=== PATIENT | male | born 1950 | race African-American/Black ===

== ENCOUNTER 2020-10-28 10:37 | Inpatient (IN) | payer MEDICARE, SELFPAY ==
[2020-10-28] VITALS (15 sets, daily range): BP systolic 91–129; BP diastolic 64–79; PULSE 97–115; RESP 20–32; TEMP 35.6–36.7; O2SAT 93–97; BMI 28.0; BMI 27.6
--- NOTE | 2020-10-28 10:53 | EKG12_ITS ---
Test Reason : Blood Pressure : / mmHG Vent. Rate : 112 BPM Atrial Rate : 112 BPM P-R Int : 164 ms QRS Dur : 068 ms QT Int : 310 ms P-R-T Axes : -01 -11 035 degrees QTc Int : 423 ms Sinus tachycardia Otherwise normal ECG Confirmed by URSZULA LEMOS, KENJI ([id number]), commercial lending relationship manager JAX BONDS ([id number]) on 11/01/2020 8:57:17 AM Referred By: CELY Confirmed By:KENJI SEAMAN MD
--- NOTE | 2020-10-28 10:54 | EDS_ITS ---
HPI History of Present Illness Chief Complaint: Shortness of Breath Informant: patient Onset/Context/Timing Onset: Days (2) Context: gradual Timing: Continuous Quality: Positive for - (short of breath) Current Severity: Moderate Maximum Severity: Moderate Worsened by: Exertion Relieved by: Rest Associated Symptoms cough Chest Pain: Positive for Tightness Narrative Narrative: Very poor historian who has been ill for 2 days occasional nonproductive cough, chest tightness, shortness of breath. He presents by squad. He does not talk a lot, he is for instance giving me 2 fingers to indicate that he has been ill for 2 days. States that he is hoarse, but he is able to talk without stridor or respiratory distress. 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 His chest discomfort is nonpleuritic. Shortness of breath is more prominent symptom. No known contact with anyone with Covid that he knows of. He had the Gil and Gil vaccine back in May. No known history of Covid. [facility] Medical History Above knee amputation of right lower extremity Hypertension Home Medications lisinopril 20 mg PO DAILY 10/28/20 [History Last Taken Unknown] Allergy/AdvReac Type Severity Reaction Status Date / Time No Known Allergies Allergy Verified 10/28/20 10:38 Social History Smoking Status: Current every day smoker tobacco type: cigarettes ROS ROS ED Constitutional Constitutional ED: Reports body ache(s), fatigue and malaise; Denies chills or fever(s) Eyes Eyes: Denies change in vision or diplopia ENT ENT ED: Reports hoarseness and sore throat; Denies rhinorrhea Cardiovascular Cardiovascular: Reports chest pain; Denies palpitations Respiratory/Chest Respiratory/Chest: Reports cough and dyspnea Gastrointestinal Gastrointestinal: Reports diarrhea; Denies abdominal pain, nausea or vomiting Genitourinary Genitourinary ED: Denies dysuria or hematuria Musculoskeletal Musculoskeletal: Denies back pain, extremity pain or neck pain Integumentary Denies abscess or rash Neurologic Neurologic: Denies headache(s), paresthesias or weakness Psychiatric Psychiatric: Denies anxiety or suicidal thoughts EXAM Physical Exam Const Vital Signs: 10/28/20 10:39 10/28/20 10:48 10/28/20 10:50 Temperature 98.1 F 98.1 F Temperature Source Oral Oral Pulse Rate 111 H 111 H Respiratory Rate 32 H 26 H Respiratory Effort Short of Breath Respiratory Pattern Tachypnea Blood Pressure 91/71 91/71 Blood Pressure Mean 77 77 Pulse Ox Oxygen Delivery Method Room Air Room Air Oxygen Flow Rate (L/min) 10/28/20 10:55 10/28/20 11:48 10/28/20 12:00 Temperature 98 F 98 F Temperature Source Temporal Temporal Pulse Rate 98 112 H 109 H Respiratory Rate 20 H 23 H 24 H Respiratory Effort Respiratory Pattern Normal Blood Pressure 103/79 103/69 Blood Pressure Mean 87 80 Pulse Ox 96 95 Oxygen Delivery Method Nasal Cannula Nasal Cannula Oxygen Flow Rate (L/min) 4 4 10/28/20 13:00 10/28/20 13:41 10/28/20 14:00 Temperature 98 F 97.9 F Temperature Source Temporal Temporal Pulse Rate 115 H 113 H Respiratory Rate 29 H 29 H Respiratory Effort Respiratory Pattern Blood Pressure 111/78 114/74 Blood Pressure Mean 89 87 Pulse Ox 97 93 Oxygen Delivery Method Nasal Cannula Nasal Cannula Nasal Cannula Oxygen Flow Rate (L/min) 4 4 3 10/28/20 15:04 Temperature 98 F Temperature Source Temporal Pulse Rate 112 H Respiratory Rate 29 H Respiratory Effort Respiratory Pattern Blood Pressure 111/70 Blood Pressure Mean 83 Pulse Ox 94 Oxygen Delivery Method Nasal Cannula Oxygen Flow Rate (L/min) 3 Positive well nourished and well developed General Appearance ED: well developed and NAD HEENT Reports moist mucous membranes normocephalic and atraumatic Eyes PERRL and EOMs intact bilaterally Neck full ROM, no lymphadenopathy and supple Resp normal respiratory effort and clear to auscultation bilaterally Cardio regular rate, regular rhythm and no murmurs Jugular Venous Distention: Negative for JVD Rate: tachycardic GI non-tender and non-distended Auscultation: normoactive bowel sounds Palpation: soft Back/Spine no CVA tenderness General Back: other FROM Extremity normal to inspection Extremity Narrative: Right lower extremity AKA General Extremety ED: Negative for edema, pulses abnormal or tenderness General Extremity: Negative for edema or pulses abnormal Neuro oriented x3, CN's II-XII intact bilaterally and no sensory deficits noted Sensorium / Orientation: awake and alert Motor Exam: strength 5/5 throughout Skin no rashes or lesions noted and no wounds MDM MDM MDM Narrative Medical decision making narrative: There were significant delays in caring for this patient due to him being a very difficult stick, delay in getting blood to send to the lab, and inability to get IV access. We consulted the PICC team to place a midline, thinking initially we would get CT angiography since his D- dimer was so high. Chest x-ray shows lobar infiltrate, and his rapid antigen Covid test returned positive. Again, this patient had been vaccinated in the past. However his creatinine returned at 10 with a BUN of 85. This apparently is new. Therefore CT angiography was discontinued, but he already was given the empiric Lovenox. He had no bleeding, and so far while in the emergency department he has had no bleeding. Other labs as below noted. No hyperkalemia or signs of it on EKG. Unable to start IV antibiotics until midline is going to be placed which is not going to be for at least another hour and he is already been here over 4 hours; therefore oral azithromycin 500 mg is given, he can get the rest of the antibiotics when an IV is obtained. He is clinically and hemodynamically stable at this time and the plan is admission to [facility] floor. I do not think he needs the ICU at this time. Lab Data Attestation: I reviewed the patient's lab results. Labs: Laboratory Results - last 24 hr 10/28/20 10/28/20 10/28/20 13:45 13:45 13:45 WBC 5.9 RBC 5.79 Hgb 15.8 Hct 47.5 MCV 82.0 MCH 27.3 MCHC 33.3 RDW Std Deviation 41.7 RDW Coeff of Alondra 14.1 Plt Count 132 L MPV 11.1 Immature Gran % (Auto) 0.800 Neut % (Auto) 81.3 H Lymph % (Auto) 8.1 L [place] % (Auto) 6.6 Eos % (Auto) 2.9 Baso % (Auto) 0.3 Absolute Neuts (auto) 4.8 Absolute Lymphs (auto) 0.48 L Nucleated RBC % 0 Differential Comment MEASUREMENT SUPERINTENDENT D-Dimer Quant (PE/DVT) Sodium 129 L Potassium 4.4 Chloride 95 L Carbon Dioxide 17.0 L Anion Gap 17 H BUN 85 H Creatinine 10.00 H* Estim Creat Clear Calc 6.29 Est GFR (MDRD) Af Amer 7 L Est GFR (MDRD) Non-Af 6 L BUN/Creatinine Ratio 8.5 L Glucose 122 H Lactic Acid Cancelled Calcium 8.8 Troponin I High Sens 38.3 10/28/20 13:45 WBC RBC Hgb Hct MCV MCH MCHC RDW Std Deviation RDW Coeff of Alondra Plt Count MPV Immature Gran % (Auto) Neut % (Auto) Lymph % (Auto) [place] % (Auto) Eos % (Auto) Baso % (Auto) Absolute Neuts (auto) Absolute Lymphs (auto) Nucleated RBC % Differential Comment D-Dimer Quant (PE/DVT) 1.94 H* Sodium Potassium Chloride Carbon Dioxide Anion Gap BUN Creatinine Estim Creat Clear Calc Est GFR (MDRD) Af Amer Est GFR (MDRD) Non-Af BUN/Creatinine Ratio Glucose Lactic Acid Calcium Troponin I High Sens Radiography Chest X-Ray - ED: 1 View, Read by ED Physician and Right Infiltrate Diagnostic Testing: Radiology Impression Chest X-Ray 10/28/20 12:35 IMPRESSION: The right upper lobe pneumonic infiltrate is identified with atelectasis and possibly a left lung base pneumonic infiltrate. Electronically Signed: Nick Pugh DO at 13:05 EDT Tel , Service support , EKG Initial EKG: Attestation: I personally reviewed and interpreted this EKG as follows: Interpretation: No Acute Injury Pattern and Sinus Tachycardia Prior: No Prior Discharge Plan Dx/Rx/DC Orders Clinical Impression: COVID-19, Pneumonia, Acute renal failure (ARF), Hypoxemia Disposition Disposition: Acute Care [facility]
[2020-10-28] MEDS: Albuterol 2.5 MG/3 ML VIAL.NEB. INHALATION (10:55)
--- NOTE | 2020-10-28 12:35 | RAD_ITS ---
EXAM DESCRIPTION: PORTABLE AP CHEST CLINICAL HISTORY: 70 years Male, cough sob cough sob COMPARISON: None FINDINGS: The thorax is intact. The heart and mediastinum appear to be within normal limits. The lungs show a patchy pneumonic infiltrate involving the anterior segment of the right upper lobe outlining the minor fissure. There is subsegmental atelectasis and possibly infiltrate also seen in the left lingula. RAD/Chest 1 View (Portable) IMPRESSION: The right upper lobe pneumonic infiltrate is identified with atelectasis and possibly a left lung base pneumonic infiltrate. Electronically Signed: Nick Pugh DO at 13:05 EDT Tel , Service support ,
[2020-10-28 14:07] LABS: Absolute Lymphocyte Count 0.48 X10^3/uL (0.83-4.51); Absolute Neutrophil Count 4.8 X10^3/uL (2.0-7.7); Basophil# 0.02 X10^3/uL; Basophil% 0.3 % (0-1); Differential Indicated SCAN CRITERIA MET; Eosinophil# 0.17 X10^3/uL; Eosinophils% 2.9 % (0-5); Hematocrit 47.5 % (40-54); Hemoglobin 15.8 g/dL (13.0-16.5); Lymphocyte # 0.48 X10^3/ul (0.83-4.51); Lymphocyte % 8.1 % (19-41); Mean Corp Hgb Conc 33.3 g/dL (32-36); Mean Corpuscular Hgb 27.3 pg (27.0-32.0); Mean Platelet Vol. 11.1 fl (6.2-12.0); Monocyte# 0.39 X10^3/uL; Monocyte% 6.6 % (0-10); NRBC Flagged by Analyzer 0 % (0-5); Neutrophil # 4.78 X10^3/uL (2.7-7.7); Neutrophil % 81.3 % (47-70); POSITIVE DIFFERENTIAL YES; Platelet Count 132 K/mm3 (150-450); RBC Distribution Width CV 14.1 % (11.6-14.6); RBC Distribution Width SD 41.7 fl (35.1-43.9); Red Blood Count 5.79 M/mm3 (4.6-6.2); White Blood Count 5.9 K/mm3 (4.4-11.0)
[2020-10-28 14:26] LABS: D-Dimer Quantitative (DVT/PE) 1.94 FEU/ug/m (0.27-0.49)
--- NOTE | 2020-10-28 14:41 | ED.RN ---
[employer] CALLED FOR LINE PLACEMENT
[2020-10-28 14:48] LABS: Anion Gap 17 (5-15); BUN 85 mg/dL (7-18); BUN/Creat Ratio 8.5 RATIO (10-20); Calcium,Total 8.8 mg/dL (8.5-10.1); Chloride 95 mmol/L (98-107); EST Glomerular Filtration Rate 6 mL/min (>60); Est Glom Filt Rate - Afr Amer 7 mL/min (>60); Estimated Creatinine Clearance 6.29 ml/min; Glucose 122 mg/dL (74-106); Potassium 4.4 mmol/L (3.5-5.1); Sodium Level 129 mmol/L (136-145); Troponin-I HS 38.3 pg/mL (3.0-78.5)
[2020-10-28] MEDS: Enoxaparin 80 MG/0.8 ML Syringe SC (14:51)
--- NOTE | 2020-10-28 16:36 | CT_ITS ---
STUDY: CT CHEST WITHOUT CONTRAST REASON FOR EXAM: Male, 70 years old. COVID pneumonia RADIATION DOSAGE (If Supplied By Facility): CTDIvol = ( 14.27 ) mGy, DLP = ( 506.17 ) mGycm TECHNIQUE: Transaxial imaging was performed without the administration of intravenous contrast material. Individualized dose optimization techniques were used for this CT. COMPARISON: None. FINDINGS: There are multifocal patchy areas of increased density with interstitial thickening in both lower lobes and to lesser extent the upper lobes consistent with Covid 19 pneumonia. There is no demonstrated pleural abnormality. Normal heart and pericardium. Normal mediastinum. Normal hilar regions. Normal unenhanced pulmonary arteries. Normal aorta arch and descending thoracic aorta. Dorsal spine demonstrates degenerative change Gallbladder has been removed surgically. CT/Chest without Contrast IMPRESSION: Findings consistent with Covid 19 pneumonia more pronounced in the lower lobes. Electronically Signed: Joao Madrigal MD at 19:12 EDT , Service support ,
--- NOTE | 2020-10-28 16:36 | US_ITS ---
STUDY: RENAL ULTRASOUND - COMPLETE REASON FOR EXAM: Male, 70 years old. WOJCIECH TECHNIQUE: Ultrasound evaluation of the kidneys was performed with real-time and static bingham-scale imaging. COMPARISON: None. FINDINGS: RIGHT KIDNEY: Normal location of the right kidney, which is normal in size. The right kidney measures 9.2 x 4.4 x 3.8 cm. There is a normal cortex of the right kidney. The renal cortex measures 1.4 cm. There is no right renal mass or cyst. There are no right renal calculi. There is no right hydronephrosis. DISTAL RIGHT URETER: Partially visualized adjacent to the prostate. LEFT KIDNEY: Normal location of the left kidney, which is normal in size. The left kidney measures 9.7 x 5.2 x 5.0 cm. There is a normal cortex of the left kidney. The renal cortex measures 1.5 cm. There are 2 small cysts in the left kidney measuring 1.1 x 1.2 x 0.9 and 1.0 x 0.8 x 0.8 cm. There are no left renal calculi. There is no left hydronephrosis. DISTAL LEFT URETER: A few visualized adjacent to the enlarged prostate. The prostate is enlarged and impresses into the base of the bladder. This visualized low attenuating cystic structure within the prostate. Prostate volume was given at 70.9 mL. There is a small prostate low echo nodule, or cyst BLADDER: The distended urinary bladder has a volume of 63 ml. There is no demonstrated mass within the urinary bladder. There are no demonstrated bladder calculi. US/Kidney and Bladder IMPRESSION: Small left renal cysts. No hydronephrosis. Enlarged prostate small cystic structure recommend follow-up prostate laboratory values clinical exam. The prostate pushes into the base of the bladder. Cannot exclude chronic partial outlet obstruction. Electronically Signed: Safia Driver MD at 10:02 EDT Tel , Service support ,
--- NOTE | 2020-10-28 17:00 | NURSING ---
executive director of nursing here for Midline placement.
--- NOTE | 2020-10-28 17:45 | NURSING ---
Patient off unit for US and CT.
[2020-10-28 18:26] LABS: Ferritin 940 ng/mL (26-388)
[2020-10-28] MEDS: Dextrose 5%/0.9% NaCl 1,000 ML 125 ML IV (18:34)
[2020-10-28] MEDS: 0.9% Saline Lock 10 ML Syringe IV (18:39)
[2020-10-28] MEDS: dexAMETHasone 4 MG/ML Vial IV (18:39)
--- NOTE | 2020-10-28 19:48 | PCM.HP.STD ---
HPI - General General Date of Admission: 10/28/20 HPI Narrative DALLAS CRABTREE, is a 70 M who presents with systemic symptoms of malaise, weakness, fatigue, generalized muscle aches and pains and arthralgias which have been ongoing for the last several days. Of note the patient is really a very poor historian and obtaining a history from him extremely challenging. Uncertain if this is due to the severity of his illness at baseline cognitive impairment. Suspect more likely the former. Found to be COVID-19 positive and noted to be hypoxic as well. Of note is that he did receive the Gil & Gil vaccine in May. Patient is unable to provide much as to his past medical history also family history. [facility] Medical History Above knee amputation of right lower extremity Hypertension Home Medications lisinopril 20 mg PO DAILY 10/28/20 [History Last Taken Unknown] Allergy/AdvReac Type Severity Reaction Status Date / Time No Known Allergies Allergy Verified 10/28/20 10:38 Social History Smoking Status: Current every day smoker tobacco type: cigarettes ROS ROS Narrative Denies any chest pain. Denies any abdominal pain or nausea vomiting. Does admit to having diarrhea. All other systems reviewed as much as patient is able to provide and essentially negative. Vital Signs Vital Signs Vital Signs: 10/28/20 10:39 10/28/20 10:48 10/28/20 10:50 Temperature 36.7 C 36.7 C Temperature Source Oral Oral Pulse Rate 111 H 111 H Respiratory Rate 32 H 26 H Respiratory Effort Short of Breath Respiratory Depth Respiratory Pattern Tachypnea Blood Pressure 91/71 91/71 Blood Pressure Mean 77 77 Blood Pressure Source Blood Pressure Position Blood Pressure Location Pulse Ox Oxygen Delivery Method Room Air Room Air Oxygen Flow Rate (L/min) 10/28/20 10:55 10/28/20 11:48 10/28/20 12:00 Temperature 36.6 C 36.6 C Temperature Source Temporal Temporal Pulse Rate 98 112 H 109 H Respiratory Rate 20 H 23 H 24 H Respiratory Effort Respiratory Depth Respiratory Pattern Normal Blood Pressure 103/79 103/69 Blood Pressure Mean 87 80 Blood Pressure Source Blood Pressure Position Blood Pressure Location Pulse Ox 96 95 Oxygen Delivery Method Nasal Cannula Nasal Cannula Oxygen Flow Rate (L/min) 4 4 10/28/20 13:00 10/28/20 13:41 10/28/20 14:00 Temperature 36.6 C 36.6 C Temperature Source Temporal Temporal Pulse Rate 115 H 113 H Respiratory Rate 29 H 29 H Respiratory Effort Respiratory Depth Respiratory Pattern Blood Pressure 111/78 114/74 Blood Pressure Mean 89 87 Blood Pressure Source Blood Pressure Position Blood Pressure Location Pulse Ox 97 93 Oxygen Delivery Method Nasal Cannula Nasal Cannula Nasal Cannula Oxygen Flow Rate (L/min) 4 4 3 10/28/20 15:04 10/28/20 17:30 10/28/20 18:00 Temperature 36.6 C 36.1 C L Temperature Source Temporal Oral Pulse Rate 112 H 115 H Respiratory Rate 29 H 24 H Respiratory Effort Normal Non-Labored Respiratory Depth Normal Respiratory Pattern Normal Blood Pressure 111/70 113/64 Blood Pressure Mean 83 80 Blood Pressure Source Monitor Blood Pressure Position Semi-Fowlers Blood Pressure Location Right Arm Pulse Ox 94 93 Oxygen Delivery Method Nasal Cannula Nasal Cannula Nasal Cannula Oxygen Flow Rate (L/min) 3 5 6 10/28/20 18:26 10/28/20 18:51 Temperature 35.6 C L Temperature Source Oral Pulse Rate 115 H 115 H Respiratory Rate 22 H Respiratory Effort Respiratory Depth Respiratory Pattern Blood Pressure 129/72 H Blood Pressure Mean 91 Blood Pressure Source Monitor Blood Pressure Position Semi-Fowlers Blood Pressure Location Right Arm Pulse Ox 95 Oxygen Delivery Method Nasal Cannula Oxygen Flow Rate (L/min) 6 Weight Weight: 77.746 kg Body Mass Index (BMI) 27.6 Physical Exam Narrative General exam. Acutely and chronically ill-appearing. Lethargic, psychomotor retardation. HEENT. Oral mucosa is dry, mucosae pink Neck. Neck is supple. Heart. First and second heart sounds heard. No murmurs. Lungs. Lungs are clear to auscultation anteriorly and laterally. Abdomen. Soft and full. Nontender no organomegaly. No palpable masses. Extremities. Patient is status post left BKA. 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 Psychomotor retardation, oriented x3, power in all extremities 4+/5. All other organ systems examined and essentially noncontributory. Results Lab / Micro Data Result Diagrams: 10/28/20 13:45 10/28/20 13:45 Labs: Laboratory Results - last 24 hr 10/28/20 13:45: WBC 5.9, RBC 5.79, Hgb 15.8, Hct 47.5, MCV 82.0, MCH 27.3, MCHC 33.3, RDW Std Deviation 41.7, RDW Coeff of Alondra 14.1, Plt Count 132 L, MPV 11.1, Immature Gran % (Auto) 0.800, Neut % (Auto) 81.3 H, Lymph % (Auto) 8.1 L, [place] % (Auto) 6.6, Eos % (Auto) 2.9, Baso % (Auto) 0.3, Absolute Neuts (auto) 4.8, Absolute Lymphs (auto) 0.48 L, Nucleated RBC % 0, Differential Comment MANAGER MECHANICAL MAINTENANCE 10/28/20 13:45: Sodium 129 L, Potassium 4.4, Chloride 95 L, Carbon Dioxide 17.0 L, Anion Gap 17 H, BUN 85 H, Creatinine 10.00 H*, Estim Creat Clear Calc 6.29, Est GFR (MDRD) Af Amer 7 L, Est GFR (MDRD) Non-Af 6 L, BUN/Creatinine Ratio 8.5 L, Glucose 122 H, Calcium 8.8, Troponin I High Sens 38.3 10/28/20 13:45: Lactic Acid Cancelled 10/28/20 13:45: D-Dimer Quant (PE/DVT) 1.94 H* 10/28/20 13:45: Ferritin 940 H Micro: Microbiology 10/28/20 11:55 Mucosa - Nose SARS-CoV-2 Antigen (Rapid) - Final SARS-CoV-2 (COVID 19) 10/28/20 11:55 Mucosa - Nose Influenza Types A,B Direct FA (KENNY) - Final Radiology Impression Chest X-Ray 10/28/20 12:35 IMPRESSION: The right upper lobe pneumonic infiltrate is identified with atelectasis and possibly a left lung base pneumonic infiltrate. Electronically Signed: Dallas Pugh DO at 13:05 EDT Tel , Service support , Chest CT 10/28/20 16:36 IMPRESSION: Findings consistent with Covid 19 pneumonia more pronounced in the lower lobes. Electronically Signed: Joao Madrigal MD at 19:12 EDT , Service support , Assessment & Plan Assessment/Plan (1) Pneumonia due to COVID-19 virus: PLAN: Occurred despite having received COVID-19 vaccine. Unable to get remdesivir due to renal failure. Will start on dexamethasone. Consult infectious disease. Airborne and contact isolation precautions. (2) Acute and chronic respiratory failure with hypoxia: PLAN: Secondary to COVID-19 pneumonia. Oxygen supplementation. Monitor oxygen saturations. Titrate oxygen supplementation as necessary. (3) Acute kidney injury: PLAN: Uncertain if this is acute kidney injury, acute on chronic kidney injury or progression of chronic kidney disease. Patient has had diarrhea for the last few days and oral intake has been impaired as well and so may be of prerenal etiology. Patient on lisinopril for hypertension and this will be discontinued for now. Check urinalysis, urine sodium, renal ultrasound to rule out renal medical disease obstructive uropathy, and consult nephrology. Work-up for other potential etiologies. Gentle fluid hydration with normal saline. Charges/Coding Visit Charges Inpatient E&M: 63041 Init Hosp L3
[2020-10-28] MEDS: Heparin Injection (Vial) 5,000 UNIT/ML VIAL 5000 UNIT SC (20:17)
[2020-10-28] MEDS: Ceftriaxone 1 GM/50 ML BAG IV (20:18)
[2020-10-28 22:08] LABS: Partial Thromboplast Time 36.5 Seconds (24.1-36.2)
[2020-10-28 22:12] LABS: LDH 615 U/L (87-241)
[2020-10-29] VITALS (13 sets, daily range): BP systolic 103–119; BP diastolic 74–84; PULSE 81–91; RESP 20–28; TEMP 36.2–37.2; O2SAT 92–96
[2020-10-29] MEDS: Dextrose 5%/0.9% NaCl 1,000 ML 125 ML IV ×2 (04:33→15:08)
[2020-10-29] MEDS: Heparin Injection (Vial) 5,000 UNIT/ML VIAL 5000 UNIT SC ×3 (05:41→20:32)
[2020-10-29] MEDS: dexAMETHasone 4 MG/ML Vial IV (09:41)
[2020-10-29] MEDS: Ceftriaxone 1 GM/50 ML BAG IV (09:43)
[2020-10-29 10:02] LABS: Absolute Lymphocyte Count 0.48 X10^3/uL (0.83-4.51); Absolute Neutrophil Count 3.4 X10^3/uL (2.0-7.7); Basophil# 0.01 X10^3/uL; Basophil% 0.2 % (0-1); Hematocrit 43.2 % (40-54); Hemoglobin 14.5 g/dL (13.0-16.5); Lymphocyte # 0.48 X10^3/ul (0.83-4.51); Lymphocyte % 11.7 % (19-41); Mean Corp Hgb Conc 33.6 g/dL (32-36); Mean Corpuscular Hgb 27.7 pg (27.0-32.0); Mean Corpuscular Volume 82.4 fL (80-94); Mean Platelet Vol. 10.8 fl (6.2-12.0); Monocyte# 0.23 X10^3/uL; Monocyte% 5.6 % (0-10); NRBC Flagged by Analyzer 0 % (0-5); Neutrophil # 3.36 X10^3/uL (2.7-7.7); Neutrophil % 81.8 % (47-70); POSITIVE DIFFERENTIAL YES; POSITIVE MORPHOLOGY YES; Platelet Count 161 K/mm3 (150-450); RBC Distribution Width CV 14.4 % (11.6-14.6); RBC Distribution Width SD 42.9 fl (35.1-43.9); Red Blood Count 5.24 M/mm3 (4.6-6.2); White Blood Count 4.1 K/mm3 (4.4-11.0)
[2020-10-29 10:09] LABS: Differential Indicated SCAN CRITERIA MET
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
[2020-10-29 10:41] LABS: ALB/GLOB Ratio 0.5 RATIO (0.9-2.4); AST(SGOT) 82 U/L (15-37); Alanine Aminotransfer ALT/SGPT 53 U/L (16-61); Albumin, Serum 2.7 g/dL (3.2-5.0); Alkaline Phosphatase 47 U/L (45-117); Anion Gap 12 (5-15); BUN 85 mg/dL (7-18); Calcium,Total 8.2 mg/dL (8.5-10.1); Chloride 102 mmol/L (98-107); Creatinine, Serum 7.11 mg/dL (0.70-1.30); EST Glomerular Filtration Rate 8 mL/min (>60); Est Glom Filt Rate - Afr Amer 10 mL/min (>60); Estimated Creatinine Clearance 8.85 ml/min; Globulin 5.1 g/dL (2.2-4.2); Glucose 144 mg/dL (74-106); Phosphorus 4.4 mg/dL (2.5-4.9); Protein, Total 7.8 g/dL (6.4-8.2); Sodium Level 133 mmol/L (136-145); Thyroid Stim Hormone (TSH) 0.23 uIU/mL (0.358-3.74)
[2020-10-29 11:09] LABS: HIV - WCH Non-Reactive (Nonreactive); Procalcitonin 0.48 ng/mL (0.00-0.09)
--- NOTE | 2020-10-29 12:20 | CASEMGMT ---
WILIAM REDDY Assessment: Face to Face with pt for initial transition planning/care coordination assessment. WILIAM REDDY introduced self and role at [facility], pt voices understanding and consents to assessment. Pt is A/O x4 and answers all questions appropriately at this time. Pt speaks very softly. Pt sitting up in bed in no distress with O2 on. Care providers, pharmacy, and demographics verified/updated. Admitting Dx:Covid pna, lobar pna, arf, hypoxemia PCP: Pt does not remember his PCP's name. Specialists:Pt denies having any specialists. Preferred Pharmacy: [facility] Retail Insurance: Verenice BLACKMAN [employer] Advantage Prescription Benefit: yes LW/HPOA: Pt denies having a LW/DPOA. LNOK: Yaya Sanchez, brother Living Arrangements: Pt lives in a single story house with no steps to enter, alone. Pt states he is I in ADL's and denies concerns at home. Pt states he uses a motorized w/c. Transportation: Pt states he drives and denies concerns with transportation. DME/HHC/SNF: Pt has a motorized w/c, crutches and prosthetic leg. Pt states he has had HHC but is unsure of the agency. 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 Pt states his work transported him by van from his hometown to work. Pt states he got covid from another employee in the van. Pt was tested for covid here at [facility]. Pt states no concerns with going home at time of dc. He states his sister lives beside him and can help with his care. Pt is able to quarantine post dc and his sister is able to get him groceries and supplies. Pt states his work will be transporting him home via van. Pt states no further concerns/needs. CM to follow all home needs and set up out of state. Pt is not aware of any DME companies in his hometown should he need O2. Advised pt to ask CM if any further question/concerns/needs arise, voices understanding. Pt Goal: Home Plan: Home with sister support.
--- NOTE | 2020-10-29 12:51 | PN.HOSP_ITS ---
Subjective Subjective Patient was seen and examined today, it is difficult to get a good history from the patient, he came to the ER at [facility] with complaints of shortness of breath, he was in town in [place] due to employment, he easily lives in [place]. Patient states he had the Gil & Gil COVID-19 vaccine in May of this year, he denies any serious ongoing medical problems although he states he does take blood pressure medications. Lab work done in the emergency room revealed a highly elevated creatinine, patient denied to this examiner any history of renal failure. I performed a PCR COVID-19 test on the patient today which was positive. Due to the patient's high flow oxygen rate this morning (7 L) I elected to have pulmonary medicine see the patient. I also talked at length with nephrology today, patient's repeat creatinine today was improved and he is putting out urine and so at this time nephrology does not think the patient needs dialysis. Patient denies any fever or chills at this time to this examiner and he denies any severe shortness of breath at this time. Objective Data Objective Data Vital Signs: Vital Signs Temp Pulse Resp BP Pulse Ox 97.3 F L 89 20 H 103/76 94 10/29/20 09:00 10/29/20 09:00 10/29/20 09:00 10/29/20 09:00 10/29/20 09:00 Oxygen Flow Rate (L/min) 7 Oxygen Delivery Method Nasal Cannula Weight: 77.8 kg Body Mass Index (BMI) 27.6 Intake & Output: Intake and Output for Last 24 Hours 10/27/20 10/28/20 10/29/20 23:59 23:59 23:59 Intake Total 334.17 / 434.17 2503.33 / 2503.33 Output Total 1100 / 1100 Balance 334.17 / 134.17 1403.33 / 1403.33 Medical Nutrition Assessment Dietitian: Nutrition Therapy Diagnosis Start: 10/29/20 11:27 Freq: Status: Active Protocol: Document 10/29/20 11:44 ANIL (Rec: 10/29/20 11:44 ANIL [id number]) Nutrition Malnutrition Evidence of Malnutrition Exists Yes Malnutrition (severe): Acute Illness/Injury Evidenced By Suboptimal Energy Intake ( Severe),Weight Loss (Severe) Clinical Problem Acute Disease or Injury Related Malnutrition Etiology related to acute illness Signs/Symptoms as evidenced by 5% wt loss x 1 mo and <50% po intake x 5 days prior to admission Status Active Problem Recommendation Dietitian Recommendations/Changes Will liberalize diet to Regular low sodium, d/t signs and symptoms of malnutrition, with mech soft consistency for ease of chewing - no teeth and dentures at home. 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 10/28/20 13:45: Sodium 129 L, Potassium 4.4, Chloride 95 L, Carbon Dioxide 17.0 L, Anion Gap 17 H, BUN 85 H, Creatinine 10.00 H*, Estim Creat Clear Calc 6.29, Est GFR (MDRD) Af Amer 7 L, Est GFR (MDRD) Non-Af 6 L, BUN/Creatinine Ratio 8.5 L, Glucose 122 H, Calcium 8.8, Troponin I High Sens 38.3 10/28/20 13:45: Lactic Acid Cancelled 10/28/20 13:45: D-Dimer Quant (PE/DVT) 1.94 H* 10/28/20 13:45: Ferritin 940 H 10/28/20 13:45: Lactate Dehydrogenase 615 H 10/28/20 21:40: APTT 36.5 H 10/29/20 09:25: COVID-19 (FROY) Detected 10/29/20 09:50: Procalcitonin 0.48 H, HIV 1&2 Antibody Non-Reactive 10/29/20 09:50: WBC 4.1 L, RBC 5.24, Hgb 14.5, Hct 43.2, MCV 82.4, MCH 27.7, MCHC 33.6, RDW Std Deviation 42.9, RDW Coeff of Alondra 14.4, Plt Count 161, MPV 10.8, Immature Gran % (Auto) 0.700, Neut % (Auto) 81.8 H, Lymph % (Auto) 11.7 L, [place] % (Auto) 5.6, Eos % (Auto) 0.0, Baso % (Auto) 0.2, Absolute Neuts (auto) 3.4, Absolute Lymphs (auto) 0.48 L, Nucleated RBC % 0, Diff Path Review July10/29/20 09:50: Sodium 133 L, Potassium 4.0, Chloride 102, Carbon Dioxide 19.0 L , Anion Gap 12, BUN 85 H, Creatinine 7.11 H, Estim Creat Clear Calc 8.85, Est GFR (MDRD) Af Amer 10 L, Est GFR (MDRD) Non-Af 8 L, BUN/Creatinine Ratio 12.0, Glucose 144 H, Calcium 8.2 L, Phosphorus 4.4, Total Bilirubin 0.40, AST 82 H, ALT 53, Alkaline Phosphatase 47, Total Protein 7.8, Albumin 2.7 L, Globulin 5.1 H, Albumin/Globulin Ratio 0.5 L, TSH 0.23 L Micro: Microbiology 10/28/20 11:55 Mucosa - Nose SARS-CoV-2 Antigen (Rapid) - Final SARS-CoV-2 (COVID 19) 10/28/20 11:55 Mucosa - Nose Influenza Types A,B Direct FA (KENNY) - Final Radiography Diagnostic Testing: Radiology Impression Chest X-Ray 10/28/20 12:35 IMPRESSION: The right upper lobe pneumonic infiltrate is identified with atelectasis and possibly a left lung base pneumonic infiltrate. Electronically Signed: Nick Pugh DO at 13:05 EDT Tel , Service support , Chest CT 10/28/20 16:36 IMPRESSION: Findings consistent with Covid 19 pneumonia more pronounced in the lower lobes. Electronically Signed: Joao Madrigal MD at 19:12 EDT , Service support , Renal Ultrasound 10/28/20 16:36 IMPRESSION: Small left renal cysts. No hydronephrosis. Enlarged prostate small cystic structure recommend follow-up prostate laboratory values clinical exam. The prostate pushes into the base of the bladder. Cannot exclude chronic partial outlet obstruction. Electronically Signed: Safia Driver MD at 10:02 EDT Tel , Service support , Physical Exam Const alert, oriented x3, no apparent distress and healthy appearing General Appearance: cooperative, well kempt and well developed Orientation / Consciousness: awake, oriented to person, oriented to place and oriented to time HEENT normocephalic, head/scalp atraumatic and moist oral mucous membranes Head and Scalp: normocephalic Eyes PERRL, EOMs intact bilaterally and conjunctivae normal Neck nuchal rigidity, supple, no JVD, thyroid normal and no carotid bruits General: trachea midline Resp normal respiratory effort, no retractions, no use of accessory muscles and clear to auscultation bilaterally Auscultation: Negative for rales, rhonchi or wheezes Cardio regular rate, regular rhythm, S1 normal heart sound, S2 normal heart sound, no murmurs, no rub and no gallops GI normal to inspection, nondistended, normoactive bowel sounds, soft to palpation, non-tender and non-distended Extremity no clubbing, cyanosis or edema Skin no rashes or lesions noted General Skin Exam: no breakdown Neuro oriented x3, CN's II-XII intact bilaterally, no focal motor deficits and no sensory deficits noted Sensorium / Orientation: awake and alert Speech: speech normal Psych thought process normal and affect normal Assessment & Plan Assessment/Plan (1) Pneumonia due to COVID-19 virus: PLAN: 1. COVID-19 pneumonia-it appears that the patient has COVID-19 pneumonia despite adequate vaccination, I talked with pulmonary medicine about his care and pulmonary medicine does not feel he is a candidate for remdesivir due to his severe kidney dysfunction at this time. Patient will be treated with dexamethasone and supportive care. #2 acute kidney failure-etiology unclear, it is possible the patient has ATN, nephrology will follow the patient #3 essential hypertension #4 acute hypoxic respiratory failure secondary to #1-patient's O2 sat will be monitored, pulmonary medicine is participating in his care #5 probable BPH-patient's renal ultrasound was read out as showing an enlarged prostate with a small cystic structure, I will order a PSA test. No hydronephrosis was noted. Charges/Coding Visit Charges Inpatient E&M: 15874 Subs Hosp L2
[2020-10-29 13:05] LABS: Mucous, Urine 0 SEEN /hpf (<or=2+); White Blood Cells 0 SEEN /hpf (0-5)
[2020-10-29 13:17] LABS: Color, Urine Yellow (Yellow); Glucose, Dipstick Normal (Normal); Ketone-Dipstick Negative (Negative); Leukocyte Esterase-Dipstick Negative /ul (Negative); Nitrite-Dipstick Negative (Negative); Occult Blood-Urine 150 /ul (Negative); Protein-Dipstick 100 mg/dl (Negative); Urine Bilirubin Dipstick Negative (Negative); Urine Clarity Sl. Cloudy (Clear); Urine Urobilinogen Normal (Normal)
[2020-10-29 13:22] LABS: Urine Sodium 28 mmol/L (Not Establ.)
[2020-10-29 13:26] LABS: Red Blood Cells-Urine 0-5 SEEN /hpf (0-5); Squamous Epithelial Cells - UA 0-5 SEEN /hpf (0-5)
[2020-10-29 13:27] LABS: Amorphous Sediment 1+; Bacteria 1+ /hpf (None Seen)
--- NOTE | 2020-10-29 18:26 | PCM.CONS.R ---
Assessment & Plan Assessment/Plan (1) Acute kidney injury: PLAN: no past records available. so far renal US without hydronephrosis. UA shows some protein and blood cells. other labs, elevated LDH with normal Platelets and HB, Elevated protein gap, elevated PSA. not sure if he has any chronic kidney disease but renal size is not low. with fluids alone cr is better, although BUN is not better a whole lot. could be all volume depletion. if it does not improve tomorrow will order further work up. dw Dr Parker Being treated for COVID with decadron and steroids HPI Consult Data Date of Consult: 10/29/20 HPI Narrative HPI Narrative: DALLAS CRABTREE, is a 70 M who presents to hospital with shortness of breath. renal consulted for WOJCIECH. patient is from [place], came to [place] to work for [employer] . somewhat poor historian. says he does not see a doctor regularly, takes BP meds. unable to tell me who gives him BP meds. denies any urinary symptoms, kidney issues in the past. currently denies any complaints. [facility] Medical History Above knee amputation of right lower extremity Hypertension Home Medications lisinopril 20 mg PO DAILY 10/28/20 [History Last Taken Unknown] Allergy/AdvReac Type Severity Reaction Status Date / Time No Known Allergies Allergy Verified 10/28/20 10:38 Social History Smoking Status: Current every day smoker tobacco type: cigarettes Physical Exam Narrative Alert awake oriented x 3 no obvious distress no pallor no icterus no JVD s1s2 no murmurs lungs clear abdomen soft no organomegaly no edema no cyanosis santos + Medical Records Data Medical Nutrition Assessment Dietitian: Nutrition Therapy Diagnosis Start: 10/29/20 11:27 Freq: Status: Active Protocol: Document 10/29/20 11:44 ANIL (Rec: 10/29/20 11:44 ANIL [id number]) Nutrition Malnutrition Evidence of Malnutrition Exists Yes Malnutrition (severe): Acute Illness/Injury Evidenced By Suboptimal Energy Intake ( Severe),Weight Loss (Severe) Clinical Problem Acute Disease or Injury Related Malnutrition Etiology related to acute illness Signs/Symptoms as evidenced by 5% wt loss x 1 mo and <50% po intake x 5 days prior to admission Status Active Problem Recommendation Dietitian Recommendations/Changes Will liberalize diet to Regular low sodium, d/t signs and symptoms of malnutrition, with [place] clinich soft consistency for ease of chewing - no teeth and dentures at home. Will provide 120 ml ensure enlive w/ meals Lab / Micro Data Result Diagrams: 10/29/20 09:50 10/29/20 09:50 Labs: Laboratory Results - last 24 hr 10/28/20 13:45: Ferritin 940 H 10/28/20 13:45: Lactate Dehydrogenase 615 H 10/28/20 21:40: APTT 36.5 H 10/29/20 01:15: Urine Color Yellow, Urine Clarity Sl. Cloudy, Urine pH 5.0, Ur Specific [place] 1.030, Urine Protein 100 H, Urine Glucose (UA) Normal, Urine Ketones Negative, Urine Occult Blood 150 H, Urine Nitrite Negative, Urine Bilirubin Negative, Urine Urobilinogen Normal, Ur Leukocyte Esterase Negative, Urine RBC 0-5 SEEN, Urine WBC 0 SEEN, Ur Squamous Epith Cells 0-5 SEEN, Amorphous Sediment 1+, Urine Bacteria 1+, Urine Mucus 0 SEEN 10/29/20 01:15: Ur Random Sodium 28 10/29/20 09:25: COVID-19 (FROY) Detected 10/29/20 09:50: Procalcitonin 0.48 H, HIV 1&2 Antibody Non-Reactive 10/29/20 09:50: WBC 4.1 L, RBC 5.24, Hgb 14.5, Hct 43.2, MCV 82.4, MCH 27.7, MCHC 33.6, RDW Std Deviation 42.9, RDW Coeff of Alondra 14.4, Plt Count 161, MPV 10.8, Immature Gran % (Auto) 0.700, Neut % (Auto) 81.8 H, Lymph % (Auto) 11.7 L, [place] % (Auto) 5.6, Eos % (Auto) 0.0, Baso % (Auto) 0.2, Absolute Neuts (auto) 3.4, Absolute Lymphs (auto) 0.48 L, Nucleated RBC % 0, Diff Path Review July10/29/20 09:50: Sodium 133 L, Potassium 4.0, Chloride 102, Carbon Dioxide 19.0 L, Anion Gap 12, BUN 85 H, Creatinine 7.11 H, Estim Creat Clear Calc 8.85, Est GFR (MDRD) Af Amer 10 L, Est GFR (MDRD) Non-Af 8 L, BUN/Creatinine Ratio 12.0, Glucose 144 H, Calcium 8.2 L, Phosphorus 4.4, Total Bilirubin 0.40, AST 82 H, ALT 53, Alkaline Phosphatase 47, Total Protein 7.8, Albumin 2.7 L, Globulin 5.1 H, Albumin/Globulin Ratio 0.5 L, TSH 0.23 L 10/29/20 09:50: Total PSA 39.60 H Radiology Impression Chest CT 10/28/20 16:36 IMPRESSION: Findings consistent with Covid 19 pneumonia more pronounced in the lower lobes. Electronically Signed: Joao Madrigal MD at 19:12 EDT , Service support , Renal Ultrasound 10/28/20 16:36 IMPRESSION: Small left renal cysts. No hydronephrosis. Enlarged prostate small cystic structure recommend follow-up prostate laboratory values clinical exam. The prostate pushes into the base of the bladder. Cannot exclude chronic partial outlet obstruction. Electronically Signed: Safia Driver MD at 10:02 EDT Tel , Service support ,
[2020-10-30] VITALS (12 sets, daily range): BP systolic 100–139; BP diastolic 75–99; PULSE 67–88; RESP 17–22; TEMP 36.3–37; O2SAT 94–97
[2020-10-30] MEDS: Dextrose 5%/0.9% NaCl 1,000 ML 125 ML IV ×2 (00:40→09:24)
[2020-10-30] MEDS: Acetaminophen 325 MG Tablet 650 MG PO ×2 (05:04→17:45)
[2020-10-30] MEDS: Heparin Injection (Vial) 5,000 UNIT/ML VIAL 5000 UNIT SC ×3 (05:05→20:44)
[2020-10-30 06:26] LABS: Absolute Lymphocyte Count 0.45 X10^3/uL (0.83-4.51); Absolute Neutrophil Count 5.7 X10^3/uL (2.0-7.7); Basophil# 0.01 X10^3/uL; Basophil% 0.1 % (0-1); Hematocrit 40.6 % (40-54); Hemoglobin 13.4 g/dL (13.0-16.5); Lymphocyte # 0.45 X10^3/ul (0.83-4.51); Lymphocyte % 6.7 % (19-41); Mean Corpuscular Hgb 27.1 pg (27.0-32.0); Mean Corpuscular Volume 82.2 fL (80-94); Mean Platelet Vol. 11.3 fl (6.2-12.0); Monocyte# 0.43 X10^3/uL; Monocyte% 6.4 % (0-10); NRBC Flagged by Analyzer 0 % (0-5); Neutrophil # 5.72 X10^3/uL (2.7-7.7); Neutrophil % 85.9 % (47-70); POSITIVE DIFFERENTIAL YES; Platelet Count 166 K/mm3 (150-450); RBC Distribution Width CV 14.4 % (11.6-14.6); RBC Distribution Width SD 42.7 fl (35.1-43.9); Red Blood Count 4.94 M/mm3 (4.6-6.2); White Blood Count 6.7 K/mm3 (4.4-11.0)
[2020-10-30 06:41] LABS: Differential Indicated SCAN CRITERIA MET
[2020-10-30 07:00] LABS: Anion Gap 12 (5-15); BUN 73 mg/dL (7-18); BUN/Creat Ratio 20.9 RATIO (10-20); Chloride 109 mmol/L (98-107); EST Glomerular Filtration Rate 19 mL/min (>60); Est Glom Filt Rate - Afr Amer 22 mL/min (>60); Estimated Creatinine Clearance 17.98 ml/min; Glucose 151 mg/dL (74-106); Potassium 4.1 mmol/L (3.5-5.1); Sodium Level 135 mmol/L (136-145)
--- NOTE | 2020-10-30 08:53 | PN.CC_ITS ---
Assessment & Plan Assessment/Plan (1) Pneumonia due to COVID-19 virus: (2) Acute kidney injury: (3) Hypoxemia: PLAN: RECOMMENDATIONS: 1. Continue intervention for renal failure per nephrology 2. Continue with anticoagulation 3. Treat with Decadron, but avoid Remdesivir 4. Increase activity as tolerated 5. Reasonable to continue antibiotics pending culture data 6. Potential discharge if able to tolerate 6 L or less IMPRESSIONS: 1. Acute on possible chronic kidney disease Patient with significantly elevated BUN and creatinine. Patient's mentation is much improved, along with creatinine today. Patient does report a history of renal dysfunction, but baseline is unknown. Patient should have records from [facility] requested to help guide therapy. Await nephrology's recommendations for possible dialysis. Patient appears to be improving from a renal standpoint. Continue with nephrology recommendations. Will likely not require any hemodialysis. 2. Acute hypoxic respiratory insufficiency secondary to COVID-19 Patient with bilateral groundglass opacities noted on CT scan of the chest. Patient was given Gil & Gil by report and rapid/PCR Covid has been positive. Patient can be treated with Decadron, but use of Remdesivir would be contraindicated given renal function. Patient does have a history of smoking in the past, so COPD would be a consideration. Hold SPENCER-I. Clubbing is suggestive of senior care hypoxia, but may be congenital. Continue to wean oxygen as tolerated. If patient able to tolerate ambulation on 6 L or less, potential discharge. Will need to discuss with case management as patient is originally from the [facility] and plans on going back after discharge. 3. Advanced age/Poor historian Complicates care, management, recovery and prognosis. Request records from [facility]. Subjective Subjective Patient overall is doing well. Patient is thinking more clearly and faster to respond today than yesterday. Patient continues to have coughing episodes, but denies production. Patient denies any nausea or vomiting. Objective Data Objective Data Vital Signs: Vital Signs Temp Pulse Resp BP Pulse Ox 36.4 C L 84 17 117/84 H 94 10/30/20 05:03 10/30/20 05:18 10/30/20 05:03 10/30/20 05:03 10/30/20 05:03 Oxygen Flow Rate (L/min) 5 Oxygen Delivery Method Nasal Cannula Weight: 78.4 kg Body Mass Index (BMI) 27.6 Intake & Output: Intake and Output for Last 24 Hours 10/28/20 10/29/20 10/30/20 23:59 23:59 23:59 Intake Total 334.17 / 434.17 4488.75 / 4688.75 680 / 680 Output Total 1500 / 1850 950 / 950 Balance 334.17 / 134.17 2988.75 / 2838.75 -270 / -270 Medical Nutrition Assessment Dietitian: Nutrition Therapy Diagnosis Start: 10/29/20 11:27 Freq: Status: Active Protocol: Document 10/29/20 11:44 SLA (Rec: 10/29/20 11:44 SLA [id number]) Nutrition Malnutrition Evidence of Malnutrition Exists Yes Malnutrition (severe): Acute Illness/Injury Evidenced By Suboptimal Energy Intake ( Severe),Weight Loss (Severe) Clinical Problem Acute Disease or Injury Related Malnutrition Etiology related to acute illness Signs/Symptoms as evidenced by 5% wt loss x 1 mo and <50% po intake x 5 days prior to admission Status Active Problem Recommendation Dietitian Recommendations/Changes Will liberalize diet to Regular low sodium, d/t signs and symptoms of malnutrition, with mech soft consistency for ease of chewing - no teeth and dentures at home. Will provide 120 ml ensure enlive w/ meals Lab / Micro Data Result Diagrams: 10/30/20 05:49 10/30/20 05:49 Labs: Laboratory Results - last 24 hr 10/29/20 01:15: Urine Color Yellow, Urine Clarity Sl. Cloudy, Urine pH 5.0, Ur Specific [place] 1.030, Urine Protein 100 H, Urine Glucose (UA) Normal, Urine Ketones Negative, Urine Occult Blood 150 H, Urine Nitrite Negative, Urine Bilirubin Negative, Urine Urobilinogen Normal, Ur Leukocyte Esterase Negative, Urine RBC 0-5 SEEN, Urine WBC 0 SEEN, Ur Squamous Epith Cells 0-5 SEEN, Amorphous Sediment 1+, Urine Bacteria 1+, Urine Mucus 0 SEEN 10/29/20 01:15: Ur Random Sodium 28 10/29/20 09:25: COVID-19 (FROY) Detected 10/29/20 09:50: Procalcitonin 0.48 H, HIV 1&2 Antibody Non-Reactive 10/29/20 09:50: WBC 4.1 L, RBC 5.24, Hgb 14.5, Hct 43.2, MCV 82.4, MCH 27.7, MCHC 33.6, RDW Std Deviation 42.9, RDW Coeff of Alondra 14.4, Plt Count 161, MPV 10.8, Immature Gran % (Auto) 0.700, Neut % (Auto) 81.8 H, Lymph % (Auto) 11.7 L, [place] % (Auto) 5.6, Eos % (Auto) 0.0, Baso % (Auto) 0.2, Absolute Neuts (auto) 3.4, Absolute Lymphs (auto) 0.48 L, Nucleated RBC % 0, Diff Path Review July10/29/20 09:50: Sodium 133 L, Potassium 4.0, Chloride 102, Carbon Dioxide 19.0 L , Anion Gap 12, BUN 85 H, Creatinine 7.11 H, Estim Creat Clear Calc 8.85, Est GFR (MDRD) Af Amer 10 L, Est GFR (MDRD) Non-Af 8 L, BUN/Creatinine Ratio 12.0, Glucose 144 H, Calcium 8.2 L, Phosphorus 4.4, Total Bilirubin 0.40, AST 82 H, ALT 53, Alkaline Phosphatase 47, Total Protein 7.8, Albumin 2.7 L, Globulin 5.1 H, Albumin/Globulin Ratio 0.5 L, TSH 0.23 L 10/29/20 09:50: Total PSA 39.60 H 10/30/20 05:49: WBC 6.7, RBC 4.94, Hgb 13.4, Hct 40.6, MCV 82.2, MCH 27.1, MCHC 33.0, RDW Std Deviation 42.7, RDW Coeff of Alondra 14.4, Plt Count 166, MPV 11.3, Immature Gran % (Auto) 0.900, Neut % (Auto) 85.9 H, Lymph % (Auto) 6.7 L, [place] % (Auto) 6.4, Eos % (Auto) 0.0, Baso % (Auto) 0.1, Absolute Neuts (auto) 5.7, Absolute Lymphs (auto) 0.45 L, Nucleated RBC % 0 10/30/20 05:49: Sodium 135 L, Potassium 4.1, Chloride 109 H, Carbon Dioxide 14.0 L, Anion Gap 12, BUN 73 H, Creatinine 3.50 H, Estim Creat Clear Calc 17.98, Est GFR (MDRD) Af Amer 22 L, Est GFR (MDRD) Non-Af 19 L, BUN/Creatinine Ratio 20.9 H , Glucose 151 H, Calcium 8.0 L Micro: Microbiology 10/28/20 11:55 Mucosa - Nose SARS-CoV-2 Antigen (Rapid) - Final SARS-CoV-2 (COVID 19) 10/28/20 11:55 Mucosa - Nose Influenza Types A,B Direct FA (KENNY) - Final Radiography Diagnostic Testing: Radiology Impression Renal Ultrasound 10/28/20 16:36 IMPRESSION: Small left renal cysts. No hydronephrosis. Enlarged prostate small cystic structure recommend follow-up prostate laboratory values clinical exam. The prostate pushes into the base of the bladder. Cannot exclude chronic partial outlet obstruction. Electronically Signed: Safia Driver MD at 10:02 EDT Tel , Service support , Physical Exam Narrative Nasal cannula in place Const alert and no apparent distress General Appearance: cooperative and well developed HEENT normocephalic, head/scalp atraumatic and moist oral mucous membranes Eyes PERRL and EOMs intact bilaterally Neck full ROM and no lymphadenopathy Chest inspection of chest normal Resp normal respiratory effort and no use of accessory muscles Auscultation: diminished lung sounds; Negative for rales, rhonchi or wheezes Percussion: Negative for dullness Cardio regular rate, regular rhythm, S1 normal heart sound, S2 normal heart sound, no murmurs, no rub and no gallops GI normal to inspection, nondistended, normoactive bowel sounds no CVA tenderness Extremity Extremity Narrative: Right AKA General Extremity: clubbing; Negative for cyanosis or edema Skin Skin Narrative: Some ulcers of the lower extremities in various stages of healing, but none open or appearing infected General Skin Exam: dry skin Neuro CN's II-XII intact bilaterally, moves all extremities and no focal motor deficits Neuro Narrative: Much better mentation today compared to yesterday. Nonfocal exam Psych cooperative and affect normal Charges/Coding Visit Charges Inpatient E&M: 36229 Subs Hosp L2
[2020-10-30 08:56] LABS: Haptoglobin 527 mg/dL (32-363)
[2020-10-30] MEDS: Ceftriaxone 1 GM/50 ML BAG IV (09:24)
[2020-10-30] MEDS: 0.9% Saline Lock 10 ML Syringe IV (09:26)
[2020-10-30] MEDS: dexAMETHasone 4 MG/ML Vial IV (09:26)
--- NOTE | 2020-10-30 16:39 | PN.HOSP_ITS ---
Subjective Subjective The validity of patient's review of systems was compromised by his mental status and difficulty with short-term memory. He did not report any chest pain, pleuritic discomfort, shortness of breath, or cough on direct questioning. Objective Data Objective Data Vital Signs: Vital Signs Temp Pulse Resp BP Pulse Ox 98.6 F 85 22 H 110/77 97 10/30/20 15:10 10/30/20 15:10 10/30/20 15:10 10/30/20 15:10 10/30/20 15:10 Oxygen Flow Rate (L/min) 4 Oxygen Delivery Method Nasal Cannula Weight: 172 lb 13.478 oz Body Mass Index (BMI) 27.6 Intake & Output: Intake and Output for Last 24 Hours 10/28/20 10/29/20 10/30/20 23:59 23:59 23:59 Intake Total 334.17 / 434.17 4488.75 / 4688.75 3622.5 / 3622.5 Output Total 1500 / 1850 1450 / 1450 Balance 334.17 / 134.17 2988.75 / 2838.75 2172.5 / 2172.5 Medical Nutrition Assessment Dietitian: Nutrition Therapy Diagnosis Start: 10/29/20 11:27 Freq: Status: Active Protocol: Document 10/29/20 11:44 ANIL (Rec: 10/29/20 11:44 ANIL [id number]) Nutrition Malnutrition Evidence of Malnutrition Exists Yes Malnutrition (severe): Acute Illness/Injury Evidenced By Suboptimal Energy Intake ( Severe),Weight Loss (Severe) Clinical Problem Acute Disease or Injury Related Malnutrition Etiology related to acute illness Signs/Symptoms as evidenced by 5% wt loss x 1 mo and <50% po intake x 5 days prior to admission Status Active Problem Recommendation Dietitian Recommendations/Changes Will liberalize diet to Regular low sodium, d/t signs and symptoms of malnutrition, with mech soft consistency for ease of chewing - no teeth and dentures at home. Will provide 120 ml ensure enlive w/ meals Lab / Micro Data Result Diagrams: 10/30/20 05:49 10/30/20 05:49 Labs: Laboratory Results - last 24 hr 10/30/20 05:49: WBC 6.7, RBC 4.94, Hgb 13.4, Hct 40.6, MCV 82.2, MCH 27.1, MCHC 33.0, RDW Std Deviation 42.7, RDW Coeff of Alondra 14.4, Plt Count 166, MPV 11.3, Immature Gran % (Auto) 0.900, Neut % (Auto) 85.9 H, Lymph % (Auto) 6.7 L, [place] % (Auto) 6.4, Eos % (Auto) 0.0, Baso % (Auto) 0.1, Absolute Neuts (auto) 5.7, Absolute Lymphs (auto) 0.45 L, Nucleated RBC % 0 10/30/20 05:49: Sodium 135 L, Potassium 4.1, Chloride 109 H, Carbon Dioxide 14.0 L, Anion Gap 12, BUN 73 H, Creatinine 3.50 H, Estim Creat Clear Calc 17.98, Est GFR (MDRD) Af Amer 22 L, Est GFR (MDRD) Non-Af 19 L, BUN/Creatinine Ratio 20.9 H , Glucose 151 H, Calcium 8.0 L Micro: Microbiology 10/28/20 13:45 Blood Culture (Wb) - Anticubital Left Blood Culture - Preliminary No growth in 48 hours. 10/28/20 11:55 Mucosa - Nose SARS-CoV-2 Antigen (Rapid) - Final SARS-CoV-2 (COVID 19) 10/28/20 11:55 Mucosa - Nose Influenza Types A,B Direct FA (KENNY) - Final Physical Exam Narrative Lying at a 30 degree although horizontal with tachypnea but no acute distress. Decreased breath sounds bilaterally with scattered rhonchi but no rales or wheezing. Distant, regular heart sounds with no murmurs or gallops. Abdomen was soft and nontender with no grimacing to palpation. He had a right BKA with some tenderness at the stump but no erythema. He had 2+ pitting edema in the pretibial area on the left with chronic venous stasis changes. He had scar deformity on the distal thigh and pretibial area on the left. The patient's left leg is hyperextended at the knee with no ability to flex at the knee. He was alert and interactive but confused about his location and was unaware of time. He had a flat affect with a depressed mood. Assessment & Plan Assessment/Plan (1) COVID-19: (2) Acute renal failure (ARF): PLAN: 70-year-old with hypoxemia secondary to Covid pneumonia complicated by acute renal failure in the setting of chronic hypertension, overweight, tobacco use disorder, and acute transaminitis, markedly elevated PSA (probable prostate cancer), and an acute metabolic encephalopathy with severe protein calorie malnutrition. The patient will continue with supplemental oxygen for his Covid pneumonia and hypoxemia. He is receiving steroids for his Covid pneumonia but is not a candidate for remdesivir with his kidney function. He will need home oxygen assessment 24 hours prior to discharge to consider home oxygen therapy. His creatinine is down to 3.5 and his BUN is down to 73 with supportive care-we will follow his BMP daily. Given his serum bicarbonate of 14 and chloride of 109, I will change his IV fluids given his hyperchloremic metabolic acidosis. I will start him on half-normal saline with 50 mEq of bicarbonate and monitor his BMP for his serum CO2 level. Nephrology will continue to follow-he had no evidence of hydronephrosis but he does have proteinuria. I will repeat his AST on the morning of 10/31/2020 with his elevated level of 82. He will need further evaluation of his PSA in the outpatient setting-I will order a percent free PSA. He will continue with the empiric coverage of Zithromax and ceftriaxone while waiting for culture results. His confusion persists and may relate to uremic symptoms from his acute kidney injury-he may need a CT scan of the head. Nutrition did recommend meal alterations with dietary supplements with his severe protein calorie malnutrition. He has heparin ordered for DVT prophylaxis. The patient is a full code. I did speak with nursing about trying to track down a family member. She had spoken to the patient's brother. The patient was talking about working at the [employer] [facility]. Apparently, that has been verified. Nursing will try to provide me a phone number for a discussion with the daughter. The patient appears to have prostate cancer with his acute kidney injury. He is unable to participate in any part of the discussion given his metabolic encephalopathy. Social work will need to assist with placement as the patient will need isolation for his Covid pneumonia prior to returning home. Charges/Coding Visit Charges Inpatient E&M: 95049 Subs Hosp L3
[2020-10-31] VITALS (13 sets, daily range): BP systolic 102–146; BP diastolic 68–96; PULSE 77–99; RESP 20–26; TEMP 36.1–36.6; O2SAT 91–95
[2020-10-31] MEDS: Acetaminophen 325 MG Tablet 650 MG PO ×3 (02:29→22:45)
--- NOTE | 2020-10-31 03:06 | CPS ---
decreased O2 to 5 lpm
[2020-10-31] MEDS: Heparin Injection (Vial) 5,000 UNIT/ML VIAL 5000 UNIT SC ×3 (05:23→22:45)
[2020-10-31 07:05] LABS: Absolute Lymphocyte Count 0.58 X10^3/uL (0.83-4.51); Absolute Neutrophil Count 6.1 X10^3/uL (2.0-7.7); Basophil# 0.01 X10^3/uL; Basophil% 0.1 % (0-1); Hematocrit 41.6 % (40-54); Hemoglobin 13.4 g/dL (13.0-16.5); Lymphocyte # 0.58 X10^3/ul (0.83-4.51); Lymphocyte % 8.1 % (19-41); Mean Corp Hgb Conc 32.2 g/dL (32-36); Mean Corpuscular Hgb 27.6 pg (27.0-32.0); Mean Corpuscular Volume 85.8 fL (80-94); Mean Platelet Vol. 10.4 fl (6.2-12.0); Monocyte# 0.37 X10^3/uL; Monocyte% 5.2 % (0-10); NRBC Flagged by Analyzer 0 % (0-5); Neutrophil # 6.11 X10^3/uL (2.7-7.7); Neutrophil % 85.8 % (47-70); POSITIVE DIFFERENTIAL YES; Platelet Count 160 K/mm3 (150-450); RBC Distribution Width CV 14.8 % (11.6-14.6); RBC Distribution Width SD 47.1 fl (35.1-43.9); Red Blood Count 4.85 M/mm3 (4.6-6.2); White Blood Count 7.1 K/mm3 (4.4-11.0)
[2020-10-31 07:11] LABS: Differential Indicated SCAN CRITERIA MET
[2020-10-31 07:37] LABS: AST(SGOT) 75 U/L (15-37); Anion Gap 9 (5-15); BUN 53 mg/dL (7-18); Calcium,Total 8.2 mg/dL (8.5-10.1); Chloride 112 mmol/L (98-107); Creatinine, Serum 1.83 mg/dL (0.70-1.30); EST Glomerular Filtration Rate 39 mL/min (>60); Est Glom Filt Rate - Afr Amer 47 mL/min (>60); Estimated Creatinine Clearance 34.38 ml/min; Glucose 109 mg/dL (74-106); LDH 588 U/L (87-241); Potassium 4.2 mmol/L (3.5-5.1); Sodium Level 140 mmol/L (136-145)
--- NOTE | 2020-10-31 07:39 | PN.HOSP_ITS ---
Subjective Subjective Patient is still short of breath, conversational dyspnea although cough has improved. Discussed with ID Objective Data Objective Data Vital Signs: Vital Signs Temp Pulse Resp BP Pulse Ox 97.8 F 88 20 H 124/76 H 93 10/31/20 05:25 10/31/20 05:25 10/31/20 05:25 10/31/20 05:25 10/31/20 05:25 Oxygen Flow Rate (L/min) 5 Oxygen Delivery Method Nasal Cannula Weight: 174 lb 9.698 oz Body Mass Index (BMI) 27.6 Intake & Output: Intake and Output for Last 24 Hours 10/29/20 10/30/20 10/31/20 23:59 23:59 23:59 Intake Total 4488.75 / 4688.75 4202.5 / 4602.5 1450 / 1450 Output Total 1500 / 1850 1750 / 2000 450 / 450 Balance 2988.75 / 2838.75 2452.5 / 2602.5 1000 / 1000 Medical Nutrition Assessment Dietitian: Nutrition Therapy Diagnosis Start: 10/29/20 11:27 Freq: Status: Active Protocol: Document 10/29/20 11:44 ANIL (Rec: 10/29/20 11:44 ANIL [id number]) Nutrition Malnutrition Evidence of Malnutrition Exists Yes Malnutrition (severe): Acute Illness/Injury Evidenced By Suboptimal Energy Intake ( Severe),Weight Loss (Severe) Clinical Problem Acute Disease or Injury Related Malnutrition Etiology related to acute illness Signs/Symptoms as evidenced by 5% wt loss x 1 mo and <50% po intake x 5 days prior to admission Status Active Problem Recommendation Dietitian Recommendations/Changes Will liberalize diet to Regular low sodium, d/t signs and symptoms of malnutrition, with mech soft consistency for ease of chewing - no teeth and dentures at home. Will provide 120 ml ensure enlive w/ meals Lab / Micro Data Result Diagrams: 10/31/20 06:44 10/31/20 06:44 Labs: Laboratory Results - last 24 hr 10/28/20 21:40: Haptoglobin 527 H 10/31/20 06:44: WBC 7.1, RBC 4.85, Hgb 13.4, Hct 41.6, MCV 85.8, MCH 27.6, MCHC 32.2, RDW Std Deviation 47.1 H, RDW Coeff of Alondra 14.8 H, Plt Count 160, MPV 10.4, Immature Gran % (Auto) 0.800, Neut % (Auto) 85.8 H, Lymph % (Auto) 8.1 L, [place] % (Auto) 5.2, Eos % (Auto) 0.0, Baso % (Auto) 0.1, Absolute Neuts (auto) 6.1, Absolute Lymphs (auto) 0.58 L, Nucleated RBC % 0 10/31/20 06:44: Sodium 140, Potassium 4.2, Chloride 112 H, Carbon Dioxide 19.0 L , Anion Gap 9, BUN 53 H, Creatinine 1.83 H, Estim Creat Clear Calc 34.38, Est GFR (MDRD) Af Amer 47 L, Est GFR (MDRD) Non-Af 39 L, BUN/Creatinine Ratio 29.0 H , Glucose 109 H, Calcium 8.2 L, AST 75 H, Lactate Dehydrogenase 588 H Micro: Microbiology 10/28/20 13:45 Blood Culture (Wb) - Anticubital Left Blood Culture - Preliminary No growth in 48 hours. 10/28/20 11:55 Mucosa - Nose SARS-CoV-2 Antigen (Rapid) - Final SARS-CoV-2 (COVID 19) 10/28/20 11:55 Mucosa - Nose Influenza Types A,B Direct FA (KENNY) - Final Physical Exam Narrative General: Alert, Oriented x3, Cooperative HEENT: Atraumatic, PERRLA, EOMI, Normocephalic Oral: No Gingival or Mucosal Lesions/ Ulcerations Neck: Supple, No JVD, Negative Carotid Bruits Lungs: Air entry diminished in bilateral lung bases. Bilateral expiratory crepitations/rhonchi. On 4 to 5 L of oxygen Cardiovascular: Regular rate, Regular Rhythm, Normal S1, Normal S2, No murmurs Abdomen: Bowel Sounds Present, Soft, Non Tender, Non-Distended : No renal angle tenderness. No suprapubic tenderness. Extremities: No edema, Capillary Refill Less than 3 Seconds Skin: 2+ edema of left leg. Musculoskeletal: Right BKA. Left leg with chronic venous stasis/venous hypertensive changes. No Tenderness to Palpation of Joints or Extremities Neurological: Cranial nerves II-XII grossly intact, DTR 2+/4 and Symmetrical, Neuro grossly intact Psych/Mental Status: Normal Affect, Appropriate. Assessment & Plan Assessment/Plan (1) Pneumonia due to COVID-19 virus: PLAN: This 70-year-old gentleman admitted with acute hypoxic respiratory failure secondary to COVID-19 pneumonia and acute kidney injury. 1. Acute hypoxic respiratory failure secondary to COVID-19 pneumonia: On Decadron. Seen by ID and remdesivir is started as WOJCIECH improved. Ceftriaxone and Zithromax discontinued. Quarantine for 20 days from the onset of the sym ptoms. It had Gil & Gil vaccination. 2. Acute kidney injury with increased anion gap metabolic acidosis: Being followed by storage facility rental clerk. Most likely from prerenal. Creatinine improved from 10.0- 1.8. No need for DIRECT SUPPORT SPECIALIST. Positive fluid balance of 2.6 L. Discontinue IV fluid 3. VT prophylaxis on heparin subcu. Charges/Coding Visit Charges Inpatient E&M: 26336 Subs Hosp L2
--- NOTE | 2020-10-31 08:36 | PN.RENAL_ITS ---
Subjective Subjective No acute events Objective Data Objective Data Vital Signs: Vital Signs Temp Pulse Resp BP Pulse Ox 97.8 F 88 20 H 124/76 H 93 10/31/20 05:25 10/31/20 05:25 10/31/20 05:25 10/31/20 05:25 10/31/20 05:25 Oxygen Flow Rate (L/min) 5 Oxygen Delivery Method Nasal Cannula Weight: 79.2 kg Body Mass Index (BMI) 27.6 Intake & Output: Intake and Output for Last 24 Hours 10/29/20 10/30/20 10/31/20 23:59 23:59 23:59 Intake Total 4488.75 / 4688.75 4202.5 / 4602.5 1450 / 1450 Output Total 1500 / 1850 1750 / 2000 450 / 450 Balance 2988.75 / 2838.75 2452.5 / 2602.5 1000 / 1000 Medical Nutrition Assessment Dietitian: Nutrition Therapy Diagnosis Start: 10/29/20 11:27 Freq: Status: Active Protocol: Document 10/29/20 11:44 ANIL (Rec: 10/29/20 11:44 ANIL [id number]) Nutrition Malnutrition Evidence of Malnutrition Exists Yes Malnutrition (severe): Acute Illness/Injury Evidenced By Suboptimal Energy Intake ( Severe),Weight Loss (Severe) Clinical Problem Acute Disease or Injury Related Malnutrition Etiology related to acute illness Signs/Symptoms as evidenced by 5% wt loss x 1 mo and <50% po intake x 5 days prior to admission Status Active Problem Recommendation Dietitian Recommendations/Changes Will liberalize diet to Regular low sodium, d/t signs and symptoms of malnutrition, with mech soft consistency for ease of chewing - no teeth and dentures at home. Will provide 120 ml ensure enlive w/ meals Lab / Micro Data Result Diagrams: 10/31/20 06:44 10/31/20 06:44 Labs: Laboratory Results - last 24 hr 10/28/20 21:40: Haptoglobin 527 H 10/31/20 06:44: WBC 7.1, RBC 4.85, Hgb 13.4, Hct 41.6, MCV 85.8, MCH 27.6, MCHC 32.2, RDW Std Deviation 47.1 H, RDW Coeff of Alondra 14.8 H, Plt Count 160, MPV 10.4, Immature Gran % (Auto) 0.800, Neut % (Auto) 85.8 H, Lymph % (Auto) 8.1 L, [place] % (Auto) 5.2, Eos % (Auto) 0.0, Baso % (Auto) 0.1, Absolute Neuts (auto) 6 .1, Absolute Lymphs (auto) 0.58 L, Nucleated RBC % 0 10/31/20 06:44: Sodium 140, Potassium 4.2, Chloride 112 H, Carbon Dioxide 19.0 L , Anion Gap 9, BUN 53 H, Creatinine 1.83 H, Estim Creat Clear Calc 34.38, Est GFR (MDRD) Af Amer 47 L, Est GFR (MDRD) Non-Af 39 L, BUN/Creatinine Ratio 29.0 H , Glucose 109 H, Calcium 8.2 L, AST 75 H, Lactate Dehydrogenase 588 H Micro: Microbiology 10/28/20 13:45 Blood Culture (Wb) - Anticubital Left Blood Culture - Preliminary No growth in 48 hours. 10/28/20 11:55 Mucosa - Nose SARS-CoV-2 Antigen (Rapid) - Final SARS-CoV-2 (COVID 19) 10/28/20 11:55 Mucosa - Nose Influenza Types A,B Direct FA (KENNY) - Final Physical Exam Narrative Patient was not seen or examined due to his active COVID-19 infection. Patient remains on nasal cannula 5 to 6 L daily. I reviewed vital signs and lab Assessment & Plan Assessment/Plan (1) Acute kidney injury: PLAN: Acute kidney injury is likely from prerenal related to depleted intervascular volume. Kidney function is improving with intravascular volume expansion. Creatinine peaked at 10 2 days ago. Now down to 1.8. Patient did not need renal placement therapy. Might start IV fluids the patient eating. (2) Metabolic acidosis: PLAN: This is was likely to do WOJCIECH. Improving with better kidney function. Check serum bicarb level in the morning We will continue to follow. Call if any question
[2020-10-31] MEDS: dexAMETHasone 4 MG/ML Vial IV ×2 (09:30→09:36)
[2020-10-31] MEDS: 0.9% Saline Lock 10 ML Syringe IV ×2 (09:30→09:36)
[2020-10-31] MEDS: Ceftriaxone 1 GM/50 ML BAG IV (11:10)
--- NOTE | 2020-10-31 11:56 | PN.CC_ITS ---
Assessment & Plan Assessment/Plan (1) COVID-19: PLAN: RECOMMENDATIONS: 1. Continue current supportive measures including supplemental oxygen to maintain saturations at or above 90%. 2. Continue Decadron to complete 10-day treatment course. 3. Encourage incentive spirometer use and mobilize patient as tolerated. 4. Consider discontinuation of fluids, given overall net positive volume s tatus. IMPRESSIONS: 1. Acute hypoxemic respiratory failure secondary to COVID-19 pneumonia The patient is improving from an oxygenation standpoint. He was not a candidate for remdesivir given his underlying renal insufficiency. Plan to continue Decadron to complete 10-day treatment course. Continue to wean supplemental oxygen to maintain saturations at or above 90%. Encourage incentive spirometer use and mobilize patient as tolerated. Consider discontinuation of supplemental IV fluids, given overall net positive volume status. 2. Acute kidney injury Creatinine has improved with volume expansion. Etiology for WOJCIECH is likely prerenal in nature. Nephrology is currently following. I would, however, recommend discontinuation of fluids given overall net positive volume status. This note was generated with [employer] dictation software. It may contain incorrect words, spelling, and punctuation that were not noted in checking the note before signing. Subjective Subjective The patient was seen and examined at the bedside this morning. Events from the last 24 hours have been reviewed. The patient is currently afebrile, hemodynami yazan stable and maintaining appropriate oxygen saturations on 5 L/min via nasal cannula. The patient is currently documented to be overall net +7.3 L for the hospitalization. Creatinine has improved to 1.83 this morning. Objective Data Objective Data The patient's most recent lab work, culture data and imaging studies have all been personally reviewed. Rapid coronavirus antigen testing was positive on October 28. Blood cultures have not demonstrated any growth to date. Vital Signs: Vital Signs Temp Pulse Resp BP Pulse Ox 97.2 F L 90 24 H 127/81 H 94 10/31/20 09:25 10/31/20 10:00 10/31/20 11:00 10/31/20 09:25 10/31/20 11:00 Oxygen Flow Rate (L/min) 5 Oxygen Delivery Method Nasal Cannula Weight: 79.2 kg Body Mass Index (BMI) 27.6 Intake & Output: Intake and Output for Last 24 Hours 10/29/20 10/30/20 10/31/20 23:59 23:59 23:59 Intake Total 4488.75 / 4688.75 4202.5 / 4602.5 2181.25 / 2181.25 Output Total 1500 / 1850 1750 / 2000 650 / 650 Balance 2988.75 / 2838.75 2452.5 / 2602.5 1531.25 / 1531.25 Medical Nutrition Assessment Dietitian: Nutrition Therapy Diagnosis Start: 10/29/20 11:27 Freq: Status: Active Protocol: Document 10/29/20 11:44 SLA (Rec: 10/29/20 11:44 SLA [id number]) Nutrition Malnutrition Evidence of Malnutrition Exists Yes Malnutrition (severe): Acute Illness/Injury Evidenced By Suboptimal Energy Intake ( Severe),Weight Loss (Severe) Clinical Problem Acute Disease or Injury Related Malnutrition Etiology related to acute illness Signs/Symptoms as evidenced by 5% wt loss x 1 mo and <50% po intake x 5 days prior to admission Status Active Problem Recommendation Dietitian Recommendations/Changes Will liberalize diet to Regular low sodium, d/t signs and symptoms of malnutrition, with mech soft consistency for ease of chewing - no teeth and dentures at home. Will provide 120 ml ensure enlive w/ meals Lab / Micro Data Attestation: I reviewed the patient's lab results. Result Diagrams: 10/31/20 06:44 10/31/20 06:44 Labs: Laboratory Results - last 24 hr 10/31/20 06:44: WBC 7.1, RBC 4.85, Hgb 13.4, Hct 41.6, MCV 85.8, MCH 27.6, MCHC 32.2, RDW Std Deviation 47.1 H, RDW Coeff of Alondra 14.8 H, Plt Count 160, MPV 10.4, Immature Gran % (Auto) 0.800, Neut % (Auto) 85.8 H, Lymph % (Auto) 8.1 L, [place] % (Auto) 5.2, Eos % (Auto) 0.0, Baso % (Auto) 0.1, Absolute Neuts (auto) 6.1, Absolute Lymphs (auto) 0.58 L, Nucleated RBC % 0 10/31/20 06:44: Sodium 140, Potassium 4.2, Chloride 112 H, Carbon Dioxide 19.0 L , Anion Gap 9, BUN 53 H, Creatinine 1.83 H, Estim Creat Clear Calc 34.38, Est GFR (MDRD) Af Amer 47 L, Est GFR (MDRD) Non-Af 39 L, BUN/Creatinine Ratio 29.0 H , Glucose 109 H, Calcium 8.2 L, AST 75 H, Lactate Dehydrogenase 588 H Micro: Microbiology 10/28/20 13:45 Blood Culture (Wb) - Anticubital Left Blood Culture - P reliminary No growth in 48 hours. 10/28/20 11:55 Mucosa - Nose SARS-CoV-2 Antigen (Rapid) - Final SARS-CoV-2 (COVID 19) 10/28/20 11:55 Mucosa - Nose Influenza Types A,B Direct FA (KENNY) - Final Physical Exam Const alert and no apparent distress General Appearance: cooperative HEENT normocephalic and head/scalp atraumatic Eyes PERRL, EOMs intact bilaterally and conjunctivae normal Neck supple General: trachea midline Resp normal respiratory effort Auscultation: diminished lung sounds; Negative for rales, rhonchi or wheezes Cardio regular rate and regular rhythm GI normal to inspection, nondistended, normoactive bowel sounds Extremity General Extremity: amputation; Negative for clubbing or edema Neuro CN's II-XII intact bilaterally and no focal motor deficits Psych cooperative and affect normal Charges/Coding Visit Charges Inpatient E&M: 79086 Subs Hosp L2
--- NOTE | 2020-10-31 14:20 | CON.PCM.ID_ITS ---
Assessment & Plan Assessment/Plan (1) Acute kidney injury: (2) COVID-19: PLAN: Sx started 10/24/20. Has been vaccinated. WOJCIECH improved. On dex for 10 day course, will start remdesivir and stop azithro/ceftriaxone. Quarantine for 20 days from start of symptoms. Will follow, thank you. (3) Hypoxemia: HPI Consult Data Date of Consult: 10/31/20 HPI Narrative HPI Narrative: DALLAS CRABTREE, is a 70 M who presented with sx starting 10/24, c/o fever, chills, cough, diarrhea, body aches. Has been vaccinated for covid. No sick contacts, lives alone, does ride the bus. Came to ED, found to have Cr of 10, admitted on dex, O2. Feeling better, Cr improved. Full ROS performed and neg except as noted above. [facility] Medical History Above knee amputation of right lower extremity Hypertension Home Medications lisinopril 20 mg PO DAILY 10/28/20 [History Last Taken Unknown] Allergy/AdvReac Type Severity Reaction Status Date / Time No Known Allergies Allergy Verified 10/28/20 10:38 Social History Smoking Status: Current every day smoker tobacco type: cigarettes Physical Exam Const alert, oriented x3 and no apparent distress General Appearance: cooperative Exam Limitations: no limitations HEENT normocephalic and head/scalp atraumatic Eyes PERRL and EOMs intact bilaterally Neck supple and No nodes Resp Auscultation: diminished lung sounds Cardio regular rate and regular rhythm GI normal to inspection, nondistended, normoactive bowel sounds Extremity no clubbing, cyanosis or edema Extremity Narrative: RUE AKA Skin no rashes or lesions noted Neuro CN's II-XII intact bilaterally Medical Records Data Medical Nutrition Assessment Dietitian: Nutrition Therapy Diagnosis Start: 10/29/20 11:27 Freq: Status: Active Protocol: Document 10/29/20 11:44 ANIL (Rec: 10/29/20 11:44 ANIL [id number]) Nutrition Malnutrition Evidence of Malnutrition Exists Yes Malnutrition (severe): Acute Illness/Injury Evidenced By Suboptimal Energy Intake ( Severe),Weight Loss (Severe) Clinical Problem Acute Disease or Injury Related Malnutrition Etiology related to acute illness Signs/Symptoms as evidenced by 5% wt loss x 1 mo and <50% po intake x 5 days prior to admission Status Active Problem Recommendation Dietitian Recommendations/Changes Will liberalize diet to Regular low sodium, d/t signs and symptoms of malnutrition, with mech soft consistency for ease of chewing - no teeth and dentures at home. Will provide 120 ml ensure enlive w/ meals Lab / Micro Data Result Diagrams: 10/31/20 06:44 10/31/20 06:44 Labs: Laboratory Results - last 24 hr 10/31/20 06:44: WBC 7.1, RBC 4.85, Hgb 13.4, Hct 41.6, MCV 85.8, MCH 27.6, MCHC 32.2, RDW Std Deviation 47.1 H, RDW Coeff of Alondra 14.8 H, Plt Count 160, MPV 10.4, Immature Gran % (Auto) 0.800, Neut % (Auto) 85.8 H, Lymph % (Auto) 8.1 L, [place] % (Auto) 5.2, Eos % (Auto) 0.0, Baso % (Auto) 0.1, Absolute Neuts (auto) 6.1, Absolute Lymphs (auto) 0.58 L, Nucleated RBC % 0 10/31/20 06:44: Sodium 140, Potassium 4.2, Chloride 112 H, Carbon Dioxide 19.0 L , Anion Gap 9, BUN 53 H, Creatinine 1.83 H, Estim Creat Clear Calc 34.38, Est GFR (MDRD) Af Amer 47 L, Est GFR (MDRD) Non-Af 39 L, BUN/Creatinine Ratio 29.0 H , Glucose 109 H, Calcium 8.2 L, AST 75 H, Lactate Dehydrogenase 588 H Micro: Microbiology 10/28/20 13:45 Blood Culture (Wb) - Anticubital Left Blood Culture - Preliminary No growth in 48 hours.
[2020-10-31 14:32] LABS: Pathologist Review Reviewed
[2020-11-01] VITALS (14 sets, daily range): BP systolic 136–145; BP diastolic 92–100; PULSE 71–97; RESP 20–32; TEMP 35.4–36.6; O2SAT 50–95
[2020-11-01] MEDS: Heparin Injection (Vial) 5,000 UNIT/ML VIAL 5000 UNIT SC ×3 (06:39→20:51)
[2020-11-01] MEDS: 0.9% Saline Lock 10 ML Syringe IV ×2 (06:42→12:00)
[2020-11-01 06:57] LABS: Hematocrit 40.4 % (40-54); Hemoglobin 13.8 g/dL (13.0-16.5); Mean Corp Hgb Conc 34.2 g/dL (32-36); Mean Corpuscular Hgb 27.8 pg (27.0-32.0); Mean Corpuscular Volume 81.5 fL (80-94); Mean Platelet Vol. 10.6 fl (6.2-12.0); Platelet Count 208 K/mm3 (150-450); RBC Distribution Width CV 14.5 % (11.6-14.6); RBC Distribution Width SD 42.5 fl (35.1-43.9); Red Blood Count 4.96 M/mm3 (4.6-6.2)
--- NOTE | 2020-11-01 07:25 | PN.RENAL_ITS ---
Subjective Subjective no acute events Objective Data Objective Data Vital Signs: Vital Signs Temp Pulse Resp BP Pulse Ox 96.6 F L 71 20 H 140/100 H 50 11/01/20 02:46 11/01/20 03:59 11/01/20 02:52 11/01/20 02:46 11/01/20 02:52 Oxygen Flow Rate (L/min) 94 Oxygen Delivery Method Venturi Mask Weight: 79.6 kg Body Mass Index (BMI) 27.6 Intake & Output: Intake and Output for Last 24 Hours 10/30/20 10/31/20 11/01/20 23:59 23:59 23:59 Intake Total 4202.5 / 4602.5 2481.25 / 2481.25 150 / 150 Output Total 1750 / 2000 1150 / 1150 550 / 550 Balance 2452.5 / 2602.5 1331.25 / 1331.25 -400 / -400 Medical Nutrition Assessment Dietitian: Nutrition Therapy Diagnosis Start: 10/29/20 11:27 Freq: Status: Active Protocol: Document 10/29/20 11:44 ANIL (Rec: 10/29/20 11:44 ANIL [id number]) Nutrition Malnutrition Evidence of Malnutrition Exists Yes Malnutrition (severe): Acute Illness/Injury Evidenced By Suboptimal Energy Intake ( Severe),Weight Loss (Severe) Clinical Problem Acute Disease or Injury Related Malnutrition Etiology related to acute illness Signs/Symptoms as evidenced by 5% wt loss x 1 mo and <50% po intake x 5 days prior to admission Status Active Problem Recommendation Dietitian Recommendations/Changes Will liberalize diet to Regular low sodium, d/t signs and symptoms of malnutrition, with mech soft consistency for ease of chewing - no teeth and dentures at home. Will provide 120 ml ensure enlive w/ meals Lab / Micro Data Result Diagrams: 11/01/20 06:38 10/31/20 06:44 Labs: Laboratory Results - last 24 hr 10/29/20 09:50: Diff Path Review Reviewed 10/31/20 06:44: Sodium 140, Potassium 4.2, Chloride 112 H, Carbon Dioxide 19.0 L , Anion Gap 9, BUN 53 H, Creatinine 1.83 H, Estim Creat Clear Calc 34.38, Est GFR (MDRD) Af Amer 47 L, Est GFR (MDRD) Non-Af 39 L, BUN/Creatinine Ratio 29.0 H , Glucose 109 H, Calcium 8.2 L, AST 75 H, Lactate Dehydrogenase 588 H 11/01/20 06:38: WBC 8.0, RBC 4.96, Hgb 13.8, Hct 40.4, MCV 81.5 D, MCH 27.8, MCHC 34.2 D, RDW Std Deviation 42.5, RDW Coeff of Alondra 14.5, Plt Count 208, MPV 10.6 Micro: Microbiology 10/28/20 13:45 Blood Culture (Wb) - Anticubital Left Blood Culture - Preliminary No growth in 48 hours. 10/28/20 11:55 Mucosa - Nose SARS-CoV-2 Antigen (Rapid) - Final SARS-CoV-2 (COVID 19) 10/28/20 11:55 Mucosa - Nose Influenza Types A,B Direct FA (KENNY) - Final Physical Exam Narrative Patient was not seen or examined due to his active COVID-19 infection. Patient remains on nasal cannula 5 to 6 L daily. I reviewed vital signs and lab Assessment & Plan Assessment/Plan (1) Acute kidney injury: PLAN: Acute kidney injury is likely from prerenal related to depleted intervascular volume. Kidney function is improving with intravascular volume expansion. Creatinine peaked at 10 2 days ago. Now down to 1.8 as per yesterday lab BMP today is pending. Patient did not need renal placement therapy. Check RFP in am. (2) Metabolic acidosis: PLAN: This is was likely to do WOJCIECH. Improving with better kidney function. Check serum bicarb level in the morning We will continue to follow. Call if any question
[2020-11-01 07:30] LABS: ALB/GLOB Ratio 0.6 RATIO (0.9-2.4); AST(SGOT) 49 U/L (15-37); Alanine Aminotransfer ALT/SGPT 63 U/L (16-61); Albumin, Serum 2.4 g/dL (3.2-5.0); Alkaline Phosphatase 62 U/L (45-117); Anion Gap 10 (5-15); BUN 32 mg/dL (7-18); BUN/Creat Ratio 24.8 RATIO (10-20); Calcium,Total 8.2 mg/dL (8.5-10.1); Chloride 109 mmol/L (98-107); Creatinine, Serum 1.29 mg/dL (0.70-1.30); EST Glomerular Filtration Rate 59 mL/min (>60); Est Glom Filt Rate - Afr Amer 71 mL/min (>60); Estimated Creatinine Clearance 48.77 ml/min; Globulin 4.1 g/dL (2.2-4.2); Glucose 103 mg/dL (74-106); Potassium 4.4 mmol/L (3.5-5.1); Protein, Total 6.5 g/dL (6.4-8.2); Sodium Level 138 mmol/L (136-145)
--- NOTE | 2020-11-01 08:13 | PCM.PN.INT ---
Assessment & Plan Assessment/Plan (1) COVID-19: PLAN: RECOMMENDATIONS: 1. Continue current supportive measures including supplemental oxygen to maintain saturations at or above 90%. 2. Continue Decadron to complete 10-day treatment course. 3. Continue remdesivir per ID recommendations. 4. Given overall net positive volume status, will attempt gentle diuresis today. Check BNP. 5. Encourage incentive spirometer use and mobilize patient as tolerated. IMPRESSIONS: 1. Acute hypoxemic respiratory failure secondary to COVID-19 pneumonia Plan to continue current supportive measures including supplemental oxygen to maintain saturations at or above 90%. Continue Decadron to complete 10-day treatment course. Given improvement in renal status, the patient was initiated on remdesivir, which will be continued per ID recommendations. Encourage incentive spirometer use and mobilize patient as tolerated. Given that the patient is overall net positive from a volume status perspective, will initiate gentle diuresis. 2. Acute kidney injury Resolved. Creatinine has improved with volume expansion. Etiology for WOJCIECH is likely prerenal in nature. Nephrology is currently following. This note was generated with [employer] dictation software. It may contain incorrect words, spelling, and punctuation that were not noted in checking the note before signing. Subjective Subjective The patient was seen and examined at the bedside this morning. Events from the last 24 hours have been reviewed. The patient is currently afebrile, hemodynamically stable and maintaining appropriate oxygen saturations on a 50% Ventimask. The patient is currently documented to be overall net +6.7 L for the hospital admission. Creatinine has normalized this morning at 1.29. The patient remains on remdesivir and Decadron. Objective Data Objective Data The patient's most recent lab work, culture data and imaging studies have all been personally reviewed. Rapid coronavirus antigen testing was positive on October 28. Blood cultures have not demonstrated any growth to date. Vital Signs: Vital Signs Temp Pulse Resp BP Pulse Ox 96.6 F L 71 20 H 140/100 H 94 11/01/20 02:46 11/01/20 03:59 11/01/20 02:52 11/01/20 02:46 11/01/20 07:27 Oxygen Flow Rate (L/min) 94 Oxygen Delivery Method Venturi Mask Weight: 79.6 kg Body Mass Index (BMI) 27.6 Intake & Output: Intake and Output for Last 24 Hours 10/30/20 10/31/20 11/01/20 23:59 23:59 23:59 Intake Total 4202.5 / 4602.5 2481.25 / 2481.25 150 / 150 Output Total 175 / 1999 1150 / 1150 550 / 550 Balance 2452.5 / 2602.5 1331.25 / 1331.25 -400 / -400 Medical Nutrition Assessment Dietitian: Nutrition Therapy Diagnosis Start: 10/29/20 11:27 Freq: Status: Active Protocol: Document 10/29/20 11:44 SLA (Rec: 10/29/20 11:44 SLA [id number]) Nutrition Malnutrition Evidence of Malnutrition Exists Yes Malnutrition (severe): Acute Illness/Injury Evidenced By Suboptimal Energy Intake ( Severe),Weight Loss (Severe) Clinical Problem Acute Disease or Injury Related Malnutrition Etiology related to acute illness Signs/Symptoms as evidenced by 5% wt loss x 1 mo and <50% po intake x 5 days prior to admission Status Active Problem Recommendation Dietitian Recommendations/Changes Will liberalize diet to Regular low sodium, d/t signs and symptoms of malnutrition, with mech soft consistency for ease of chewing - no teeth and dentures at home. Will provide 120 ml ensure enlive w/ meals Lab / Micro Data Attestation: I reviewed the patient's lab results. Result Diagrams: 11/01/20 06:38 11/01/20 06:38 Labs: Laboratory Results - last 24 hr 10/29/20 09:50: Diff Path Review Reviewed 11/01/20 06:38: WBC 8.0, RBC 4.96, Hgb 13.8, Hct 40.4, MCV 81.5 D, MCH 27.8, MCHC 34.2 D, RDW Std Deviation 42.5, RDW Coeff of Alondra 14.5, Plt Count 208, MPV 10.6 11/01/20 06:38: Sodium 138, Potassium 4.4, Chloride 109 H, Carbon Dioxide 19.0 L, Anion Gap 10, BUN 32 H, Creatinine 1.29, Estim Creat Clear Calc 48.77, Est GFR (MDRD) Af Amer 71, Est GFR (MDRD) Non-Af 59 L, BUN/Creatinine Ratio 24.8 H, Glucose 103, Calcium 8.2 L, Total Bilirubin 0.40, AST 49 H, ALT 63 H, Alkaline Phosphatase 62, Total Protein 6.5, Albumin 2.4 L, Globulin 4.1, Albumin/Globulin Ratio 0.6 L Micro: Microbiology 10/28/20 13:45 Blood Culture (Wb) - Anticubital Left Blood Culture - Preliminary No growth in 48 hours. 10/28/20 11:55 Mucosa - Nose SARS-CoV-2 Antigen (Rapid) - Final SARS-CoV-2 (COVID 19) 10/28/20 11:55 Mucosa - Nose Influenza Types A,B Direct FA (KENNY) - Final Physical Exam Const alert and no apparent distress General Appearance: cooperative HEENT normocephalic and head/scalp atraumatic Eyes PERRL, EOMs intact bilaterally and conjunctivae normal Neck supple General: trachea midline Resp normal respiratory effort Effort and Inspection: tachypneic Auscultation: rales and diminished lung sounds; Negative for rhonchi or wheezes Cardio regular rate and regular rhythm GI normal to inspection, nondistended, normoactive bowel sounds Extremity General Extremity: amputation; Negative for clubbing or edema Neuro CN's II-XII intact bilaterally and no focal motor deficits Psych cooperative and affect normal Charges/Coding Visit Charges Inpatient E&M: 68786 Subs Hosp L3
[2020-11-01] MEDS: dexAMETHasone 4 MG Tablet 6 MG PO (09:00)
[2020-11-01] MEDS: Acetaminophen 325 MG Tablet 650 MG PO ×2 (10:34→20:51)
--- NOTE | 2020-11-01 11:24 | PN.HOSP_ITS ---
Subjective Subjective Patient seen and examined. He still remains short of breath, and is tachypneic. He was on 6L of oxygen at time of review. He denied any cough, chest pain, palpitations, dizziness, nausea or vomiting. Review of systems is otherwise negative. Objective Data Objective Data Vital Signs: Vital Signs Temp Pulse Resp BP Pulse Ox 97.9 F 86 32 H 145/92 H 89 11/01/20 08:50 11/01/20 08:50 11/01/20 08:50 11/01/20 08:50 11/01/20 08:50 Oxygen Flow Rate (L/min) 6 Oxygen Delivery Method Nasal Cannula Weight: 175 lb 7.807 oz Body Mass Index (BMI) 27.6 Intake & Output: Intake and Output for Last 24 Hours 10/30/20 10/31/20 11/01/20 23:59 23:59 23:59 Intake Total 4202.5 / 4602.5 2481.25 / 2481.25 150 / 150 Output Total 1750 / 2000 1150 / 1150 550 / 550 Balance 2452.5 / 2602.5 1331.25 / 1331.25 -400 / -400 Medical Nutrition Assessment Dietitian: Nutrition Therapy Diagnosis Start: 10/29/20 11:27 Freq: Status: Active Protocol: Document 10/29/20 11:44 ANIL (Rec: 10/29/20 11:44 ANIL [id number]) Nutrition Malnutrition Evidence of Malnutrition Exists Yes Malnutrition (severe): Acute Illness/Injury Evidenced By Suboptimal Energy Intake ( Severe),Weight Loss (Severe) Clinical Problem Acute Disease or Injury Related Malnutrition Etiology related to acute illness Signs/Symptoms as evidenced by 5% wt loss x 1 mo and <50% po intake x 5 days prior to admission Status Active Problem Recommendation Dietitian Recommendations/Changes Will liberalize diet to Regular low sodium, d/t signs and symptoms of malnutrition, with mech soft consistency for ease of chewing - no teeth and dentures at home. Will provide 120 ml ensure enlive w/ meals Lab / Micro Data Result Diagrams: 11/01/20 06:38 11/01/20 06:38 Labs: Laboratory Results - last 24 hr 10/29/20 09:50: Diff Path Review Reviewed 11/01/20 06:38: WBC 8.0, RBC 4.96, Hgb 13.8, Hct 40.4, MCV 81.5 D, MCH 27.8, MCHC 34.2 D, RDW Std Deviation 42.5, RDW Coeff of Alondra 14.5, Plt Count 208, MPV 10.6 11/01/20 06:38: Sodium 138, Potassium 4.4, Chloride 109 H, Carbon Dioxide 19.0 L , Anion Gap 10, BUN 32 H, Creatinine 1.29, Estim Creat Clear Calc 48.77, Est GFR (MDRD) Af Amer 71, Est GFR (MDRD) Non-Af 59 L, BUN/Creatinine Ratio 24.8 H, Glucose 103, Calcium 8.2 L, Total Bilirubin 0.40, AST 49 H, ALT 63 H, Alkaline Phosphatase 62, Total Protein 6.5, Albumin 2.4 L, Globulin 4.1, Albumin/Globulin Ratio 0.6 L Micro: Microbiology 10/28/20 13:45 Blood Culture (Wb) - Anticubital Left Blood Culture - Preliminary No growth in 48 hours. 10/28/20 11:55 Mucosa - Nose SARS-CoV-2 Antigen (Rapid) - Final SARS-CoV-2 (COVID 19) 10/28/20 11:55 Mucosa - Nose Influenza Types A,B Direct FA (KENNY) - Final Physical Exam Const alert, oriented x3 and no apparent distress General Appearance: cooperative, well kempt and well developed Orientation / Consciousness: awake, oriented to person, oriented to place and oriented to time Exam Limitations: no limitations HEENT normocephalic, head/scalp atraumatic and moist oral mucous membranes Head and Scalp: normocephalic Eyes PERRL, EOMs intact bilaterally and conjunctivae normal Neck nuchal rigidity, no lymphadenopathy, supple, no JVD, thyroid normal and no carotid bruits General: trachea midline Resp Resp Narrative: bilateral crackles, no wheezing. On 6L of oxygen. tachypneic. Auscultation: Negative for rales, rhonchi or wheezes Cardio regular rate, regular rhythm, S1 normal heart sound, S2 normal heart sound and no murmurs GI normal to inspection, nondistended, normoactive bowel sounds, soft to palpation, non-tender and non-distended Extremity normal to inspection, full ROM and no clubbing, cyanosis or edema Peripheral Pulses: Yes pulses 2+ throughout Skin no rashes or lesions noted General Skin Exam: no breakdown Neuro oriented x3, CN's II-XII intact bilaterally, no focal motor deficits and no sensory deficits noted Sensorium / Orientation: awake and alert Speech: speech normal Psych thought process normal and affect normal Assessment & Plan Assessment/Plan (1) Pneumonia due to COVID-19 virus: (2) Acute and chronic respiratory failure with hypoxia: (3) Acute kidney injury: PLAN: #Acute hypoxic respiratory failure due to COVID 19 infection * on remdesivir and decadrone * now on 6L of oxygen * titrate oxygen to maintain sats >90% * to isolate for 20 days from onset of symptoms * patient actually had the gil and Gil vaccine previously * #WOJCIECH: resolved. Cr was 10 on admission and is now down to 1.29 #Acute non anion gap metabolic acidosis * likely due to WOJCIECH * was on bicarb, but this has now been discontinued. * nephrology on board * DVT prophylaxis: on heparin. Charges/Coding Visit Charges Inpatient E&M: 73421 Subs Hosp L3
[2020-11-01] MEDS: Furosemide 40 MG/4 ML Vial IV (12:00)
[2020-11-01 13:00] LABS: PSA, Free 1.45 ng/mL; PSA, Free % 5.4 % (.); PSA, Total Ultrasensitive 27.1 ng/mL (0.0-4.0)
[2020-11-01 15:10] LABS: BNP,B-Type NATRIURETIC PEPTIDE 122.5 pg/mL (0-100)
[2020-11-02] VITALS (25 sets, daily range): BP systolic 125–144; BP diastolic 90–102; PULSE 81–118; RESP 22–34; TEMP 36.6–37; O2SAT 50–98
[2020-11-02] MEDS: Heparin Injection (Vial) 5,000 UNIT/ML VIAL 5000 UNIT SC ×3 (06:06→21:28)
[2020-11-02 07:19] LABS: Hematocrit 42.2 % (40-54); Hemoglobin 13.9 g/dL (13.0-16.5); Mean Corp Hgb Conc 32.9 g/dL (32-36); Mean Corpuscular Hgb 27.2 pg (27.0-32.0); Mean Corpuscular Volume 82.6 fL (80-94); Mean Platelet Vol. 10.5 fl (6.2-12.0); Platelet Count 234 K/mm3 (150-450); RBC Distribution Width CV 14.5 % (11.6-14.6); RBC Distribution Width SD 43.2 fl (35.1-43.9); Red Blood Count 5.11 M/mm3 (4.6-6.2); White Blood Count 8.8 K/mm3 (4.4-11.0)
--- NOTE | 2020-11-02 07:41 | PN.HOSP_ITS ---
Subjective Subjective Patient seen and examined. He has no complaints this morning. he still remains tachypneic; he is on 50% FiO2 of oxygen via venturimask. He has no other complaints and review of systems is otherwise negative. Objective Data Objective Data Vital Signs: Vital Signs Temp Pulse Resp BP Pulse Ox 97.8 F 90 24 H 142/102 H 95 11/02/20 06:09 11/02/20 07:36 11/02/20 06:09 11/02/20 06:09 11/02/20 07:27 Oxygen Flow Rate (L/min) 90 Oxygen Delivery Method Venturi Mask Weight: 171 lb 1.259 oz Body Mass Index (BMI) 27.6 Intake & Output: Intake and Output for Last 24 Hours 10/31/20 11/01/20 11/02/20 23:59 23:59 23:59 Intake Total 2481.25 / 2481.25 900 / 900 250 / 250 Output Total 1150 / 1150 1900 / 1900 400 / 400 Balance 1331.25 / 1331.25 -1000 / -1000 -150 / -150 Medical Nutrition Assessment Dietitian: Nutrition Therapy Diagnosis Start: 10/29/20 11:27 Freq: Status: Active Protocol: Document 11/01/20 11:46 ANIL (Rec: 11/01/20 11:46 ANIL [id number]) Nutrition Malnutrition Evidence of Malnutrition Exists Yes Malnutrition (severe): Acute Illness/Injury Evidenced By Suboptimal Energy Intake ( Severe),Weight Loss (Severe) Clinical Problem Acute Disease or Injury Related Malnutrition Etiology related to acute illness Signs/Symptoms as evidenced by 5% wt loss x 1 mo and <50% po intake x 5 days prior to admission and continued poor po intake while in the hospital Status Active Problem Recommendation Dietitian Recommendations/Changes Will continue liberalized Regular low sodium, diet w/ easy to chew consistency per IGNITER CAPPER Will continue to provide 120 ml ensure enlive w/ meals Lab / Micro Data Result Diagrams: 11/02/20 06:32 11/01/20 06:38 Labs: Laboratory Results - last 24 hr 10/31/20 06:44: Free PSA 5.4, % Free PSA 1.45, Total PSA 27.1 H 11/01/20 06:38: B-Natriuretic Peptide 122.5 H 11/02/20 06:32: WBC 8.8, RBC 5.11, Hgb 13.9, Hct 42.2, MCV 82.6, MCH 27.2, MCHC 32.9, RDW Std Deviation 43.2, RDW Coeff of Alondra 14.5, Plt Count 234, MPV 10.5 Micro: Microbiology 10/28/20 13:45 Blood Culture (Wb) - Anticubital Left Blood Culture - Preliminary No growth in 48 hours. 10/28/20 11:55 Mucosa - Nose SARS-CoV-2 Antigen (Rapid) - Final SARS-CoV-2 (COVID 19) 10/28/20 11:55 Mucosa - Nose Influenza Types A,B Direct FA (KENNY) - Final Physical Exam Const alert, oriented x3 and no apparent distress General Appearance: cooperative, well kempt and well developed Orientation / Consciousness: awake, oriented to person, oriented to place and oriented to time Exam Limitations: no limitations HEENT normocephalic, head/scalp atraumatic and moist oral mucous membranes Head and Scalp: normocephalic Eyes PERRL, EOMs intact bilaterally and conjunctivae normal Neck nuchal rigidity, no lymphadenopathy, supple, no JVD, thyroid normal and no carot id bruits General: trachea midline Resp Resp Narrative: bilateral crackles, no wheezing. now on 50% Fi02, tachypneic Auscultation: Negative for rales, rhonchi or wheezes Cardio regular rate, regular rhythm, S1 normal heart sound, S2 normal heart sound and no murmurs GI normal to inspection, nondistended, normoactive bowel sounds, soft to palpation, non-tender and non-distended Extremity normal to inspection, full ROM and no clubbing, cyanosis or edema Peripheral Pulses: Yes pulses 2+ throughout Skin no rashes or lesions noted General Skin Exam: no breakdown Neuro oriented x3, CN's II-XII intact bilaterally, no focal motor deficits and no sensory deficits noted Sensorium / Orientation: awake and alert Speech: speech normal Psych thought process normal and affect normal Assessment & Plan Assessment/Plan (1) Pneumonia due to COVID-19 virus: (2) Acute and chronic respiratory failure with hypoxia: (3) Acute kidney injury: PLAN: #Acute hypoxic respiratory failure due to COVID 19 infection * on remdesivir and decadrone * on 50% Fi02 via venturi mask. * titrate oxygen to maintain sats >90% * to isolate for 20 days from onset of symptoms * patient actually had the gil and Gil vaccine previously * #WOJCIECH: resolved. #Acute non anion gap metabolic acidosis * likely due to WOJCIECH * was on bicarb, but this has now been discontinued. * nephrology on board * DVT prophylaxis: on heparin. Charges/Coding Visit Charges Inpatient E&M: 12385 Subs Hosp L2
[2020-11-02 07:56] LABS: ALB/GLOB Ratio 0.5 RATIO (0.9-2.4); AST(SGOT) 37 U/L (15-37); Alanine Aminotransfer ALT/SGPT 60 U/L (16-61); Albumin, Serum 2.4 g/dL (3.2-5.0); Alkaline Phosphatase 70 U/L (45-117); Anion Gap 10 (5-15); BUN 32 mg/dL (7-18); BUN/Creat Ratio 24.8 RATIO (10-20); Calcium,Total 8.7 mg/dL (8.5-10.1); Chloride 106 mmol/L (98-107); Creatinine, Serum 1.29 mg/dL (0.70-1.30); EST Glomerular Filtration Rate 59 mL/min (>60); Est Glom Filt Rate - Afr Amer 71 mL/min (>60); Estimated Creatinine Clearance 48.77 ml/min; Globulin 4.8 g/dL (2.2-4.2); Glucose 129 mg/dL (74-106); Potassium 4.3 mmol/L (3.5-5.1); Protein, Total 7.2 g/dL (6.4-8.2); Sodium Level 138 mmol/L (136-145)
--- NOTE | 2020-11-02 09:08 | CPS ---
airvo started. 31 degrees, 40 lpm, 65% fio2. started lpm low, patient bothered by higher flow. will titrate as needed.
--- NOTE | 2020-11-02 09:56 | PCM.PN.REN ---
Subjective Subjective Following patient for acute kidney injury. The patient denies chest pain, shortness of breath at rest, nausea, or vomiting. Appetite is slightly improving. Objective Data Objective Data Vital Signs: Vital Signs Temp Pulse Resp BP Pulse Ox 98.1 F 88 28 H 143/95 H 96 11/02/20 08:21 11/02/20 09:07 11/02/20 09:07 11/02/20 08:21 11/02/20 09:07 Oxygen Flow Rate (L/min) 90 Oxygen Delivery Method Venturi Mask Weight: 77.6 kg Body Mass Index (BMI) 27.6 Intake & Output: Intake and Output for Last 24 Hours 10/31/20 11/01/20 11/02/20 23:59 23:59 23:59 Intake Total 2481.25 / 2481.25 900 / 900 250 / 250 Output Total 1150 / 1150 1900 / 1900 400 / 400 Balance 1331.25 / 1331.25 -1000 / -1000 -150 / -150 Medical Nutrition Assessment Dietitian: Nutrition Therapy Diagnosis Start: 10/29/20 11:27 Freq: Status: Active Protocol: Document 11/01/20 11:46 ANIL (Rec: 11/01/20 11:46 [facility] [id number]) Nutrition Malnutrition Evidence of Malnutrition Exists Yes Malnutrition (severe): Acute Illness/Injury Evidenced By Suboptimal Energy Intake ( Severe),Weight Loss (Severe) Clinical Problem Acute Disease or Injury Related Malnutrition Etiology related to acute illness Signs/Symptoms as evidenced by 5% wt loss x 1 mo and <50% po intake x 5 days prior to admission and continued poor po intake while in the hospital Status Active Problem Recommendation Dietitian Recommendations/Changes Will continue liberalized Regular low sodium, diet w/ easy to chew consistency per HEAVY EQUIPMENT SERVICE MANAGER Will continue to provide 120 ml ensure enlive w/ meals Lab / Micro Data Result Diagrams: 11/02/20 06:32 11/02/20 06:32 Labs: Laboratory Results - last 24 hr 10/31/20 06:44: Free PSA 5.4, % Free PSA 1.45, Total PSA 27.1 H 11/01/20 06:38: B-Natriuretic Peptide 122.5 H 11/02/20 06:32: WBC 8.8, RBC 5.11, Hgb 13.9, Hct 42.2, MCV 82.6, MCH 27.2, MCHC 32.9, RDW Std Deviation 43.2, RDW Coeff of Alondra 14.5, Plt Count 234, MPV 10.5 11/02/20 06:32: Sodium 138, Potassium 4.3, Chloride 106, Carbon Dioxide 22.0, Anion Gap 10, BUN 32 H, Creatinine 1.29, Estim Creat Clear Calc 48.77, Est GFR (MDRD) Af Amer 71, Est GFR (MDRD) Non-Af 59 L, BUN/Creatinine Ratio 24.8 H, Glucose 129 H, Calcium 8.7, Total Bilirubin 0.50, AST 37, ALT 60, Alkaline Phosphatase 70, Total Protein 7.2, Albumin 2.4 L, Globulin 4.8 H, Albumin/Globulin Ratio 0.5 L Micro: Microbiology 10/28/20 13:45 Blood Culture (Wb) - Anticubital Left Blood Culture - Preliminary No growth in 48 hours. 10/28/20 11:55 Mucosa - Nose SARS-CoV-2 Antigen (Rapid) - Final SARS-CoV-2 (COVID 19) 10/28/20 11:55 Mucosa - Nose Influenza Types A,B Direct FA (KENNY) - Final Physical Exam Narrative General: No apparent distress. HEENT: Normocephalic, atraumatic. Mucous membrane moist. Heart: Normal S1, S2. No rubs or murmurs. Lungs: Clear to auscultation anteriorly. Abdomen: Normal bowel sound, soft, nontender, no guarding or rebound. Extremity: Status post right AKA. There is no left lower extremity edema. Assessment & Plan Assessment/Plan (1) Acute kidney injury: PLAN: Suspect WOJCIECH is prerenal from sepsis. Baseline serum creatinine is unknown as there are no previous laboratory tests for comparison prior to this admission. The patient denies prior history of CKD. Serum creatinine peaked at 10.0 mg/dL on 10/28/2020. Renal function has stabilized over the last 48 hours. Continuing to hold lisinopril. However, if renal function remains stable in the next 24 to 48 hours, I will consider restarting SPENCER inhibitor. (2) Hypertension: PLAN: The patient had been on lisinopril at 20 mg/day at home prior to admission. Lisinopril was on hold because of acute kidney injury. If renal function improves or remained stable in the next 24 hours, I will consider restarting SPENCER inhibitor. (3) Metabolic acidosis: PLAN: Serum bicarbonate level has improved as renal function has improved. Serum bicarbonate levels as low as 14 mmol/L on 10/30/2020. Serum bicarbonate level is now 22 mmol/L. We will continue to monitor. (4) Pneumonia due to COVID-19 virus: PLAN: The patient is on remdesivir. Management as per hospital medicine and pulmonary service. Above discussed with Dr. Ingram.
[2020-11-02] MEDS: 0.9% Saline Lock 10 ML Syringe IV ×3 (10:22→21:28)
[2020-11-02] MEDS: Furosemide 40 MG/4 ML Vial IV ×2 (10:22→17:44)
[2020-11-02] MEDS: dexAMETHasone 4 MG Tablet 6 MG PO (10:22)
--- NOTE | 2020-11-02 11:08 | CPS ---
34 degrees, 60 lpm, 70%, patient satting 100 percent
--- NOTE | 2020-11-02 16:46 | CPS ---
34 degrees, 50 lpm, 70% fioz, airvo
[2020-11-03] VITALS (22 sets, daily range): BP systolic 105–144; BP diastolic 80–93; PULSE 80–110; RESP 13–30; TEMP 36.4–37.1; O2SAT 90–98
[2020-11-03 06:45] LABS: Hemoglobin 14.4 g/dL (13.0-16.5); Mean Corp Hgb Conc 32.7 g/dL (32-36); Mean Corpuscular Hgb 27.4 pg (27.0-32.0); Mean Corpuscular Volume 83.8 fL (80-94); Mean Platelet Vol. 10.8 fl (6.2-12.0); Platelet Count 253 K/mm3 (150-450); RBC Distribution Width CV 14.6 % (11.6-14.6); RBC Distribution Width SD 44.2 fl (35.1-43.9); Red Blood Count 5.25 M/mm3 (4.6-6.2); White Blood Count 11.3 K/mm3 (4.4-11.0)
[2020-11-03] MEDS: 0.9% Saline Lock 10 ML Syringe IV (06:47)
[2020-11-03] MEDS: Heparin Injection (Vial) 5,000 UNIT/ML VIAL 5000 UNIT SC ×3 (06:47→21:25)
--- NOTE | 2020-11-03 06:55 | CT_ITS ---
STUDY: CTA CHEST REASON FOR EXAM: Male, 70 years old. PE evaluation RADIATION DOSAGE (If Supplied By Facility): CTDIvol = ( 11.25 ) mGy, DLP = ( 550.45 ) mGycm TECHNIQUE: The examination was performed with the intravenous administration of IV 100mL Isovue-370. Post-processing of the angiographic images was performed, with multiplanar reformation and 3D reconstruction. Individualized dose optimization techniques were used for this CT. COMPARISON: Comparison is made with prior study dated 10/28/2020. FINDINGS: Normal enhancement of the main pulmonary artery and right and left pulmonary arteries. Normal enhancement of the bilateral peripheral pulmonary arteries. There is no demonstrated pulmonary embolism. Normal thoracic aorta and visualized great vessels. There is no demonstrated aortic dissection. Normal heart and pericardium. Normal mediastinum. Normal hilar regions. Normal visualized trachea and bronchi. The lungs are well expanded. Since prior study, there has been progressive bilateral groundglass appearance in both lungs involving both the upper and lower lobes. There is a preferential peripheral distribution. Pneumonitis secondary to Covid 19 should be ruled out. Calcified left pleural plaques. Normal chest wall structures. There are degenerative changes of thoracic spine. The patient is status post cholecystectomy. CT/CTA Chest W/WO Contrast IMPRESSION: No evidence of pulmonary embolism. Diffuse bilateral alveolar groundglass appearance which has progressed as compared to prior study. Pneumonitis secondary to Covid19 should be ruled out. Electronically Signed: Cole Kumar MD at 8:46 EDT , Service support ,
--- NOTE | 2020-11-03 06:56 | PCM.PN.INT ---
Assessment & Plan Assessment/Plan (1) COVID-19: PLAN: RECOMMENDATIONS: 1. Consider transfer to higher acuity level, given progressive decline in respiratory status. 2. Follow-up with infectious diseases regarding potential Tocilizumab administration. 3. Continue Decadron to complete 10-day treatment course. 4. Continue remdesivir per ID recommendations. 5. Continue heated high flow as tolerated. Initiate BiPAP therapy if needed to maintain saturations at or above 90%. IMPRESSIONS: 1. Acute hypoxemic respiratory failure secondary to COVID-19 pneumonia Plan to continue current supportive measures including supplemental oxygen to maintain saturations at or above 90%. Continue Decadron to complete 10-day treatment course. Given improvement in renal status, the patient was initiated on remdesivir, which will be continued per ID recommendations. Encourage incentive spirometer use and mobilize patient as tolerated. If the patient does not respond to heated high flow oxygen, he will be initiated on BiPAP therapy. Recommend consideration for tocilizumab, if feasible from an infectious diseases standpoint. 2. Acute kidney injury Resolved. Creatinine has improved with volume expansion. Etiology for WOJCIECH is likely prerenal in nature. Nephrology is currently following. This note was generated with [employer] dictation software. It may contain incorrect words, spelling, and punctuation that were not noted in checking the note before signing. Subjective Subjective The patient was seen and examined at the bedside this morning. Events from the last 24 hours have been reviewed. The patient is currently afebrile, hemodynamically stable and maintaining appropriate oxygen saturations on Airvo heated high flow with an FiO2 requirement of 77% and flow rate of 50 L/min. The patient's oxygenation requirement has increased over the last 24 hours. He is currently documented to be overall net +4 L for the hospital admission. Previously, on admission to the hospital, the patient was noted to have an elevated D-dimer. However, CTA chest cannot be obtained due to the patient's renal insufficiency. The patient remains on remdesivir, Decadron and scheduled IV Lasix. Given the patient progressively increasing oxygen demand over the last 24 to 48 hours, a CTA chest was obtained this morning which demonstrated no evidence for PE. However, progressive bilateral groundglass opacities were noted. The patient's creatinine also increased from yesterday. Therefore, IV Lasix was discontinued completely. Objective Data Objective Data The patient's most recent lab work, culture data and imaging studies have all been personally reviewed. Rapid coronavirus antigen testing was positive on October 28. Blood cultures have not demonstrated any growth to date. Vital Signs: Vital Signs Temp Pulse Resp BP Pulse Ox 98.8 F 88 22 H 140/81 H 97 11/03/20 06:43 11/03/20 06:43 11/03/20 06:43 11/03/20 06:43 11/03/20 06:43 Oxygen Flow Rate (L/min) 50 Oxygen Delivery Method Airvo Weight: 76.4 kg Body Mass Index (BMI) 27.6 Intake & Output: Intake and Output for Last 24 Hours 11/01/20 11/02/20 11/03/20 23:59 23:59 23:59 Intake Total 900 / 900 500 / 500 Output Total 1900 / 1900 1775 / 1775 800 / 800 Balance -1000 / -1000 -1275 / -1275 -800 / -800 Medical Nutrition Assessment Dietitian: Nutrition Therapy Diagnosis Start: 10/29/20 11:27 Freq: Status: Active Protocol: Document 11/01/20 11:46 SLA (Rec: 11/01/20 11:46 SLA [id number]) Nutrition Malnutrition Evidence of Malnutrition Exists Yes Malnutrition (severe): Acute Illness/Injury Evidenced By Suboptimal Energy Intake ( Severe),Weight Loss (Severe) Clinical Problem Acute Disease or Injury Related Malnutrition Etiology related to acute illness Signs/Symptoms as evidenced by 5% wt loss x 1 mo and <50% po intake x 5 days prior to admission and continued poor po intake while in the hospital Status Active Problem Recommendation Dietitian Recommendations/Changes Will continue liberalized Regular low sodium, diet w/ easy to chew consistency per DRAFTER ENGINEERING Will continue to provide 120 ml ensure enlive w/ meals Lab / Micro Data Attestation: I reviewed the patient's lab results. Result Diagrams: 11/03/20 06:26 11/03/20 06:26 Labs: Laboratory Results - last 24 hr 11/02/20 06:32: WBC 8.8, RBC 5.11, Hgb 13.9, Hct 42.2, MCV 82.6, MCH 27.2, MCHC 32.9, RDW Std Deviation 43.2, RDW Coeff of Alondra 14.5, Plt Count 234, MPV 10.5 11/02/20 06:32: Sodium 138, Potassium 4.3, Chloride 106, Carbon Dioxide 22.0, Anion Gap 10, BUN 32 H, Creatinine 1.29, Estim Creat Clear Calc 48.77, Est GFR (MDRD) Af Amer 71, Est GFR (MDRD) Non-Af 59 L, BUN/Creatinine Ratio 24.8 H, Glucose 129 H, Calcium 8.7, Total Bilirubin 0.50, AST 37, ALT 60, Alkaline Phosphatase 70, Total Protein 7.2, Albumin 2.4 L, Globulin 4.8 H, Albumin/Globulin Ratio 0.5 L 11/03/20 06:26: WBC 11.3 H, RBC 5.25, Hgb 14.4, Hct 44.0, MCV 83.8, MCH 27.4, MCHC 32.7, RDW Std Deviation 44.2 H, RDW Coeff of Alondra 14.6, Plt Count 253, MPV 10.8 Micro: Microbiology 10/28/20 13:45 Blood Culture (Wb) - Anticubital Left Blood Culture - Final No growth in 5 days. 10/28/20 11:55 Mucosa - Nose SARS-CoV-2 Antigen (Rapid) - Final SARS-CoV-2 (COVID 19) 10/28/20 11:55 Mucosa - Nose Influenza Types A,B Direct FA (KENNY) - Final Physical Exam Const alert and no apparent distress General Appearance: cooperative HEENT normocephalic and head/scalp atraumatic Eyes PERRL, EOMs intact bilaterally and conjunctivae normal Neck supple General: trachea midline Resp normal respiratory effort Effort and Inspection: tachypneic Auscultation: rales and diminished lung sounds; Negative for rhonchi or wheezes Cardio regular rate and regular rhythm GI normal to inspection, nondistended, normoactive bowel sounds Extremity General Extremity: amputation; Negative for clubbing or edema Neuro CN's II-XII intact bilaterally and no focal motor deficits Psych cooperative and affect normal Charges/Coding Visit Charges Inpatient E&M: 63662 Subs Hosp L3
[2020-11-03 07:12] LABS: ALB/GLOB Ratio 0.5 RATIO (0.9-2.4); AST(SGOT) 26 U/L (15-37); Alanine Aminotransfer ALT/SGPT 56 U/L (16-61); Albumin, Serum 2.5 g/dL (3.2-5.0); Alkaline Phosphatase 76 U/L (45-117); Anion Gap 10 (5-15); BUN 40 mg/dL (7-18); BUN/Creat Ratio 27.4 RATIO (10-20); Chloride 102 mmol/L (98-107); Creatinine, Serum 1.46 mg/dL (0.70-1.30); EST Glomerular Filtration Rate 51 mL/min (>60); Est Glom Filt Rate - Afr Amer 62 mL/min (>60); Estimated Creatinine Clearance 43.09 ml/min; Globulin 5.3 g/dL (2.2-4.2); Glucose 131 mg/dL (74-106); Potassium 4.5 mmol/L (3.5-5.1); Protein, Total 7.8 g/dL (6.4-8.2); Sodium Level 135 mmol/L (136-145)
--- NOTE | 2020-11-03 07:47 | PN.HOSP_ITS ---
Subjective Subjective Patient seen and examined. He remains on AirVo @ 76% FiO2. He has no active complaints and review of systems otherwise negative. He felt like he was at his baseline; however he had a chest CT today for evaluation which showed no evidence of PE, but showed diffuse bilateral alveolar groundglass appearance which had progressed compared to prior study. Patient was therefore transferred to ICu per discussion with pulmonology. Objective Data Objective Data Vital Signs: Vital Signs Temp Pulse Resp BP Pulse Ox 98.8 F 88 22 H 140/81 H 92 11/03/20 06:43 11/03/20 07:14 11/03/20 07:14 11/03/20 06:43 11/03/20 07:14 Oxygen Flow Rate (L/min) 50 Oxygen Delivery Method Airvo Weight: 168 lb 6.931 oz Body Mass Index (BMI) 27.6 Intake & Output: Intake and Output for Last 24 Hours 11/01/20 11/02/20 11/03/20 23:59 23:59 23:59 Intake Total 900 / 900 500 / 500 Output Total 1900 / 1900 1775 / 1775 800 / 800 Balance -1000 / -1000 -1275 / -1275 -800 / -800 Medical Nutrition Assessment Dietitian: Nutrition Therapy Diagnosis Start: 10/29/20 11:27 Freq: Status: Active Protocol: Document 11/01/20 11:46 ANIL (Rec: 11/01/20 11:46 ANIL [id number]) Nutrition Malnutrition Evidence of Malnutrition Exists Yes Malnutrition (severe): Acute Illness/Injury Evidenced By Suboptimal Energy Intake ( Severe),Weight Loss (Severe) Clinical Problem Acute Disease or Injury Related Malnutrition Etiology related to acute illness Signs/Symptoms as evidenced by 5% wt loss x 1 mo and <50% po intake x 5 days prior to admission and continued poor po intake while in the hospital Status Active Problem Recommendation Dietitian Recommendations/Changes Will continue liberalized Regular low sodium, diet w/ easy to chew consistency per CONTAINER FINISHING INSPECTOR Will continue to provide 120 ml ensure enlive w/ meals Lab / Micro Data Result Diagrams: 11/03/20 06:26 11/03/20 06:26 Labs: Laboratory Results - last 24 hr 11/02/20 06:32: Sodium 138, Potassium 4.3, Chloride 106, Carbon Dioxide 22.0, Anion Gap 10, BUN 32 H, Creatinine 1.29, Estim Creat Clear Calc 48.77, Est GFR (MDRD) Af Amer 71, Est GFR (MDRD) Non-Af 59 L, BUN/Creatinine Ratio 24.8 H, Gluc ose 129 H, Calcium 8.7, Total Bilirubin 0.50, AST 37, ALT 60, Alkaline Phosphatase 70, Total Protein 7.2, Albumin 2.4 L, Globulin 4.8 H, Albumin/Globulin Ratio 0.5 L 11/03/20 06:26: WBC 11.3 H, RBC 5.25, Hgb 14.4, Hct 44.0, MCV 83.8, MCH 27.4, MCHC 32.7, RDW Std Deviation 44.2 H, RDW Coeff of Alondra 14.6, Plt Count 253, MPV 10.8 11/03/20 06:26: Sodium 135 L, Potassium 4.5, Chloride 102, Carbon Dioxide 23.0, Anion Gap 10, BUN 40 H, Creatinine 1.46 H, Estim Creat Clear Calc 43.09, Est GFR (MDRD) Af Amer 62, Est GFR (MDRD) Non-Af 51 L, BUN/Creatinine Ratio 27.4 H, Glucose 131 H, Calcium 9.0, Total Bilirubin 0.50, AST 26, ALT 56, Alkaline Phosphatase 76, Total Protein 7.8, Albumin 2.5 L, Globulin 5.3 H, Albumin/Globulin Ratio 0.5 L Micro: Microbiology 10/28/20 21:40 Blood Culture (Wb) #2 - Anticubital Right Blood Culture - Final No growth in 5 days. 10/28/20 13:45 Blood Culture (Wb) - Anticubital Left Blood Culture - Final No growth in 5 days. 10/28/20 11:55 Mucosa - Nose SARS-CoV-2 Antigen (Rapid) - Final SARS-CoV-2 (COVID 19) 10/28/20 11:55 Mucosa - Nose Influenza Types A,B Direct FA (KENNY) - Final Physical Exam Const alert, oriented x3 and no apparent distress General Appearance: cooperative, well kempt and well developed Orientation / Consciousness: awake, oriented to person, oriented to place and oriented to time Exam Limitations: no limitations HEENT normocephalic, head/scalp atraumatic and moist oral mucous membranes Head and Scalp: normocephalic Eyes PERRL, EOMs intact bilaterally and conjunctivae normal Neck nuchal rigidity, no lymphadenopathy, supple, no JVD, thyroid normal and no carotid bruits General: trachea midline Resp Resp Narrative: bilateral crackles, no wheezing. now on 76% Fi02, tachypneic Auscultation: Negative for rales, rhonchi or wheezes Cardio regular rate, regular rhythm, S1 normal heart sound, S2 normal heart sound and no murmurs GI normal to inspection, nondistended, normoactive bowel sounds, soft to palpation, non-tender and non-distended Extremity normal to inspection, full ROM and no clubbing, cyanosis or edema Skin no rashes or lesions noted General Skin Exam: no breakdown Neuro oriented x3, CN's II-XII intact bilaterally, no focal motor deficits and no sensory deficits noted Sensorium / Orientation: awake and alert Speech: speech normal Psych thought process normal and affect normal Assessment & Plan Assessment/Plan (1) Pneumonia due to COVID-19 virus: (2) Acute and chronic respiratory failure with hypoxia: (3) Acute kidney injury: PLAN: #Acute hypoxic respiratory failure due to COVID 19 infection * repeat CT of the chest today showed diffuse bilateral alveolar groundglass appearance which had worsened compared to previous imaging * patient transferred emergently to ICu today for further workup. * on remdesivir and decadrone * now on 76% Fi02 via venturi mask. * titrate oxygen to maintain sats >90% * to isolate for 20 days from onset of symptoms * patient actually had the Gil and Gil vaccine previously * #WOJCIECH: resolved. Cr has trended up slightly to 1.46 today. #Acute non anion gap metabolic acidosis * likely due to WOJCIECH * resolved. Bicarb is now 23 * DVT prophylaxis: on heparin. Charges/Coding Visit Charges Inpatient E&M: 71651 Subs Hosp L3
[2020-11-03 09:36] LABS: Procalcitonin 0.22 ng/mL (0.00-0.09)
--- NOTE | 2020-11-03 10:25 | PCM.PN.REN ---
Subjective Subjective Following for acute kidney injury. The patient is being moved to CVICU because of worsening pulmonary infiltrate. Actively, he feels about the same as yesterday. He denies nausea, vomiting or chest pain. He has dyspnea with activities. Objective Data Objective Data Vital Signs: Vital Signs Temp Pulse Resp BP Pulse Ox 98.8 F 88 22 H 140/81 H 92 11/03/20 06:43 11/03/20 07:14 11/03/20 07:14 11/03/20 06:43 11/03/20 07:14 Oxygen Flow Rate (L/min) 50 Oxygen Delivery Method Airvo Weight: 76.4 kg Body Mass Index (BMI) 27.6 Intake & Output: Intake and Output for Last 24 Hours 11/01/20 11/02/20 11/03/20 23:59 23:59 23:59 Intake Total 900 / 900 500 / 500 Output Total 1900 / 1900 1775 / 1775 800 / 800 Balance -1000 / -1000 -1275 / -1275 -800 / -800 Medical Nutrition Assessment Dietitian: Nutrition Therapy Diagnosis Start: 10/29/20 11:27 Freq: Status: Active Protocol: Document 11/01/20 11:46 ANIL (Rec: 11/01/20 11:46 [facility] [id number]) Nutrition Malnutrition Evidence of Malnutrition Exists Yes Malnutrition (severe): Acute Illness/Injury Evidenced By Suboptimal Energy Intake ( Severe),Weight Loss (Severe) Clinical Problem Acute Disease or Injury Related Malnutrition Etiology related to acute illness Signs/Symptoms as evidenced by 5% wt loss x 1 mo and <50% po intake x 5 days prior to admission and continued poor po intake while in the hospital Status Active Problem Recommendation Dietitian Recommendations/Changes Will continue liberalized Regular low sodium, diet w/ easy to chew consistency per CHANNEL LAYER Will continue to provide 120 ml ensure enlive w/ meals Lab / Micro Data Result Diagrams: 11/03/20 06:26 11/03/20 06:26 Labs: Laboratory Results - last 24 hr 11/03/20 06:26: WBC 11.3 H, RBC 5.25, Hgb 14.4, Hct 44.0, MCV 83.8, MCH 27.4, MCHC 32.7, RDW Std Deviation 44.2 H, RDW Coeff of Alondra 14.6, Plt Count 253, MPV 10.8 11/03/20 06:26: Sodium 135 L, Potassium 4.5, Chloride 102, Carbon Dioxide 23.0, Anion Gap 10, BUN 40 H, Creatinine 1.46 H, Estim Creat Clear Calc 43.09, Est GFR (MDRD) Af Amer 62, Est GFR (MDRD) Non-Af 51 L, BUN/Creatinine Ratio 27.4 H, Glucose 131 H, Calcium 9.0, Total Bilirubin 0.50, AST 26, ALT 56, Alkaline Phosphatase 76, Total Protein 7.8, Albumin 2.5 L, Globulin 5.3 H, Albumin/Globulin Ratio 0.5 L 11/03/20 08:40: Procalcitonin 0.22 H Micro: Microbiology 10/28/20 21:40 Blood Culture (Wb) #2 - Anticubital Right Blood Culture - Final No growth in 5 days. 10/28/20 13:45 Blood Culture (Wb) - Anticubital Left Blood Culture - Final No growth in 5 days. 10/28/20 11:55 Mucosa - Nose SARS-CoV-2 Antigen (Rapid) - Final SARS-CoV-2 (COVID 19) 10/28/20 11:55 Mucosa - Nose Influenza Types A,B Direct FA (KENNY) - Final Radiography Diagnostic Testing: Radiology Impression Chest CTA 11/03/20 06:55 IMPRESSION: No evidence of pulmonary embolism. Diffuse bilateral alveolar groundglass appearance which has progressed as compared to prior study. Pneumonitis secondary to Covid19 should be ruled out. Electronically Signed: Cole Kumar MD at 8:46 EDT , Service support , Physical Exam Narrative General: No apparent distress. HEENT: Normocephalic, atraumatic. Mucous membrane moist. Heart: Normal S1, S2. No rubs or murmurs. Lungs: Clear to auscultation anteriorly. Abdomen: Normal bowel sound, soft, nontender, no guarding or rebound. Extremity: Status post right AKA. There is no left lower extremity edema. Assessment & Plan Assessment/Plan (1) Acute kidney injury: PLAN: Suspect WOJCIECH is prerenal from sepsis. Baseline serum creatinine is unknown as there are no previous laboratory tests for comparison prior to this admission. The patient denies prior history of CKD. Serum creatinine peaked at 10.0 mg/dL on 10/28/2020. Renal function had been stabilizing until today. The bump and serum creatinine in the last 24 hours may be due to diuresis. Lasix has been put on hold. However, if respiratory distress increases, I am okay with restarting Lasix later today or tomorrow. I will continue to monitor renal function. There is no need for therapeutic change aside from holding Lasix at this point. (2) Hypertension: PLAN: The patient had been on lisinopril at 20 mg/day at home prior to admission. Lisinopril was on hold because of acute kidney injury. BP is under reasonable control despite not being on lisinopril. (3) Metabolic acidosis: PLAN: Serum bicarbonate level has stabilized. Serum bicarbonate levels as low as 14 mmol/L on 10/30/2020. Serum bicarbonate level is now 22 mmol/L. We will continue to monitor since renal function is still fluctuating. (4) Pneumonia due to COVID-19 virus: PLAN: The patient is on remdesivir. Management as per hospital medicine and pulmonary service. The patient is being moved to ICU for closer monitoring because of worsening pulmonary infiltrate. Above discussed with Dr. Ingram.
[2020-11-03] MEDS: dexAMETHasone 4 MG Tablet 6 MG PO (11:18)
--- NOTE | 2020-11-03 15:34 | PCM.PN.ID ---
Physical Exam Narrative Worsened O2, moved to ICU this AM. C/o dyspnea, no fever Const alert General Appearance: cooperative Resp Auscultation: diminished lung sounds Cardio regular rate and regular rhythm GI normal to inspection, nondistended, normoactive bowel sounds Extremity no clubbing, cyanosis or edema Skin no rashes or lesions noted ID ID: Route of nutrition/ use of supplements: [] Nutritional Intake: [] IV Site: [] Geller Catheter: [] Assessment & Plan Assessment/Plan (1) Acute kidney injury: (2) COVID-19: PLAN: Sx started 10/24/20. Has been vaccinated. WOJCIECH improved. On dex for 10 day course, also started remdesivir. Quarantine for 20 days from start of symptoms. Now with worsening O2, will check labs, order tocilizumab but not clear when it will be available. Will follow, d/w Dr. Landry and pharmacy (3) Hypoxemia:
[2020-11-03] MEDS: Acetaminophen 325 MG Tablet 650 MG PO (21:25)
[2020-11-04] VITALS (18 sets, daily range): BP systolic 110–124; BP diastolic 79–98; PULSE 72–104; RESP 16–22; TEMP 36.6–36.8; O2SAT 91–98
--- NOTE | 2020-11-04 05:42 | PN.CC_ITS ---
Assessment & Plan Assessment/Plan (1) COVID-19: PLAN: RECOMMENDATIONS: 1. Continue remdesivir and Decadron as ordered to complete treatment courses. 2. Continue to wean FiO2 to maintain oxygen saturations at or above 90%. 3. Recheck BMP this morning. 4. Encourage incentive spirometer use and mobilize patient as tolerated. 5. Patient will be made PCU status. IMPRESSIONS: 1. Acute hypoxemic respiratory failure secondary to COVID-19 pneumonia Plan to continue current supportive measures including supplemental oxygen to maintain saturations at or above 90%. Continue Decadron to complete 10-day treatment course. Given improvement in renal status, the patient was initiated on remdesivir, which will be continued per ID recommendations. Encourage incentive spirometer use and mobilize patient as tolerated. Encourage incentive spirometer use and mobilize patient as tolerated. 2. Acute kidney injury Resolved. Creatinine has improved with volume expansion. Etiology for WOJCIECH is likely prerenal in nature. Nephrology is currently following. This note was generated with [employer] dictation software. It may contain incorrect words, spelling, and punctuation that were not noted in checking the note before signing. Subjective Subjective The patient was seen and examined at the bedside this morning. Events from the last 24 hours have been reviewed. The patient is currently afebrile, hemodynamically stable and maintaining appropriate oxygen saturations on Airvo heated high flow with an FiO2 requirement of 48%. The patient is documented to be overall net +3.8 L for the hospital admission. Per nursing, the patient readily desaturates when he is removed from heated high flow oxygen. Tocilizumab was ordered for the patient, but not yet available. The patient remains on remdesivir and Decadron. Objective Data Objective Data The patient's most recent lab work, culture data and imaging studies have all been personally reviewed. Rapid coronavirus antigen testing was positive on October 28. Blood cultures have not demonstrated any growth to date. Vital Signs: Vital Signs Temp Pulse Resp BP Pulse Ox 97.9 F 72 18 113/85 H 95 11/04/20 01:00 11/04/20 05:18 11/04/20 05:18 11/04/20 01:00 11/04/20 05:18 Oxygen Flow Rate (L/min) 60 Oxygen Delivery Method Airvo Weight: 78.1 kg Body Mass Index (BMI) 27.6 Intake & Output: Intake and Output for Last 24 Hours 11/02/20 11/03/20 11/04/20 23:59 23:59 23:59 Intake Total 500 / 500 250 / 250 0 / 0 Output Total 1775 / 1775 1175 / 1275 100 / 100 Balance -1275 / -1275 -925 / -1025 -100 / -100 Medical Nutrition Assessment Dietitian: Nutrition Therapy Diagnosis Start: 10/29/20 11:27 Freq: Status: Active Protocol: Document 11/03/20 12:04 BP (Rec: 11/03/20 12:04 BP [id number]) Nutrition Malnutrition Evidence of Malnutrition Exists Yes Malnutrition (moderate): Acute Illness/Injury Evidenced By Suboptimal Energy Intake ( Severe),Weight Loss (Moderate) Clinical Problem Acute Disease or Injury Related Malnutrition Etiology Moderate malnutrition in the context of acute illness related to inadequate oral intake Signs/Symptoms as evidenced by 5% wt loss x 1 month, </=50% energy intake compared to estimated energy needs x 5 days prior to admission, and continued poor oral intake since admission 10/28. Status Active Problem Recommendation Dietitian Recommendations/Changes Will continue liberalized Regular low sodium, diet w/ easy to chew consistency per ICE RINK ATTENDANT Will continue to provide 120 ml ensure enlive w/ meals. Will provide ensure pudding/ magic cup with pt meals for additional siddhartha/protein if consumed. Lab / Micro Data Attestation: I reviewed the patient's lab results. Result Diagrams: 11/03/20 06:26 11/03/20 06:26 Labs: Laboratory Results - last 24 hr 11/03/20 06:26: WBC 11.3 H, RBC 5.25, Hgb 14.4, Hct 44.0, MCV 83.8, MCH 27.4, MCHC 32.7, RDW Std Deviation 44.2 H, RDW Coeff of Alondra 14.6, Plt Count 253, MPV 10.8 11/03/20 06:26: Sodium 135 L, Potassium 4.5, Chloride 102, Carbon Dioxide 23.0, Anion Gap 10, BUN 40 H, Creatinine 1.46 H, Estim Creat Clear Calc 43.09, Est GFR (MDRD) Af Amer 62, Est GFR (MDRD) Non-Af 51 L, BUN/Creatinine Ratio 27.4 H, Glucose 131 H, Calcium 9.0, Total Bilirubin 0.50, AST 26, ALT 56, Alkaline Phosphatase 76, Total Protein 7.8, Albumin 2.5 L, Globulin 5.3 H, Albumin/Globulin Ratio 0.5 L 11/03/20 08:40: Procalcitonin 0.22 H Micro: Microbiology 10/28/20 21:40 Blood Culture (Wb) #2 - Anticubital Right Blood Culture - Final No growth in 5 days. 10/28/20 13:45 Blood Culture (Wb) - Anticubital Left Blood Culture - Final No growth in 5 days. 10/28/20 11:55 Mucosa - Nose SARS-CoV-2 Antigen (Rapid) - Final SARS-CoV-2 (COVID 19) 10/28/20 11:55 Mucosa - Nose Influenza Types A,B Direct FA (KENNY) - Final Radiography Diagnostic Testing: Radiology Impression Chest CTA 11/03/20 06:55 IMPRESSION: No evidence of pulmonary embolism. Diffuse bilateral alveolar groundglass appearance which has progressed as compared to prior study. Pneumonitis secondary to Covid19 should be ruled out. Electronically Signed: Cole Kumar MD at 8:46 EDT , Service support , Physical Exam Const alert and no apparent distress General Appearance: cooperative HEENT normocephalic and head/scalp atraumatic Eyes PERRL, EOMs intact bilaterally and conjunctivae normal Neck supple General: trachea midline Resp normal respiratory effort Auscultation: diminished lung sounds; Negative for rales, rhonchi or wheezes Cardio regular rate and regular rhythm GI normal to inspection, nondistended, normoactive bowel sounds Extremity General Extremity: amputation; Negative for clubbing or edema Neuro CN's II-XII intact bilaterally and no focal motor deficits Psych cooperative and affect normal Charges/Coding Visit Charges Inpatient E&M: 75681 Subs Hosp L3
[2020-11-04] MEDS: Heparin Injection (Vial) 5,000 UNIT/ML VIAL 5000 UNIT SC ×3 (05:48→21:15)
--- NOTE | 2020-11-04 07:20 | PN.HOSP_ITS ---
Subjective Subjective Patient seen and examined. He was transferred to the ICU yesterday due to concerns about deterioration from respiratory standpoint. He feels his breathing is better, and is now down to FkO2 of 78% on AirVO. He is however noted to desaturate rapidly when removed from high flow oxygen. He has no other complaints and review of systems is otherwise negative. Objective Data Objective Data Vital Signs: Vital Signs Temp Pulse Resp BP Pulse Ox 97.9 F 98 18 113/85 H 95 11/04/20 01:00 11/04/20 06:00 11/04/20 06:00 11/04/20 01:00 11/04/20 05:18 Oxygen Flow Rate (L/min) 55 Oxygen Delivery Method Airvo Weight: 172 lb 2.896 oz Body Mass Index (BMI) 27.6 Intake & Output: Intake and Output for Last 24 Hours 11/02/20 11/03/20 11/04/20 23:59 23:59 23:59 Intake Total 500 / 500 250 / 250 100 / 100 Output Total 1775 / 1775 1175 / 1275 500 / 500 Balance -1275 / -1275 -925 / -1025 -400 / -400 Medical Nutrition Assessment Dietitian: Nutrition Therapy Diagnosis Start: 10/29/20 11:27 Freq: Status: Active Protocol: Document 11/03/20 12:04 BP (Rec: 11/03/20 12:04 BP [id number]) Nutrition Malnutrition Evidence of Malnutrition Exists Yes Malnutrition (moderate): Acute Illness/Injury Evidenced By Suboptimal Energy Intake ( Severe),Weight Loss (Moderate) Clinical Problem Acute Disease or Injury Related Malnutrition Etiology Moderate malnutrition in the context of acute illness related to inadequate oral intake Signs/Symptoms as evidenced by 5% wt loss x 1 month, </=50% energy intake compared to estimated energy needs x 5 days prior to admission, and continued poor oral intake since admission 10/28. Status Active Problem Recommendation Dietitian Recommendations/Changes Will continue liberalized Regular low sodium, diet w/ easy to chew consistency per COLLOID MILL OPERATOR Will continue to provide 120 ml ensure enlive w/ meals. Will provide ensure pudding/ magic cup with pt meals for additional siddhartha/protein if consumed. Lab / Micro Data Result Diagrams: 11/03/20 06:26 11/03/20 06:26 Labs: Laboratory Results - last 24 hr 11/03/20 08:40: Procalcitonin 0.22 H Micro: Microbiology 10/28/20 21:40 Blood Culture (Wb) #2 - Anticubital Right Blood Culture - Final No growth in 5 days. 10/28/20 13:45 Blood Culture (Wb) - Anticubital Left Blood Culture - Final No growth in 5 days. 10/28/20 11:55 Mucosa - Nose SARS-CoV-2 Antigen (Rapid) - Final SARS-CoV-2 (COVID 19) 10/28/20 11:55 Mucosa - Nose Influenza Types A,B Direct FA (KENNY) - Final Radiography Diagnostic Testing: Radiology Impression Chest CTA 11/03/20 06:55 IMPRESSION: No evidence of pulmonary embolism. Diffuse bilateral alveolar groundglass appearance which has progressed as compared to prior study. Pneumonitis secondary to Covid19 should be ruled out. Electronically Signed: Cole Kumar MD at 8:46 EDT , Service support , Physical Exam Const alert, oriented x3 and no apparent distress General Appearance: cooperative, well kempt and well developed Orientation / Consciousness: awake, oriented to person, oriented to place and oriented to time Exam Limitations: no limitations HEENT normocephalic, head/scalp atraumatic and moist oral mucous membranes Head and Scalp: normocephalic Eyes PERRL, EOMs intact bilaterally and conjunctivae normal Neck nuchal rigidity, no lymphadenopathy, supple, no JVD, thyroid normal and no carotid bruits General: trachea midline Resp Resp Narrative: diminished breath sounds bilaterally, bilateral crackles, no wheezing. now on 48% Fi02, tachypneic Auscultation: Negative for rales, rhonchi or wheezes Cardio regular rate, regular rhythm, S1 normal heart sound, S2 normal heart sound and no murmurs GI normal to inspection, nondistended, normoactive bowel sounds, soft to palpation, non-tender and non-distended Extremity normal to inspection, full ROM and no clubbing, cyanosis or edema Peripheral Pulses: Yes pulses 2+ throughout Skin no rashes or lesions noted General Skin Exam: no breakdown Neuro oriented x3, CN's II-XII intact bilaterally, no focal motor deficits and no sensory deficits noted Sensorium / Orientation: awake and alert Speech: speech normal Psych thought process normal and affect normal Assessment & Plan Assessment/Plan (1) Pneumonia due to COVID-19 virus: (2) Acute and chronic respiratory failure with hypoxia: (3) Acute kidney injury: PLAN: #Acute hypoxic respiratory failure due to COVID 19 infection * repeat CT of the chest showed diffuse bilateral alveolar groundglass appearance which had worsened compared to previous imaging * on remdesivir and decadrone * now on 48% Fi02 via AirVO * titrate oxygen to maintain sats >90% * to isolate for 20 days from onset of symptoms * patient had the Gil and Gil vaccine previously * TOcilizumab ordered for patient. * ID on board * #WOJCIECH: resolved. Cr has trended up slightly to 1.46 today. #Acute non anion gap metabolic acidosis * likely due to WOJCIECH * resolved. * DVT prophylaxis: on heparin. Charges/Coding Visit Charges Inpatient E&M: 88607 Subs Hosp L3
[2020-11-04] MEDS: dexAMETHasone 4 MG Tablet 6 MG PO (08:59)
[2020-11-04] MEDS: 0.9% Saline Lock 10 ML Syringe IV (10:27)
--- NOTE | 2020-11-04 14:39 | PCM.PN.ID ---
Physical Exam Narrative Feeling a little better, still SOB, no fever Const alert General Appearance: cooperative Resp clear to auscultation bilaterally Auscultation: diminished lung sounds Cardio regular rate and regular rhythm GI normal to inspection, nondistended, normoactive bowel sounds Skin no rashes or lesions noted ID ID: Route of nutrition/ use of supplements: [] Nutritional Intake: [] IV Site: [] Geller Catheter: [] Assessment & Plan Assessment/Plan (1) Acute kidney injury: (2) COVID-19: PLAN: Sx started 10/24/20. Has been vaccinated. WOJCIECH improved. On dex for 10 day course, also started remdesivir. Quarantine for 20 days from start of symptoms. Now with worsening O2, ordered tocilizumab but not clear when it will be available. Will follow (3) Hypoxemia:
--- NOTE | 2020-11-04 15:30 | PCM.PN.REN ---
Subjective Subjective Following for acute kidney injury. The patient was moved to the ICU yesterday because of worsening pulmonary infiltrate. He denies chest pain or increasing shortness of breath. There has been no edema. He denies nausea, vomiting or diarrhea. Objective Data Objective Data Vital Signs: Vital Signs Temp Pulse Resp BP Pulse Ox 97.9 F 81 21 H 113/85 H 93 11/04/20 01:00 11/04/20 12:00 11/04/20 14:00 11/04/20 01:00 11/04/20 15:05 Oxygen Flow Rate (L/min) 60 Oxygen Delivery Method Airvo Weight: 78.1 kg Body Mass Index (BMI) 27.6 Intake & Output: Intake and Output for Last 24 Hours 11/02/20 11/03/20 11/04/20 23:59 23:59 23:59 Intake Total 500 / 500 250 / 250 380 / 380 Output Total 1775 / 1775 1175 / 1275 850 / 850 Balance -1275 / -1275 -925 / -1025 -470 / -470 Medical Nutrition Assessment Dietitian: Nutrition Therapy Diagnosis Start: 10/29/20 11:27 Freq: Status: Active Protocol: Document 11/04/20 09:43 AG (Rec: 11/04/20 09:44 AG [id number]) Nutrition Malnutrition Evidence of Malnutrition Exists Yes Malnutrition (moderate): Acute Illness/Injury Evidenced By Suboptimal Energy Intake ( Severe),Weight Loss (Moderate) Clinical Problem Acute Disease or Injury Related Malnutrition Etiology Moderate malnutrition in the context of acute illness related to inadequate energy intake Signs/Symptoms as evidenced by 5% wt loss x 1 month, </=50% energy intake compared to estimated energy needs x 5 days prior to admission, and continued poor oral intake since admission 10/28. Status Active Problem Recommendation Dietitian Recommendations/Changes Will continue regular/sodium restricted diet w/ easy to chew consistency per SCHOOL OFFICE MANAGER. Will continue to provide 120 ml ensure enlive and ensure pudding/magic cup with pt meals for additional calories/ protein if consumed. Lab / Micro Data Result Diagrams: 11/03/20 06:26 11/03/20 06:26 Micro: Microbiology 10/28/20 21:40 Blood Culture (Wb) #2 - Anticubital Right Blood Culture - Final No growth in 5 days. 10/28/20 13:45 Blood Culture (Wb) - Anticubital Left Blood Culture - Final No growth in 5 days. 10/28/20 11:55 Mucosa - Nose SARS-CoV-2 Antigen (Rapid) - Final SARS-CoV-2 (COVID 19) 10/28/20 11:55 Mucosa - Nose Influenza Types A,B Direct FA (KENNY) - Final Physical Exam Narrative General: No apparent distress. HEENT: Normocephalic, atraumatic. Mucous membrane moist. Heart: Normal S1, S2. No rubs or murmurs. Lungs: Clear to auscultation anteriorly. Abdomen: Normal bowel sound, soft, nontender, no guarding or rebound. Extremity: Status post right AKA. There is no left lower extremity edema. Assessment & Plan Assessment/Plan (1) Acute kidney injury: PLAN: Suspect WOJCIECH is prerenal from sepsis. Baseline serum creatinine is unknown as there are no previous laboratory tests for comparison prior to this admission. The patient denies prior history of CKD. Serum creatinine peaked at 10.0 mg/dL on 10/28/2020. Renal function had been stabilizing until 11/03/2020. The bump and serum creatinine between 11/02/2020 until 11/03/2020 may have been due to diuresis. Lasix has been put on hold. However, if respiratory distress increases, I am okay with restarting Lasix later today or tomorrow. I will continue to monitor renal function. There was no renal labs to review today. We will order renal function panel for tomorrow. (2) Hypertension: PLAN: The patient had been on lisinopril at 20 mg/day at home prior to admission. Lisinopril was on hold because of acute kidney injury. BP is under reasonable control despite not being on lisinopril. (3) Metabolic acidosis: PLAN: Serum bicarbonate level has stabilized. Serum bicarbonate levels as low as 14 mmol/L on 10/30/2020. Serum bicarbonate level is most recently 22 mmol/L on 11/03/2020. We will continue to monitor since renal function is still fluctuating. (4) Pneumonia due to COVID-19 virus: PLAN: The patient is on remdesivir. Management as per hospital medicine and pulmonary service. The patient is being moved to ICU for closer monitoring because of worsening pulmonary infiltrate.
[2020-11-05] VITALS (9 sets, daily range): BP systolic 105–143; BP diastolic 81–86; PULSE 78–88; RESP 16–22; TEMP 36.6–36.7; O2SAT 91–98
[2020-11-05] MEDS: Heparin Injection (Vial) 5,000 UNIT/ML VIAL 5000 UNIT SC ×3 (05:36→20:07)
[2020-11-05] MEDS: 0.9% Saline Lock 10 ML Syringe IV (05:37)
--- NOTE | 2020-11-05 05:50 | PN.CC_ITS ---
Assessment & Plan Assessment/Plan (1) COVID-19: PLAN: RECOMMENDATIONS: 1. Continue remdesivir and Decadron as ordered to complete treatment courses. 2. Continue to wean FiO2 to maintain oxygen saturations at or above 90%. 3. Recheck BMP this morning. 4. Encourage incentive spirometer use and mobilize patient as tolerated. IMPRESSIONS: 1. Acute hypoxemic respiratory failure secondary to COVID-19 pneumonia Plan to continue current supportive measures including supplemental oxygen to maintain saturations at or above 90%. Continue Decadron to complete 10-day treatment course. Given improvement in renal status, the patient was initiated on remdesivir, which will be continued per ID recommendations. Encourage incentive spirometer use and mobilize patient as tolerated. 2. Acute kidney injury Resolved. Creatinine has improved with volume expansion. Etiology for WOJCIECH is likely prerenal in nature. Nephrology is currently following. This note was generated with [employer] dictation software. It may contain incorrect words, spelling, and punctuation that were not noted in checking the note before signing. Subjective Subjective The patient was seen and examined at the bedside this morning. Events from the last 24 hours have been reviewed. The patient is currently afebrile, hemodynamically stable and maintaining appropriate oxygen saturations on Airvo heated high flow with an FiO2 requirement of 45% and flow rate of 50 L/min. The patient is overall net +3.8 L for the hospital admission. No overnight issues were identified by the nursing staff. Lab personnel did attempt to draw his blood this morning but were unsuccessful. Objective Data Objective Data The patient's most recent lab work, culture data and imaging studies have all been personally reviewed. Rapid coronavirus antigen testing was positive on October 28. Blood cultures have not demonstrated any growth to date. Vital Signs: Vital Signs Temp Pulse Resp BP Pulse Ox 97.9 F 79 22 H 105/82 H 98 11/05/20 04:00 11/05/20 05:02 11/05/20 05:02 11/05/20 04:00 11/05/20 05:02 Oxygen Flow Rate (L/min) 45 Oxygen Delivery Method Airvo Weight: 78.5 kg Body Mass Index (BMI) 27.6 Intake & Output: Intake and Output for Last 24 Hours 11/03/20 11/04/20 11/05/20 23:59 23:59 23:59 Intake Total 250 / 250 930 / 1330 880 / 880 Output Total 1175 / 1275 1200 / 1600 700 / 700 Balance -925 / -1025 -270 / -270 180 / 180 Medical Nutrition Assessment Dietitian: Nutrition Therapy Diagnosis Start: 10/29/20 11:27 Freq: Status: Active Protocol: Document 11/04/20 09:43 AG (Rec: 11/04/20 09:44 AG [id number]) Nutrition Malnutrition Evidence of Malnutrition Exists Yes Malnutrition (moderate): Acute Illness/Injury Evidenced By Suboptimal Energy Intake ( Severe),Weight Loss (Moderate) Clinical Problem Acute Disease or Injury Related Malnutrition Etiology Moderate malnutrition in the context of acute illness related to inadequate energy intake Signs/Symptoms as evidenced by 5% wt loss x 1 month, </=50% energy intake compared to estimated energy needs x 5 days prior to admission, and continued poor oral intake since admission 10/28. Status Active Problem Recommendation Dietitian Recommendations/Changes Will continue regular/sodium restricted diet w/ easy to chew consistency per MANAGER CASH. Will continue to provide 120 ml ensure enlive and ensure pudding/magic cup with pt meals for additional calories/ protein if consumed. Lab / Micro Data Attestation: I reviewed the patient's lab results. Result Diagrams: 11/03/20 06:26 11/03/20 06:26 Micro: Microbiology 10/28/20 21:40 Blood Culture (Wb) #2 - Anticubital Right Blood Culture - Final No growth in 5 days. 10/28/20 13:45 Blood Culture (Wb) - Anticubital Left Blood Culture - Final No growth in 5 days. 10/28/20 11:55 Mucosa - Nose SARS-CoV-2 Antigen (Rapid) - Final SARS-CoV-2 (COVID 19) 10/28/20 11:55 Mucosa - Nose Influenza Types A,B Direct FA (KENNY) - Final Physical Exam Const alert, oriented x3 and no apparent distress General Appearance: cooperative HEENT normocephalic and head/scalp atraumatic Eyes PERRL, EOMs intact bilaterally and conjunctivae normal Neck supple General: trachea midline Resp normal respiratory effort Auscultation: diminished lung sounds; Negative for rales, rhonchi or wheezes Cardio regular rate and regular rhythm GI normal to inspection, nondistended, normoactive bowel sounds Extremity General Extremity: amputation; Negative for clubbing or edema Neuro CN's II-XII intact bilaterally and no focal motor deficits Psych cooperative and affect normal Charges/Coding Visit Charges Inpatient E&M: 35115 Subs Hosp L2
[2020-11-05] MEDS: dexAMETHasone 4 MG Tablet 6 MG PO (09:01)
--- NOTE | 2020-11-05 12:05 | PCM.PN.REN ---
Subjective Subjective Following for acute kidney injury. The patient denies increasing shortness of breath or chest pain. There has been no nausea or vomiting. Appetite has been okay. Objective Data Objective Data Vital Signs: Vital Signs Temp Pulse Resp BP Pulse Ox 97.9 F 80 22 H 105/82 H 91 11/05/20 04:00 11/05/20 07:37 11/05/20 07:37 11/05/20 04:00 11/05/20 07:37 Oxygen Flow Rate (L/min) 50 Oxygen Delivery Method Airvo Weight: 78.5 kg Body Mass Index (BMI) 27.6 Intake & Output: Intake and Output for Last 24 Hours 11/03/20 11/04/20 11/05/20 23:59 23:59 23:59 Intake Total 250 / 250 930 / 1330 880 / 880 Output Total 1175 / 1275 1200 / 1600 700 / 700 Balance -925 / -1025 -270 / -270 180 / 180 Medical Nutrition Assessment Dietitian: Nutrition Therapy Diagnosis Start: 10/29/20 11:27 Freq: Status: Active Protocol: Document 11/05/20 09:49 AG (Rec: 11/05/20 09:49 AG [id number]) Nutrition Malnutrition Evidence of Malnutrition Exists Yes Malnutrition (moderate): Acute Illness/Injury Evidenced By Suboptimal Energy Intake ( Severe),Weight Loss (Moderate) Clinical Problem Acute Disease or Injury Related Malnutrition Etiology Moderate malnutrition in the context of acute illness related to inadequate energy intake Signs/Symptoms as evidenced by 5% wt loss x 1 month, </=50% energy intake compared to estimated energy needs x 5 days prior to admission, and continued poor oral intake since admission 10/28. Status Active Problem Recommendation Dietitian Recommendations/Changes Regular diet w/ easy to chew foods/cut up meats per MAJOR GIFTS DIRECTOR. Will continue to provide 120 ml ensure enlive and ensure pudding/magic cup with pt meals for additional calories/ protein if consumed. Lab / Micro Data Result Diagrams: 11/03/20 06:26 11/03/20 06:26 Micro: Microbiology 10/28/20 21:40 Blood Culture (Wb) #2 - Anticubital Right Blood Culture - Final No growth in 5 days. 10/28/20 13:45 Blood Culture (Wb) - Anticubital Left Blood Culture - Final No growth in 5 days. 10/28/20 11:55 Mucosa - Nose SARS-CoV-2 Antigen (Rapid) - Final SARS-CoV-2 (COVID 19) 10/28/20 11:55 Mucosa - Nose Influenza Types A,B Direct FA (KENNY) - Final Physical Exam Narrative General: No apparent distress. HEENT: Normocephalic, atraumatic. Mucous membrane moist. Heart: Normal S1, S2. No rubs or murmurs. Lungs: Clear to auscultation anteriorly. Abdomen: Normal bowel sound, soft, nontender, no guarding or rebound. Extremity: Status post right AKA. There is no left lower extremity edema. Assessment & Plan Assessment/Plan (1) Acute kidney injury: PLAN: Suspect WOJCIECH is prerenal from sepsis. Baseline serum creatinine is unknown as there are no previous laboratory tests for comparison prior to this admission. The patient denies prior history of CKD. Serum creatinine peaked at 10.0 mg/dL on 10/28/2020. Renal function had been stabilizing until 11/03/2020. There was a small rise in serum creatinine between 11/02/2020 until 11/03/2020 which may have been due to diuresis. Lasix has been put on hold. The patient appears to be euvolemic and not volume overloaded at this time. However, if respiratory distress increases, I am okay with restarting Lasix later today or tomorrow. I will continue to monitor renal function and volume status. There was no renal labs to review for the last 2 days. He has refused phlebotomy for lab draw. We will order renal function panel for tomorrow. (2) Hypertension: PLAN: The patient had been on lisinopril at 20 mg/day at home prior to admission. Lisinopril was on hold because of acute kidney injury. BP is under reasonable control despite not being on lisinopril. (3) Metabolic acidosis: PLAN: Serum bicarbonate level has stabilized. Serum bicarbonate levels as low as 14 mmol/L on 10/30/2020. Serum bicarbonate level is most recently 22 mmol/L on 11/03/2020. We will continue to monitor since renal function is still fluctuating. (4) Pneumonia due to COVID-19 virus: PLAN: The patient is on remdesivir. Management as per hospital medicine and pulmonary service. The patient is being moved to ICU for closer monitoring because of worsening pulmonary infiltrate.
--- NOTE | 2020-11-05 12:44 | PN.HOSP_ITS ---
Subjective Subjective Patient seen and examined. He had no complaints today and felt well. He has remained hemodynamically stable. Review of systems otherwise negative. Objective Data Objective Data Vital Signs: Vital Signs Temp Pulse Resp BP Pulse Ox 98.1 F 78 17 143/82 H 94 11/05/20 09:08 11/05/20 09:08 11/05/20 09:08 11/05/20 09:08 11/05/20 09:08 Oxygen Flow Rate (L/min) 50 Oxygen Delivery Method Airvo Weight: 173 lb 1.006 oz Body Mass Index (BMI) 27.6 Intake & Output: Intake and Output for Last 24 Hours 11/03/20 11/04/20 11/05/20 23:59 23:59 23:59 Intake Total 250 / 250 930 / 1330 1120 / 1120 Output Total 1175 / 1275 1200 / 1600 925 / 925 Balance -925 / -1025 -270 / -270 195 / 195 Medical Nutrition Assessment Dietitian: Nutrition Therapy Diagnosis Start: 10/29/20 11:27 Freq: Status: Active Protocol: Document 11/05/20 09:49 AG (Rec: 11/05/20 09:49 AG [id number]) Nutrition Malnutrition Evidence of Malnutrition Exists Yes Malnutrition (moderate): Acute Illness/Injury Evidenced By Suboptimal Energy Intake ( Severe),Weight Loss (Moderate) Clinical Problem Acute Disease or Injury Related Malnutrition Etiology Moderate malnutrition in the context of acute illness related to inadequate energy intake Signs/Symptoms as evidenced by 5% wt loss x 1 month, </=50% energy intake compared to estimated energy needs x 5 days prior to admission, and continued poor oral intake since admission 10/28. Status Active Problem Recommendation Dietitian Recommendations/Changes Regular diet w/ easy to chew foods/cut up meats per MANAGEMENT SERVICES TECHNICIAN. Will continue to provide 120 ml ensure enlive and ensure pudding/magic cup with pt meals for additional calories/ protein if consumed. Lab / Micro Data Result Diagrams: 11/03/20 06:26 11/03/20 06:26 Micro: Microbiology 10/28/20 21:40 Blood Culture (Wb) #2 - Anticubital Right Blood Culture - Final No growth in 5 days. 10/28/20 13:45 Blood Culture (Wb) - Anticubital Left Blood Culture - Final No growth in 5 days. 10/28/20 11:55 Mucosa - Nose SARS-CoV-2 Antigen (Rapid) - Final SARS-CoV-2 (COVID 19) 10/28/20 11:55 Mucosa - Nose Influenza Types A,B Direct FA (KENNY) - Final Physical Exam Const alert, oriented x3 and no apparent distress General Appearance: cooperative, well kempt and well developed Orientation / Consciousness: awake, oriented to person, oriented to place and oriented to time Exam Limitations: no limitations HEENT normocephalic, head/scalp atraumatic and moist oral mucous membranes Head and Scalp: normocephalic Eyes PERRL, EOMs intact bilaterally and conjunctivae normal Neck nuchal rigidity, no lymphadenopathy, supple, no JVD, thyroid normal and no carotid bruits General: trachea midline Resp normal respiratory effort, no retractions, no use of accessory muscles and clear to auscultation bilaterally Resp Narrative: diminished breath sounds bilaterally, bilateral crackles, no wheezing. now on 45% Fi02, tachypneic Auscultation: Negative for rales, rhonchi or wheezes Cardio regular rate, regular rhythm, S1 normal heart sound, S2 normal heart sound and no murmurs GI normal to inspection, nondistended, normoactive bowel sounds, soft to palpation, non-tender and non-distended Extremity normal to inspection, full ROM and no clubbing, cyanosis or edema Peripheral Pulses: Yes pulses 2+ throughout Skin no rashes or lesions noted General Skin Exam: no breakdown Neuro oriented x3, CN's II-XII intact bilaterally, no focal motor deficits and no sensory deficits noted Sensorium / Orientation: awake and alert Speech: speech normal Psych thought process normal and affect normal Assessment & Plan Assessment/Plan (1) Pneumonia due to COVID-19 virus: (2) Acute and chronic respiratory failure with hypoxia: (3) Acute kidney injury: PLAN: #Acute hypoxic respiratory failure due to COVID 19 infection * repeat CT of the chest showed diffuse bilateral alveolar groundglass appearance which had worsened compared to previous imaging * remains on remdesivir and decadrone * now on 45% Fi02 via AirVO * titrate oxygen to maintain sats >90% * to isolate for 20 days from onset of symptoms * is s/p Gil and Gil vaccine, though he says he doesnt know long ago he got it. * TOcilizumab ordered for patient. * ID on board * #WOJCIECH: resolved. . #Acute non anion gap metabolic acidosis * likely due to WOJCIECH * resolved. * DVT prophylaxis: on heparin. Charges/Coding Visit Charges Inpatient E&M: 44107 Subs Hosp L2
[2020-11-06] VITALS (12 sets, daily range): BP systolic 111–133; BP diastolic 79–87; PULSE 74–102; RESP 18–22; TEMP 36.1–36.8; O2SAT 90–97
[2020-11-06] MEDS: Heparin Injection (Vial) 5,000 UNIT/ML VIAL 5000 UNIT SC ×3 (02:02→21:50)
--- NOTE | 2020-11-06 06:33 | PCM.PN.INT ---
Assessment & Plan Assessment/Plan (1) COVID-19: PLAN: RECOMMENDATIONS: 1. Continue Decadron as ordered to complete treatment course. 2. Continue to wean FiO2 to maintain oxygen saturations at or above 90%. 3. Encourage incentive spirometer use and mobilize patient as tolerated. IMPRESSIONS: 1. Acute hypoxemic respiratory failure secondary to COVID-19 pneumonia Plan to continue current supportive measures including supplemental oxygen to maintain saturations at or above 90%. Continue Decadron to complete 10-day treatment course. The patient has since completed his treatment course of remdesivir. Encourage incentive spirometer use and mobilize patient as tolerated. Given improvement in renal function, consideration could be given to a trial of diuretic therapy today. 2. Acute kidney injury Resolved. Creatinine has improved with volume expansion. Etiology for WOJCIECH is likely prerenal in nature. Nephrology is currently following. This note was generated with [employer] dictation software. It may contain incorrect words, spelling, and punctuation that were not noted in checking the note before signing. Subjective Subjective The patient was seen and examined at the bedside this morning. Events from the last 24 hours have been reviewed. The patient is currently afebrile, hemodynamically stable and maintaining appropriate oxygen saturations on Airvo heated high flow with an FiO2 requirement of 40% and flow rate of 40 L/min. The patient is documented to be overall net +3.8 L for the hospital admission. Prior attempt to diurese the patient led to development of WOJCIECH. Creatinine has normalized at this time. Objective Data Objective Data The patient's most recent lab work, culture data and imaging studies have all been personally reviewed. Rapid coronavirus antigen testing was positive on October 28. Blood cultures have not demonstrated any growth to date. Vital Signs: Vital Signs Temp Pulse Resp BP Pulse Ox 97.0 F L 75 22 H 111/81 H 97 11/06/20 02:00 11/06/20 04:20 11/06/20 04:20 11/06/20 02:00 11/06/20 04:20 Oxygen Flow Rate (L/min) 40 Oxygen Delivery Method Airvo Weight: 78.5 kg Body Mass Index (BMI) 27.6 Intake & Output: Intake and Output for Last 24 Hours 11/04/20 11/05/20 11/06/20 23:59 23:59 23:59 Intake Total 930 / 1330 1730 / 1730 240 / 240 Output Total 1200 / 1600 1550 / 1550 250 / 250 Balance -270 / -270 180 / 180 -10 / -10 Medical Nutrition Assessment Dietitian: Nutrition Therapy Diagnosis Start: 10/29/20 11:27 Freq: Status: Active Protocol: Document 11/05/20 09:49 (Rec: 11/05/20 09:49 AG [id number]) Nutrition Malnutrition Evidence of Malnutrition Exists Yes Malnutrition (moderate): Acute Illness/Injury Evidenced By Suboptimal Energy Intake ( Severe),Weight Loss (Moderate) Clinical Problem Acute Disease or Injury Related Malnutrition Etiology Moderate malnutrition in the context of acute illness related to inadequate energy intake Signs/Symptoms as evidenced by 5% wt loss x 1 month, </=50% energy intake compared to estimated energy needs x 5 days prior to admission, and continued poor oral intake since admission 10/28. Status Active Problem Recommendation Dietitian Recommendations/Changes Regular diet w/ easy to chew foods/cut up meats per YARN MERCERIZER OPERATOR HELPER. Will continue to provide 120 ml ensure enlive and ensure pudding/magic cup with pt meals for additional calories/ protein if consumed. Lab / Micro Data Attestation: I reviewed the patient's lab results. Result Diagrams: 11/03/20 06:26 11/06/20 05:20 Micro: Microbiology 10/28/20 21:40 Blood Culture (Wb) #2 - Anticubital Right Blood Culture - Final No growth in 5 days. 10/28/20 13:45 Blood Culture (Wb) - Anticubital Left Blood Culture - Final No growth in 5 days. 10/28/20 11:55 Mucosa - Nose SARS-CoV-2 Antigen (Rapid) - Final SARS-CoV-2 (COVID 19) 10/28/20 11:55 Mucosa - Nose Influenza Types A,B Direct FA (KENNY) - Final Physical Exam Const alert, oriented x3 and no apparent distress General Appearance: cooperative HEENT normocephalic and head/scalp atraumatic Eyes PERRL, EOMs intact bilaterally and conjunctivae normal Neck supple General: trachea midline Resp normal respiratory effort Auscultation: diminished lung sounds; Negative for rales, rhonchi or wheezes Cardio regular rate and regular rhythm GI normal to inspection, nondistended, normoactive bowel sounds Extremity General Extremity: amputation; Negative for clubbing or edema Neuro CN's II-XII intact bilaterally and no focal motor deficits Psych cooperative and affect normal Charges/Coding Visit Charges Inpatient E&M: 25904 Subs Hosp L2
[2020-11-06 06:42] LABS: BUN 31 mg/dL (7-18); BUN/Creat Ratio 29.2 RATIO (10-20); Calcium,Total 8.6 mg/dL (8.5-10.1); Chloride 102 mmol/L (98-107); Creatinine, Serum 1.06 mg/dL (0.70-1.30); EST Glomerular Filtration Rate 74 mL/min (>60); Est Glom Filt Rate - Afr Amer 89 mL/min (>60); Estimated Creatinine Clearance 59.35 ml/min; Glucose 131 mg/dL (74-106); Phosphorus 3.1 mg/dL (2.5-4.9); Potassium 4.6 mmol/L (3.5-5.1); Sodium Level 133 mmol/L (136-145)
[2020-11-06] MEDS: dexAMETHasone 4 MG Tablet 6 MG PO (09:46)
--- NOTE | 2020-11-06 11:41 | PN.RENAL_ITS ---
Subjective Subjective Following for acute kidney injury. The patient remains on Airvo. However, he denies increasing shortness of breath. There is no chest pain, nausea, or vomiting. There is no increasing edema. Objective Data Objective Data Vital Signs: Vital Signs Temp Pulse Resp BP Pulse Ox 98.3 F 99 20 H 126/79 H 95 11/06/20 09:35 11/06/20 09:35 11/06/20 09:35 11/06/20 09:35 11/06/20 11:35 Oxygen Flow Rate (L/min) 7 Oxygen Delivery Method Nasal Cannula Weight: 78.5 kg Body Mass Index (BMI) 27.6 Intake & Output: Intake and Output for Last 24 Hours 11/04/20 11/05/20 11/06/20 23:59 23:59 23:59 Intake Total 930 / 1330 1730 / 1730 240 / 240 Output Total 1200 / 1600 1550 / 1550 250 / 250 Balance -270 / -270 180 / 180 -10 / -10 Medical Nutrition Assessment Dietitian: Nutrition Therapy Diagnosis Start: 10/29/20 1 1:27 Freq: Status: Active Protocol: Document 11/05/20 09:49 AG (Rec: 11/05/20 09:49 AG [id number]) Nutrition Malnutrition Evidence of Malnutrition Exists Yes Malnutrition (moderate): Acute Illness/Injury Evidenced By Suboptimal Energy Intake ( Severe),Weight Loss (Moderate) Clinical Problem Acute Disease or Injury Related Malnutrition Etiology Moderate malnutrition in the context of acute illness related to inadequate energy intake Signs/Symptoms as evidenced by 5% wt loss x 1 month, </=50% energy intake compared to estimated energy needs x 5 days prior to admission, and continued poor oral intake since admission 10/28. Status Active Problem Recommendation Dietitian Recommendations/Changes Regular diet w/ easy to chew foods/cut up meats per SUBSTATION OPERATOR HELPER. Will continue to provide 120 ml ensure enlive and ensure pudding/magic cup with pt meals for additional calories/ protein if consumed. Lab / Micro Data Result Diagrams: 11/03/20 06:26 11/06/20 05:20 Labs: Laboratory Results - last 24 hr 11/06/20 05:20: Sodium 133 L, Potassium 4.6, Chloride 102, Carbon Dioxide 25.0, BUN 31 H, Creatinine 1.06, Estim Creat Clear Calc 59.35, Est GFR (MDRD) Af Amer 89, Est GFR (MDRD) Non-Af 74, BUN/Creatinine Ratio 29.2 H, Glucose 131 H, Calcium 8.6, Phosphorus 3.1, Albumin 2.0 L Micro: Microbiology 10/28/20 21:40 Blood Culture (Wb) #2 - Anticubital Right Blood Culture - Final No growth in 5 days. 10/28/20 13:45 Blood Culture (Wb) - Anticubital Left Blood Culture - Final No growth in 5 days. 10/28/20 11:55 Mucosa - Nose SARS-CoV-2 Antigen (Rapid) - Final SARS-CoV-2 (COVID 19) 10/28/20 11:55 Mucosa - Nose Influenza Types A,B Direct FA (KENNY) - Final Physical Exam Narrative General: No apparent distress. HEENT: Normocephalic, atraumatic. Mucous membrane moist. Heart: Normal S1, S2. No rubs or murmurs. Lungs: Clear to auscultation anteriorly. Abdomen: Normal bowel sound, soft, nontender, no guarding or rebound. Extremity: Status post right AKA. There is no left lower extremity edema. Assessment & Plan Assessment/Plan (1) Acute kidney injury: PLAN: Suspect WOJCIECH was prerenal from sepsis. Serum creatinine peaked at 10.0 mg/dL on 10/28/2020. Renal function had been stabilizing until 11/03/2020. There was a small rise in serum creatinine between 11/02/2020 until 11/03/2020 which may have been due to diuresis. Lasix has been put on hold. The patient appears to be euvolemic and not volume overloaded at this time. Serum creatinine has continued to improve to 1.06 mg/dL today. At this point, he looks euvolemic. However, if there is respiratory distress, I am okay from the nephrology standpoint to restart Lasix. I will continue to monitor renal function and volume status. Recheck renal function panel tomorrow. (2) Hypertension: PLAN: The patient had been on lisinopril at 20 mg/day at home prior to admission. Lisinopril was on hold because of acute kidney injury. BP is under reasonable control despite not being on lisinopril. We will follow blood pressure off of lisinopril for now. (3) Metabolic acidosis: PLAN: Serum bicarbonate level has stabilized. Serum bicarbonate levels as low as 14 mmol/L on 10/30/2020. Serum bicarbonate level is most recently 25 mmol/L on 11/06/2020. We will continue to monitor since renal function is still fluctuating. (4) Pneumonia due to COVID-19 virus: PLAN: Management as per hospital medicine and pulmonary service.
--- NOTE | 2020-11-06 15:22 | PN.HOSP_ITS ---
Subjective Subjective Patient seen and examined. He still remains on air Vo. He thinks he is getting better and is frustrated at his prolonged stay in the hospital. He has no active complaints and review of systems otherwise negative. Objective Data Objective Data Vital Signs: Vital Signs Temp Pulse Resp BP Pulse Ox 97.2 F L 102 H 20 H 124/87 H 97 11/06/20 15:08 11/06/20 15:08 11/06/20 15:08 11/06/20 15:08 11/06/20 15:08 Oxygen Flow Rate (L/min) 5 Oxygen Delivery Method Nasal Cannula Weight: 173 lb 1.006 oz Body Mass Index (BMI) 27.6 Intake & Output: Intake and Output for Last 24 Hours 11/04/20 11/05/20 11/06/20 23:59 23:59 23:59 Intake Total 930 / 1330 1730 / 1730 480 / 480 Output Total 1200 / 1600 1550 / 1550 800 / 800 Balance -270 / -270 180 / 180 -320 / -320 Medical Nutrition Assessment Dietitian: Nutrition Therapy Diagnosis Start: 10/29/20 11:27 Freq: Status: Active Protocol: Document 11/05/20 09:49 AG (Rec: 11/05/20 09:49 AG [id number]) Nutrition Malnutrition Evidence of Malnutrition Exists Yes Malnutrition (moderate): Acute Illness/Injury Evidenced By Suboptimal Energy Intake ( Severe),Weight Loss (Moderate) Clinical Problem Acute Disease or Injury Related Malnutrition Etiology Moderate malnutrition in the context of acute illness related to inadequate energy intake Signs/Symptoms as evidenced by 5% wt loss x 1 month, </=50% energy intake compared to estimated energy needs x 5 days prior to admission, and continued poor oral intake since admission 10/28. Status Active Problem Recommendation Dietitian Recommendations/Changes Regular diet w/ easy to chew foods/cut up meats per FIELD MECHANIC/SITE LEAD. Will continue to provide 120 ml ensure enlive and ensure pudding/magic cup with pt meals for additional calories/ protein if consumed. Lab / Micro Data Result Diagrams: 11/03/20 06:26 11/06/20 05:20 Labs: Laboratory Results - last 24 hr 11/06/20 05:20: Sodium 133 L, Potassium 4.6, Chloride 102, Carbon Dioxide 25.0, BUN 31 H, Creatinine 1.06, Estim Creat Clear Calc 59.35, Est GFR (MDRD) Af Amer 89, Est GFR (MDRD) Non-Af 74, BUN/Creatinine Ratio 29.2 H, Glucose 131 H, Calcium 8.6, Phosphorus 3.1, Albumin 2.0 L Micro: Microbiology 10/28/20 21:40 Blood Culture (Wb) #2 - Anticubital Right Blood Culture - Final No growth in 5 days. 10/28/20 13:45 Blood Culture (Wb) - Anticubital Left Blood Culture - Final No growth in 5 days. 10/28/20 11:55 Mucosa - Nose SARS-CoV-2 Antigen (Rapid) - Final SARS-CoV-2 (COVID 19) 10/28/20 11:55 Mucosa - Nose Influenza Types A,B Direct FA (KENNY) - Final Physical Exam Const alert, oriented x3 and no apparent distress General Appearance: cooperative, well kempt and well developed Orientation / Consciousness: awake, oriented to person, oriented to place and oriented to time Exam Limitations: no limitations HEENT normocephalic, head/scalp atraumatic and moist oral mucous membranes Head and Scalp: normocephalic Eyes PERRL, EOMs intact bilaterally and conjunctivae normal Neck nuchal rigidity, no lymphadenopathy, supple, no JVD, thyroid normal and no carotid bruits General: trachea midline Resp normal respiratory effort, no retractions, no use of accessory muscles and clear to auscultation bilaterally Resp Narrative: diminished breath sounds bilaterally, bilateral crackles, no wheezing. now on 40% Fi02, still mildly tachypneic Auscultation: Negative for rales, rhonchi or wheezes Cardio regular rate, regular rhythm, S1 normal heart sound, S2 normal heart sound and no murmurs GI normal to inspection, nondistended, normoactive bowel sounds, soft to palpation, non-tender and non-distended Extremity normal to inspection, full ROM and no clubbing, cyanosis or edema Peripheral Pulses: Yes pulses 2+ throughout Skin no rashes or lesions noted General Skin Exam: no breakdown Neuro oriented x3, CN's II-XII intact bilaterally, moves all extremities, no focal motor deficits and no sensory deficits noted Sensorium / Orientation: awake and alert Speech: speech normal Psych thought process normal and affect normal Assessment & Plan Assessment/Plan (1) Pneumonia due to COVID-19 virus: (2) Acute and chronic respiratory failure with hypoxia: (3) Acute kidney injury: PLAN: #Acute hypoxic respiratory failure due to COVID 19 infection * still remains on AirVo, down to 40% FiO2. * has completed a course of remdesivir and decadrone * titrate oxygen to maintain sats >90% * ID on board * breathing treatment with bronchodilators. * #WOJCIECH: resolved. . #Acute non anion gap metabolic acidosis * likely due to WOJCIECH * resolved. * DVT prophylaxis: on heparin. Charges/Coding Visit Charges Inpatient E&M: 30682 Subs Hosp L2
[2020-11-06] MEDS: 0.9% Saline Lock 10 ML Syringe IV (21:49)
[2020-11-07] VITALS (15 sets, daily range): BP systolic 114–144; BP diastolic 70–98; PULSE 78–107; RESP 18–20; TEMP 36.3–36.7; O2SAT 6–100
[2020-11-07] MEDS: Heparin Injection (Vial) 5,000 UNIT/ML VIAL 5000 UNIT SC ×3 (05:30→21:44)
--- NOTE | 2020-11-07 09:19 | PCM.PN.REN ---
Subjective Subjective No worsening breathing. No N/V/D Objective Data Objective Data Vital Signs: Vital Signs Temp Pulse Resp BP Pulse Ox 97.4 F L 78 20 H 141/98 H 92 11/07/20 05:25 11/07/20 05:25 11/07/20 05:25 11/07/20 05:25 11/07/20 05:43 Oxygen Flow Rate (L/min) 3 Oxygen Delivery Method Nasal Cannula Weight: 78.5 kg Body Mass Index (BMI) 27.6 Intake & Output: Intake and Output for Last 24 Hours 11/05/20 11/06/20 11/07/20 23:59 23:59 23:59 Intake Total 1730 / 1730 960 / 960 150 / 150 Output Total 1550 / 1550 1000 / 1000 550 / 550 Balance 180 / 180 -40 / -40 -400 / -400 Medical Nutrition Assessment Dietitian: Nutrition Therapy Diagnosis Start: 10/29/20 11:27 Freq: Status: Active Protocol: Document 11/05/20 09:49 AG (Rec: 11/05/20 09:49 AG [id number]) Nutrition Malnutrition Evidence of Malnutrition Exists Yes Malnutrition (moderate): Acute Illness/Injury Evidenced By Suboptimal Energy Intake ( Severe),Weight Loss (Moderate) Clinical Problem Acute Disease or Injury Related Malnutrition Etiology Moderate malnutrition in the context of acute illness related to inadequate energy intake Signs/Symptoms as evidenced by 5% wt loss x 1 month, </=50% energy intake compared to estimated energy needs x 5 days prior to admission, and continued poor oral intake since admission 10/28. Status Active Problem Recommendation Dietitian Recommendations/Changes Regular diet w/ easy to chew foods/cut up meats per SEAMARK ADVANCED OPERATOR MAINTAINER. Will continue to provide 120 ml ensure enlive and ensure pudding/magic cup with pt meals for additional calories/ protein if consumed. Lab / Micro Data Result Diagrams: 11/03/20 06:26 11/06/20 05:20 Micro: Microbiology 10/28/20 21:40 Blood Culture (Wb) #2 - Anticubital Right Blood Culture - Final No growth in 5 days. 10/28/20 13:45 Blood Culture (Wb) - Anticubital Left Blood Culture - Final No growth in 5 days. 10/28/20 11:55 Mucosa - Nose SARS-CoV-2 Antigen (Rapid) - Final SARS-CoV-2 (COVID 19) 10/28/20 11:55 Mucosa - Nose Influenza Types A,B Direct FA (KENNY) - Final Physical Exam Narrative General: No apparent distress. HEENT: Normocephalic, atraumatic. Mucous membrane moist. Heart: Normal S1, S2. No rubs or murmurs. Lungs: Clear to auscultation anteriorly. Abdomen: Normal bowel sound, soft, nontender, no guarding or rebound. Extremity: Status post right AKA. There is no left lower extremity edema. Assessment & Plan Assessment/Plan (1) Acute kidney injury: PLAN: Suspect WOJCIECH was prerenal from sepsis. Serum creatinine peaked at 10.0 mg/dL on 10/28/2020. Renal function had been stabilizing until 11/03/2020. There was a small rise in serum creatinine between 11/02/2020 until 11/03/2020 which may have been due to diuresis. Lasix has been put on hold. The patient appears to be euvolemic and not volume overloaded at this time. Serum creatinine has continued to improve to 1.06 mg/dL as per yesterday lab. At this point, he looks euvolemic. However, if there is respiratory distress, I am okay from the nephrology standpoint to restart Lasix. I will continue to monitor renal function and volume status. Recheck renal function panel tomorrow. (2) Hypertension: PLAN: The patient had been on lisinopril at 20 mg/day at home prior to admission. Lisinopril was on hold because of acute kidney injury. BP is under reasonable control despite not being on lisinopril. We will follow blood pressure off of lisinopril for now. (3) Metabolic acidosis: PLAN: Serum bicarbonate level has stabilized. Serum bicarbonate levels as low as 14 mmol/L on 10/30/2020. Serum bicarbonate level is most recently 25 mmol/L on 11/06/2020. We will continue to monitor since renal function is still fluctuating. (4) Pneumonia due to COVID-19 virus: PLAN: Management as per hospital medicine and pulmonary service.
--- NOTE | 2020-11-07 12:23 | PN.HOSP_ITS ---
Subjective Subjective Patient seen and examined. He was transferred out of the ICU yesterday to the [facility] surg floor. He has been weaned of AirVO and was on 2L of oxygen at time of review. He felt much better and had no complaints. Review of systems was otherwise negative. He still does remain tachypneic and tachycardic. Objective Data Objective Data Vital Signs: Vital Signs Temp Pulse Resp BP Pulse Ox 98.0 F 107 H 20 H 144/94 H 93 11/07/20 11:20 11/07/20 11:20 11/07/20 11:20 11/07/20 11:20 11/07/20 11:20 Oxygen Flow Rate (L/min) [ 3 AMBULATING with Oxygen #2] Oxygen Flow Rate (L/min) [ 90 AMBULATING with Oxygen #3] Oxygen Flow Rate (L/min) 3 Oxygen Delivery Method Nasal Cannula Weight: 173 lb 1.006 oz Body Mass Index (BMI) 27.6 Intake & Output: Intake and Output for Last 24 Hours 11/05/20 11/06/20 11/07/20 23:59 23:59 23:59 Intake Total 1730 / 1730 960 / 960 150 / 150 Output Total 1550 / 1550 1000 / 1000 550 / 550 Balance 180 / 180 -40 / -40 -400 / -400 Medical Nutrition Assessment Dietitian: Malnutrition Criteria Met Start: 10/29/20 11:27 Freq: Status: Active Protocol: Document 11/05/20 09:49 AG (Rec: 11/05/20 09:49 AG [id number]) Nutrition Malnutrition Evidence of Malnutrition Exists Yes Malnutrition (moderate): Acute Illness/Injury Evidenced By Suboptimal Energy Intake ( Severe),Weight Loss (Moderate) Clinical Problem Acute Disease or Injury Related Malnutrition Etiology Moderate malnutrition in the context of acute illness related to inadequate energy intake Signs/Symptoms as evidenced by 5% wt loss x 1 month, </=50% energy intake compared to estimated energy needs x 5 days prior to admission, and continued poor oral intake since admission 10/28. Status Active Problem Recommendation Dietitian Recommendations/Changes Regular diet w/ easy to chew foods/cut up meats per CODING QUALITY COORDINATOR. Will continue to provide 120 ml ensure enlive and ensure pudding/magic cup with pt meals for additional calories/ protein if consumed. Lab / Micro Data Result Diagrams: 11/03/20 06:26 11/06/20 05:20 Micro: Microbiology 10/28/20 21:40 Blood Culture (Wb) #2 - Anticubital Right Blood Culture - Final No growth in 5 days. 10/28/20 13:45 Blood Culture (Wb) - Anticubital Left Blood Culture - Final No growth in 5 days. 10/28/20 11:55 Mucosa - Nose SARS-CoV-2 Antigen (Rapid) - Final SARS-CoV-2 (COVID 19) 10/28/20 11:55 Mucosa - Nose Influenza Types A,B Direct FA (KENNY) - Final Physical Exam Const alert, oriented x3 and no apparent distress General Appearance: cooperative, well kempt and well developed Orientation / Consciousness: awake, oriented to person, oriented to place and oriented to time Exam Limitations: no limitations HEENT normocephalic, head/scalp atraumatic and moist oral mucous membranes Head and Scalp: normocephalic Eyes PERRL, EOMs intact bilaterally and conjunctivae normal Neck nuchal rigidity, no lymphadenopathy, supple, no JVD, thyroid normal and no carotid bruits General: trachea midline Resp normal respiratory effort, no retractions, no use of accessory muscles and clear to auscultation bilaterally Resp Narrative: diminished breath sounds bilaterally, bilateral crackles, no wheezing. on 2L of oxygen by nasal canula. Auscultation: Negative for rales, rhonchi or wheezes Cardio regular rate, regular rhythm, S1 normal heart sound, S2 normal heart sound and no murmurs GI normal to inspection, nondistended, normoactive bowel sounds, soft to palpation, non-tender and non-distended Extremity normal to inspection, full ROM and no clubbing, cyanosis or edema Extremity Narrative: Right AKA Peripheral Pulses: Yes pulses 2+ throughout Skin no rashes or lesions noted General Skin Exam: no breakdown Neuro oriented x3, CN's II-XII intact bilaterally, moves all extremities, no focal motor deficits and no sensory deficits noted Sensorium / Orientation: awake and alert Speech: speech normal Psych thought process normal and affect normal Assessment & Plan Assessment/Plan (1) Pneumonia due to COVID-19 virus: (2) Acute and chronic respiratory failure with hypoxia: (3) Acute kidney injury: PLAN: #Acute hypoxic respiratory failure due to COVID 19 infection * now down to 2L of oxygen by nasal cannula * has completed a course of remdesivir and decadrone * titrate oxygen to maintain sats >90% * ID on board * breathing treatment with bronchodilators. * patient required up to 6L on walking pulse ox to maintain sats >90%; will therefore hold off on discharge today as he is still tachypneic, tachycardic * #WOJCIECH: resolved. . #Acute non anion gap metabolic acidosis * resolved. * DVT prophylaxis: on heparin. Charges/Coding Visit Charges Inpatient E&M: 36176 Subs Hosp L2
--- NOTE | 2020-11-07 13:17 | PCM.PN.INT ---
Assessment & Plan Assessment/Plan (1) COVID-19: PLAN: RECOMMENDATIONS: 1. Continue Decadron as ordered to complete treatment course. 2. Continue to wean FiO2 to maintain oxygen saturations at or above 90%. 3. Encourage incentive spirometer use and mobilize patient as tolerated. 4. Potential discharge if oxygen can be arranged. IMPRESSIONS: 1. Acute hypoxemic respiratory failure secondary to COVID-19 pneumonia Plan to continue current supportive measures including supplemental oxygen to maintain saturations at or above 90%. Continue Decadron to complete 10-day treatment course. The patient has since completed his treatment course of remdesivir. Encourage incentive spirometer use and mobilize patient as tolerated. Technically, patient could be discharged, but plans to go back to [place]. Unclear if patient would be able to be provided enough oxygen to make it for 6-hour road trip with the current demands. Defer to case management, but patient would only require 3 L nasal cannula during most of the drive. Patient would have to establish with a PCP/textile engraver back home to arrange for cessation of oxygen. 2. Acute kidney injury Resolved. Creatinine has improved with volume expansion. Etiology for WOJCIECH is likely prerenal in nature. Nephrology is currently following. This note was generated with [employer] dictation software. It may contain incorrect words, spelling, and punctuation that were not noted in checking the note before signing. Subjective Subjective Patient did well overnight. No acute issues were reported. Patient did have a walking oximetry and desaturated to 90% on 6 L nasal cannula. Patient overall feels subjectively unchanged compared to yesterday. No complaints of chest pain. Patient does have a cough that is intermittently productive. Objective Data Objective Data Vital Signs: Vital Signs Temp Pulse Resp BP Pulse Ox 36.7 C 107 H 20 H 144/94 H 93 11/07/20 11:20 11/07/20 11:20 11/07/20 11:20 11/07/20 11:20 11/07/20 11:20 Oxygen Flow Rate (L/min) [ 3 AMBULATING with Oxygen #2] Oxygen Flow Rate (L/min) [ 90 AMBULATING with Oxygen #3] Oxygen Flow Rate (L/min) 3 Oxygen Delivery Method Nasal Cannula Weight: 78.5 kg Body Mass Index (BMI) 27.6 Intake & Output: Intake and Output for Last 24 Hours 11/05/20 11/06/20 11/07/20 23:59 23:59 23:59 Intake Total 1730 / 1730 960 / 960 150 / 150 Output Total 1550 / 1550 1000 / 1000 550 / 550 Balance 180 / 180 -40 / -40 -400 / -400 Medical Nutrition Assessment Dietitian: Malnutrition Criteria Met Start: 10/29/20 11:27 Freq: Status: Active Protocol: Document 11/05/20 09:49 AG (Rec: 11/05/20 09:49 AG [id number]) Nutrition Malnutrition Evidence of Malnutrition Exists Yes Malnutrition (moderate): Acute Illness/Injury Evidenced By Suboptimal Energy Intake ( Severe),Weight Loss (Moderate) Clinical Problem Acute Disease or Injury Related Malnutrition Etiology Moderate malnutrition in the context of acute illness related to inadequate energy intake Signs/Symptoms as evidenced by 5% wt loss x 1 month, </=50% energy intake compared to estimated energy needs x 5 days prior to admission, and continued poor oral intake since admission 10/28. Status Active Problem Recommendation Dietitian Recommendations/Changes Regular diet w/ easy to chew foods/cut up meats per CUSTOMER RELATIONS CONSULTANT. Will continue to provide 120 ml ensure enlive and ensure pudding/magic cup with pt meals for additional calories/ protein if consumed. Lab / Micro Data Result Diagrams: 11/03/20 06:26 11/06/20 05:20 Micro: Microbiology 10/28/20 21:40 Blood Culture (Wb) #2 - Anticubital Right Blood Culture - Final No growth in 5 days. 10/28/20 13:45 Blood Culture (Wb) - Anticubital Left Blood Culture - Final No growth in 5 days. 10/28/20 11:55 Mucosa - Nose SARS-CoV-2 Antigen (Rapid) - Final SARS-CoV-2 (COVID 19) 10/28/20 11:55 Mucosa - Nose Influenza Types A,B Direct FA (KENNY) - Final Physical Exam Narrative Nasal cannula in place Const General Appearance: well developed HEENT moist oral mucous membranes Neck full ROM and no lymphadenopathy Chest inspection of chest normal Resp no use of accessory muscles Auscultation: diminished lung sounds; Negative for rales, rhonchi or wheezes Percussion: Negative for dullness Cardio S1 normal heart sound, S2 normal heart sound, no murmurs, no rub and no gallops no CVA tenderness Extremity Extremity Narrative: Right AKA General Extremity: Negative for cyanosis Skin Skin Narrative: Some ulcers of the lower extremities in various stages of healing, but none open or appearing infected General Skin Exam: dry skin Neuro moves all extremities Charges/Coding Visit Charges Inpatient E&M: 34799 Subs Hosp L2
--- NOTE | 2020-11-07 15:05 | CASEMGMT ---
WILIAM REDDY NOTE: Ambulatory pulse ox done this AM. Pt still requiring 6 L/M O2 w/ambulation/exertion and sats 90% w/the 6 L/M. Pt not ready for discharge today. Per Dr Ingram, she anticipates he will be ready for discharge tomorrow. Pt will most likely need oxygen @ discharge. Call placed to [facility] and spoke w/Rae. She states [facility] does have an office in [place], [place], and [facility] can service pt's Oxygen needs. She is aware pt will have a 3-4 hr ride home to [place], [place], when he is discharged and will need enough portable O2 delivered to pt's room to ensure he has enough O2 for his trip back home. The office in [place], [place], can deliver concentrator an additional portable tanks to pt's home. WILIAM REDDY placed call to pt's room to discuss discharge planning. Pt made aware Krista has an office in [place], [place], and he is agreeable to [facility]. WILIAM REDDY inquired if there is someone that could meet Krista @ his home on the day of discharge so oxygen can be delivered to his home so it is there for him when he arrives home. He states his sister, Kyleigh Naylor, lives next door, and will be able to get into his home. Her # is: [phone]. 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 Pt asks for someone to contact her when discharge plans are decided so she can make arrangements. [facility]'s #: [phone] Pt denies having any further questions/concerns re: discharge planning at this time and thanks WILIAM REDDY for assistance. Francisco J THOMPSON RN, CM
[2020-11-08 03:39] VITALS: BP 110/83; PULSE 102; RESP 18; TEMP 36.1; O2SAT 98
[2020-11-08] MEDS: Heparin Injection (Vial) 5,000 UNIT/ML VIAL 5000 UNIT SC ×3 (06:09→22:10)
[2020-11-08 07:18] LABS: Anion Gap 6 (5-15); BUN 29 mg/dL (7-18); BUN/Creat Ratio 23.8 RATIO (10-20); Calcium,Total 8.7 mg/dL (8.5-10.1); Chloride 99 mmol/L (98-107); Creatinine, Serum 1.22 mg/dL (0.70-1.30); EST Glomerular Filtration Rate 63 mL/min (>60); Est Glom Filt Rate - Afr Amer 76 mL/min (>60); Estimated Creatinine Clearance 51.57 ml/min; Glucose 114 mg/dL (74-106); Magnesium 1.8 mg/dL (1.6-2.6); Potassium 4.8 mmol/L (3.5-5.1); Sodium Level 131 mmol/L (136-145)
[2020-11-08 08:00] VITALS: O2SAT 98
--- NOTE | 2020-11-08 09:42 | PCM.PN.REN ---
Subjective Subjective less SOB. On NC 2l/min No nausea No vomiting Objective Data Objective Data Vital Signs: Vital Signs Temp Pulse Resp BP Pulse Ox 97.0 F L 102 H 18 110/83 H 98 11/08/20 03:39 11/08/20 03:39 11/08/20 03:39 11/08/20 03:39 11/08/20 08:00 Oxygen Flow Rate (L/min) [ 3 AMBULATING with Oxygen #2] Oxygen Flow Rate (L/min) [ 90 AMBULATING with Oxygen #3] Oxygen Flow Rate (L/min) 3 Oxygen Delivery Method Nasal Cannula Weight: 77.309 kg Body Mass Index (BMI) 27.6 Intake & Output: Intake and Output for Last 24 Hours 11/06/20 11/07/20 11/08/20 23:59 23:59 23:59 Intake Total 960 / 960 790 / 790 Output Total 1000 / 1000 900 / 900 650 / 650 Balance -40 / -40 -110 / -110 -650 / -650 Medical Nutrition Assessment Dietitian: Malnutrition Criteria Met Start: 10/29/20 11:27 Freq: Status: Active Protocol: Document 11/05/20 09:49 AG (Rec: 11/05/20 09:49 [id number]) Nutrition Malnutrition Evidence of Malnutrition Exists Yes Malnutrition (moderate): Acute Illness/Injury Evidenced By Suboptimal Energy Intake ( Severe),Weight Loss (Moderate) Clinical Problem Acute Disease or Injury Related Malnutrition Etiology Moderate malnutrition in the context of acute illness related to inadequate energy intake Signs/Symptoms as evidenced by 5% wt loss x 1 month, </=50% energy intake compared to estimated energy needs x 5 days prior to admission, and continued poor oral intake since admission 10/28. Status Active Problem Recommendation Dietitian Recommendations/Changes Regular diet w/ easy to chew foods/cut up meats per CARD GAME OPERATOR. Will continue to provide 120 ml ensure enlive and ensure pudding/magic cup with pt meals for additional calories/ protein if consumed. Lab / Micro Data Result Diagrams: 11/03/20 06:26 11/08/20 06:42 Labs: Laboratory Results - last 24 hr 11/08/20 06:42: Sodium 131 L, Potassium 4.8, Chloride 99, Carbon Dioxide 26.0, Anion Gap 6, BUN 29 H, Creatinine 1.22, Estim Creat Clear Calc 51.57, Est GFR (MDRD) Af Amer 76, Est GFR (MDRD) Non-Af 63, BUN/Creatinine Ratio 23.8 H, Glucose 114 H, Calcium 8.7, Phosphorus 3.0, Magnesium 1.8 Micro: Microbiology 10/28/20 21:40 Blood Culture (Wb) #2 - Anticubital Right Blood Culture - Final No growth in 5 days. 10/28/20 13:45 Blood Culture (Wb) - Anticubital Left Blood Culture - Final No growth in 5 days. 10/28/20 11:55 Mucosa - Nose SARS-CoV-2 Antigen (Rapid) - Final SARS-CoV-2 (COVID 19) 10/28/20 11:55 Mucosa - Nose Influenza Types A,B Direct FA (KENNY) - Final Physical Exam Narrative General: No apparent distress. HEENT: Normocephalic, atraumatic. Mucous membrane moist. Heart: Normal S1, S2. No rubs or murmurs. Lungs: Clear to auscultation anteriorly. Abdomen: Normal bowel sound, soft, nontender, no guarding or rebound. Extremity: Status post right AKA. There is no left lower extremity edema. Assessment & Plan Assessment/Plan (1) Acute kidney injury: PLAN: Suspect WOJCIECH was prerenal from sepsis. Serum creatinine peaked at 10.0 mg/dL on 10/28/2020. Renal function had been stabilizing until 11/03/2020. There was a small rise in serum creatinine between 11/02/2020 until 11/03/2020 which may have been due to diuresis. Lasix has been put on hold. The patient appears to be euvolemic and not volume overloaded at this time. Serum Cr is slightly higher at 1.22 mg/dl from 1/05 mg/dl . At this point, he looks euvolemic. However, if there is respiratory distress, I am okay from the nephrology standpoint to restart Lasix. Encouraged PO intake I will continue to monitor renal function and volume status. Recheck renal function panel tomorrow. (2) Hypertension: PLAN: The patient had been on lisinopril at 20 mg/day at home prior to admission. Lisinopril was on hold because of acute kidney injury. BP is under reasonable control despite not being on lisinopril. We will follow blood pressure off of lisinopril for now. (3) Metabolic acidosis: PLAN: Serum bicarbonate level has stabilized. Serum bicarbonate levels as low as 14 mmol/L on 10/30/2020. Serum bicarbonate level is most recently 26 mmol/L on 11/08/2020. We will continue to monitor since renal function is still fluctuating. (4) Pneumonia due to COVID-19 virus: PLAN: Management as per hospital medicine and pulmonary service On [place] this am.
--- NOTE | 2020-11-08 09:57 | PCM.PN.INT ---
Assessment & Plan Assessment/Plan (1) COVID-19: PLAN: RECOMMENDATIONS: 1. Complete Decadron 10 total days of Decadron. 2. Continue to wean FiO2 to maintain oxygen saturations at or above 90%. 3. Encourage incentive spirometer use and mobilize patient as tolerated. 4. Potential discharge if oxygen can be arranged. IMPRESSIONS: 1. Acute hypoxemic respiratory failure secondary to COVID-19 pneumonia Plan to continue current supportive measures including supplemental oxygen to maintain saturations at or above 90%. Continue Decadron to complete 10-day treatment course. The patient has since completed his treatment course of remdesivir. Encourage incentive spirometer use and mobilize patient as tolerated. Technically, patient could be discharged, but plans to go back to [place]. Unclear if patient would be able to be provided enough oxygen to make it for 6-hour road trip with the current demands. Defer to case management, but patient would only require 3 L nasal cannula during most of the drive. Patient would have to establish with a PCP/director of medicare back home to arrange for cessation of oxygen. Case management is working to see if oxygen can be provided prior to his arrival at home using his sister is a contact. 2. Acute kidney injury Resolved. Creatinine has improved with volume expansion. Etiology for WOJCIECH is likely prerenal in nature. Nephrology is currently following. This note was generated with [employer] dictation software. It may contain incorrect words, spelling, and punctuation that were not noted in checking the note before signing. Subjective Subjective Patient did well overnight. No acute issues were reported. Patient overall feels subjectively unchanged compared to previous. Discussed with case management and there has been a plan made for providing oxygen. Patient states he has a PCP, but cannot remember his name. Objective Data Objective Data Vital Signs: Vital Signs Temp Pulse Resp BP Pulse Ox 36.1 C L 102 H 18 110/83 H 98 11/08/20 03:39 11/08/20 03:39 11/08/20 03:39 11/08/20 03:39 11/08/20 08:00 Oxygen Flow Rate (L/min) [ 3 AMBULATING with Oxygen #2] Oxygen Flow Rate (L/min) [ 90 AMBULATING with Oxygen #3] Oxygen Flow Rate (L/min) 3 Oxygen Delivery Method Nasal Cannula Weight: 77.309 kg Body Mass Index (BMI) 27.6 Intake & Output: Intake and Output for Last 24 Hours 11/06/20 11/07/20 11/08/20 23:59 23:59 23:59 Intake Total 960 / 960 790 / 790 Output Total 1000 / 1000 900 / 900 650 / 650 Balance -40 / -40 -110 / -110 -650 / -650 Medical Nutrition Assessment Dietitian: Malnutrition Criteria Met Start: 10/29/20 11:27 Freq: Status: Active Protocol: Document 11/05/20 09:49 AG (Rec: 11/05/20 09:49 AG [id number]) Nutrition Malnutrition Evidence of Malnutrition Exists Yes Malnutrition (moderate): Acute Illness/Injury Evidenced By Suboptimal Energy Intake ( Severe),Weight Loss (Moderate) Clinical Problem Acute Disease or Injury Related Malnutrition Etiology Moderate malnutrition in the context of acute illness related to inadequate energy intake Signs/Symptoms as evidenced by 5% wt loss x 1 month, </=50% energy intake compared to estimated energy needs x 5 days prior to admission, and continued poor oral intake since admission 10/28. Status Active Problem Recommendation Dietitian Recommendations/Changes Regular diet w/ easy to chew foods/cut up meats per [employer]. Will continue to provide 120 ml ensure enlive and ensure pudding/magic cup with pt meals for additional calories/ protein if consumed. Lab / Micro Data Result Diagrams: 11/03/20 06:26 11/08/20 06:42 Labs: Laboratory Results - last 24 hr 11/08/20 06:42: Sodium 131 L, Potassium 4.8, Chloride 99, Carbon Dioxide 26.0, Anion Gap 6, BUN 29 H, Creatinine 1.22, Estim Creat Clear Calc 51.57, Est GFR (MDRD) Af Amer 76, Est GFR (MDRD) Non-Af 63, BUN/Creatinine Ratio 23.8 H, Glucose 114 H, Calcium 8.7, Phosphorus 3.0, Magnesium 1.8 Micro: Microbiology 10/28/20 21:40 Blood Culture (Wb) #2 - Anticubital Right Blood Culture - Final No growth in 5 days. 10/28/20 13:45 Blood Culture (Wb) - Anticubital Left Blood Culture - Final No growth in 5 days. 10/28/20 11:55 Mucosa - Nose SARS-CoV-2 Antigen (Rapid) - Final SARS-CoV-2 (COVID 19) 10/28/20 11:55 Mucosa - Nose Influenza Types A,B Direct FA (KENNY) - Final Physical Exam Narrative Nasal cannula in place Const General Appearance: well developed HEENT moist oral mucous membranes Neck full ROM and no lymphadenopathy Chest inspection of chest normal Resp no use of accessory muscles Auscultation: diminished lung sounds; Negative for rales, rhonchi or wheezes Percussion: Negative for dullness Cardio S1 normal heart sound, S2 normal heart sound, no murmurs, no rub and no gallops no CVA tenderness Extremity Extremity Narrative: Right AKA General Extremity: Negative for cyanosis Skin Skin Narrative: Some ulcers of the lower extremities in various stages of healing, but none open or appearing infected General Skin Exam: dry skin Neuro moves all extremities Neuro Narrative: Much better mentation today compared to yesterday. Nonfocal exam Charges/Coding Visit Charges Inpatient E&M: 29127 Subs Hosp L2
[2020-11-08 10:08] VITALS: BP 114/64; PULSE 115; RESP 18; TEMP 36.7; O2SAT 94
[2020-11-08 10:16] VITALS: O2SAT 84; O2SAT 87; O2SAT 96
--- NOTE | 2020-11-08 10:16 | CASEMGMT ---
Addendum entered by Kathryn Biggs 11/09/20 09:45: 11/08/20 @ 1330: Dr Ingram inquiring if pt may need SNF @ discharge. WILIAM REDDY to pt's room to discuss discharge planning w/pt. Pt states he wants to return home and does not want to go to a SNF. Pt states he feels he is strong enough to return home and feels he will be safe and able to take care of himself. Discussed HHC. Pt states he is interested in HHC. 1515: Call placed to Joyce Mccarty, triage nurse @ pt's PCP's office. She was made aware pt is interested in HHC but will be COVID quarantined until 11/13. Per Joyce, pt has not had an appt w/PCP since 05/13/20 and that was a telephone visit. She also states pt's TICKET MACHINE OPERATOR, Estrellita Soto, who pt usually sees is on vacation for another week and is not available to ask if she would be willing to follow pt for HHC. Per Joyce, she states pt would need to be seen by MD @ their office before HHC can be approved. Appt made for pt w/Dr Soto @ [facility] in [place], [place] for 11/14/20 @ 11AM. Pt to arrive @ 10:45. Pt made aware of appt date/time and made aware HHC would not be able to be set up until he goes to that appt. He voices understanding. He states he will have transportation to the appt. Joyce asks for d/c summary and instructions be faxed to her @ [facility] upon pt's discharge. Fax # is: [phone]. Original Note: WILIAM REDDY NOTE: Call placed to pt's employer, [employer], @ [phone]. msg received Welcome to our Voicemail system w/all options selected. VM left for return call. Pt made aware only VM received @ above # and he provided another # to try: Alfred, glass cut off supervisor, @ [phone]. Call placed to Alfred. He confirms they will arrange for transportation for pt to return home once pt is medically ready to discharge. He was made aware that pt will still be in quarantine for COVID until 11/13/20. Per Dr Irby, he is recommending pt f/u with [employer] near pt's hometown, once he returns home. Pt states he does not remember the name of his PCP, but states he sees someone @ [facility] in [place], [place] on [address]. Phone number found on-line to a physician's office @ this location. Spoke w/nurse Tuyet. She confirms pt is active w/[facility] and pt sees TICKET MACHINE OPERATOR, Estrellita Soto. Md is Dr Torres. Tuyet made aware anticipate pt will need oxygen when is discharged from the hospital and this will be set up by [facility]. She was made aware [facility] carry in worker is recommending pt f/u with a carry in worker once he returns to [place]. She states pt will need to see PCP first and then they can make referral. Pt made aware of same. [facility]: PH: [phone]. . Call placed to registration and they were provided w/PCP's above info and will update demographics. Call placed to pt's sister, Kyleigh. She states she does not have a johnson to get into pt's home at this time, but will try and get one from his daughter so she can make arrangements w/[facility] to meet them @ pt's home so home O2 can be set up prior to pt's arrival, so it is there when he arrives home. She is aware pt is not medically ready to be discharged today and [facility] would not be delivering O2 to pt's home until the day pt is discharged from the hospital. Call placed to [facility] and spoke w/Hakeem. She states [facility] office # in [place], [place] that would service pt's area is [phone] and this is the # Kyleigh should call when making arrangements for home O2 delivery to pt's home. Francisco J BSN RN CM
[2020-11-08 14:19] VITALS: BP 110/65; PULSE 107; RESP 18; TEMP 36.8; O2SAT 96
--- NOTE | 2020-11-08 15:05 | PN.HOSP_ITS ---
Subjective Subjective Patient seen and examined. He is feeling better. Shortness of breath is improved. He is just on 2 L of oxygen. Review of systems is otherwise negative. He did not do very well with walking pulse ox yesterday hence he was not discharged. He has remained hemodynamically stable. Objective Data Objective Data Vital Signs: Vital Signs Temp Pulse Resp BP Pulse Ox 98.2 F 107 H 18 110/65 96 11/08/20 14:19 11/08/20 14:19 11/08/20 14:19 11/08/20 14:19 11/08/20 14:19 Oxygen Flow Rate (L/min) [ 3 AMBULATING with Oxygen #2] Oxygen Flow Rate (L/min) [ 4 AMBULATING with Oxygen #3] Oxygen Flow Rate (L/min) 2 Oxygen Delivery Method Nasal Cannula Weight: 170 lb 7 oz Body Mass Index (BMI) 27.6 Intake & Output: Intake and Output for Last 24 Hours 11/06/20 11/07/20 11/08/20 23:59 23:59 23:59 Intake Total 960 / 960 790 / 790 Output Total 1000 / 1000 900 / 900 950 / 950 Balance -40 / -40 -110 / -110 -950 / -950 Medical Nutrition Assessment Dietitian: Malnutrition Criteria Met Start: 10/29/20 11:27 Freq: Status: Active Protocol: Document 11/08/20 12:10 RMA (Rec: 11/08/20 12:10 RMA [id number]) Nutrition Malnutrition Evidence of Malnutrition Exists Yes Malnutrition (moderate): Acute Illness/Injury Evidenced By Suboptimal Energy Intake ( Severe),Weight Loss (Moderate) Clinical Problem Acute Disease or Injury Related Malnutrition Etiology Moderate malnutrition in the context of acute illness related to inadequate energy intake Signs/Symptoms as evidenced by 5% wt loss x 1 month, </=50% energy intake compared to estimated energy needs x 5 days prior to admission, currently taking~50 % of meals. Status Active Problem Recommendation Dietitian Recommendations/Changes Continue Regular diet and will change solid food texture to regular, continue thin liquids as ordered. 120ml strawberry ensure enlive BID w/ break & dinner and magic cup w/ lunch. Lab / Micro Data Result Diagrams: 11/03/20 06:26 11/08/20 06:42 Labs: Laboratory Results - last 24 hr 11/08/20 06:42: Sodium 131 L, Potassium 4.8, Chloride 99, Carbon Dioxide 26.0, Anion Gap 6, BUN 29 H, Creatinine 1.22, Estim Creat Clear Calc 51.57, Est GFR (MDRD) Af Amer 76, Est GFR (MDRD) Non-Af 63, BUN/Creatinine Ratio 23.8 H, Glucose 114 H, Calcium 8.7, Phosphorus 3.0, Magnesium 1.8 Micro: Microbiology 10/28/20 21:40 Blood Culture (Wb) #2 - Anticubital Right Blood Culture - Final No growth in 5 days. 10/28/20 13:45 Blood Culture (Wb) - Anticubital Left Blood Culture - Final No growth in 5 days. 10/28/20 11:55 Mucosa - Nose SARS-CoV-2 Antigen (Rapid) - Final SARS-CoV-2 (COVID 19) 10/28/20 11:55 Mucosa - Nose Influenza Types A,B Direct FA (KENNY) - Final Physical Exam Const alert, oriented x3 and no apparent distress General Appearance: cooperative, well kempt and well developed Orientation / Consciousness: awake, oriented to person, oriented to place and oriented to time Exam Limitations: no limitations HEENT normocephalic, head/scalp atraumatic and moist oral mucous membranes Head and Scalp: normocephalic Eyes PERRL, EOMs intact bilaterally and conjunctivae normal Neck nuchal rigidity, no lymphadenopathy, supple, no JVD, thyroid normal and no carotid bruits General: trachea midline Resp normal respiratory effort, no retractions, no use of accessory muscles and clear to auscultation bilaterally Resp Narrative: diminished breath sounds bilaterally, bilateral crackles, no wheezing. on 2L of oxygen by nasal canula. Auscultation: Negative for rales, rhonchi or wheezes Cardio regular rate, regular rhythm, S1 normal heart sound, S2 normal heart sound and no murmurs GI normal to inspection, nondistended, normoactive bowel sounds, soft to palpation, non-tender and non-distended Extremity normal to inspection, full ROM and no clubbing, cyanosis or edema Extremity Narrative: Right AKA Peripheral Pulses: Yes pulses 2+ throughout Skin no rashes or lesions noted General Skin Exam: no breakdown Neuro oriented x3, CN's II-XII intact bilaterally, moves all extremities, no focal motor deficits and no sensory deficits noted Sensorium / Orientation: awake and alert Speech: speech normal Psych thought process normal and affect normal Assessment & Plan Assessment/Plan (1) Pneumonia due to COVID-19 virus: (2) Acute and chronic respiratory failure with hypoxia: (3) Acute kidney injury: PLAN: #Acute hypoxic respiratory failure due to COVID 19 infection * now down to 2L of oxygen by nasal cannula * has completed a course of remdesivir and decadrone * titrate oxygen to maintain sats >90% * ID on board * breathing treatment with bronchodilators. * on walking pulse ox today, his saturation dropped to 87% on 4L of oxygen, and he became short of breath, with HR going into the 130s and he could only ambulate from bed to door. * not ready for discharge. * he has had [address] since admission. CTA on 11/03/2020 showed no evidence of PE. * DVT prophylaxis: on heparin. Disposition: for probable DC tomorrow Charges/Coding Visit Charges Inpatient E&M: 85929 Subs Hosp L2
[2020-11-08 21:55] VITALS: BP 113/76; PULSE 106; RESP 18; TEMP 36.4; O2SAT 94
[2020-11-09 05:34] VITALS: BP 93/67; PULSE 90; RESP 18; TEMP 36.8; O2SAT 96
[2020-11-09] MEDS: Heparin Injection (Vial) 5,000 UNIT/ML VIAL 5000 UNIT SC (05:39)
--- NOTE | 2020-11-09 09:30 | PCM.PN.REN ---
Subjective Subjective Patient has no acute events. Objective Data Objective Data Vital Signs: Vital Signs Temp Pulse Resp BP Pulse Ox 98.3 F 90 18 93/67 96 11/09/20 05:34 11/09/20 05:34 11/09/20 05:34 11/09/20 05:34 11/09/20 05:34 Oxygen Flow Rate (L/min) [ 3 AMBULATING with Oxygen #2] Oxygen Flow Rate (L/min) [ 4 AMBULATING with Oxygen #3] Oxygen Flow Rate (L/min) 2 Oxygen Delivery Method Nasal Cannula Weight: 77.5 kg Body Mass Index (BMI) 27.6 Intake & Output: Intake and Output for Last 24 Hours 11/07/20 11/08/20 11/09/20 23:59 23:59 23:59 Intake Total 790 / 790 360 / 360 Output Total 900 / 900 1200 / 1200 250 / 250 Balance -110 / -110 -1200 / -1200 110 / 110 Medical Nutrition Assessment Dietitian: Malnutrition Criteria Met Start: 10/29/20 11:27 Freq: Status: Active Protocol: Document 11/08/20 12:10 RMA (Rec: 11/08/20 12:10 RMA [id number]) Nutrition Malnutrition Evidence of Malnutrition Exists Yes Malnutrition (moderate): Acute Illness/Injury Evidenced By Suboptimal Energy Intake ( Severe),Weight Loss (Moderate) Clinical Problem Acute Disease or Injury Related Malnutrition Etiology Moderate malnutrition in the context of acute illness related to inadequate energy intake Signs/Symptoms as evidenced by 5% wt loss x 1 month, </=50% energy intake compared to estimated energy needs x 5 days prior to admission, currently taking~50 % of meals. Status Active Problem Recommendation Dietitian Recommendations/Changes Continue Regular diet and will change solid food texture to regular, continue thin liquids as ordered. 120ml strawberry ensure enlive BID w/ break & dinner and magic cup w/ lunch. Lab / Micro Data Result Diagrams: 11/03/20 06:26 11/08/20 06:42 Micro: Microbiology 10/28/20 21:40 Blood Culture (Wb) #2 - Anticubital Right Blood Culture - Final No growth in 5 days. 10/28/20 13:45 Blood Culture (Wb) - Anticubital Left Blood Culture - Final No growth in 5 days. 10/28/20 11:55 Mucosa - Nose SARS-CoV-2 Antigen (Rapid) - Final SARS-CoV-2 (COVID 19) 10/28/20 11:55 Mucosa - Nose Influenza Types A,B Direct FA (KENNY) - Final Physical Exam Narrative General: No apparent distress. HEENT: Normocephalic, atraumatic. Mucous membrane moist. Heart: Normal S1, S2. No rubs or murmurs. Lungs: Clear to auscultation anteriorly. Abdomen: Normal bowel sound, soft, nontender, no guarding or rebound. Extremity: Status post right AKA. There is no left lower extremity edema. Assessment & Plan Assessment/Plan (1) Acute kidney injury: PLAN: Suspect WOJCIECH was prerenal from sepsis. Serum creatinine peaked at 10.0 mg/dL on 10/28/2020. Renal function had been stabilizing until 11/03/2020. There was a small rise in serum creatinine between 11/02/2020 until 11/03/2020 which may have been due to diuresis. Lasix has been put on hold. The patient appears to be euvolemic and not volume overloaded at this time. Serum Cr is slightly higher at 1.22 mg/dl on November 08 from yesterday 1/05 mg/dl . No labs today. Check renal function panel tomorrow if remains inpatient At this point, he looks euvolemic. However, if there is respiratory distress, I am okay from the nephrology standpoint to restart Lasix. Encouraged PO intake I will continue to monitor renal function and volume status. Recheck renal function panel tomorrow. (2) Hypertension: PLAN: The patient had been on lisinopril at 20 mg/day at home prior to admission. Lisinopril was on hold because of acute kidney injury. BP is under reasonable control despite not being on lisinopril. We will follow blood pressure off of lisinopril for now. (3) Metabolic acidosis: PLAN: Serum bicarbonate level has stabilized. Serum bicarbonate levels as low as 14 mmol/L on 10/30/2020. Serum bicarbonate level is most recently 26 mmol/L on 11/08/2020. We will continue to monitor since renal function is still fluctuating. (4) Pneumonia due to COVID-19 virus: PLAN: Management as per hospital medicine and pulmonary service On [place] this am.
[2020-11-09 09:53] VITALS: BP 113/79; PULSE 114; RESP 16; TEMP 36.4; O2SAT 94
--- NOTE | 2020-11-09 09:53 | PCM.PN.INT ---
Assessment & Plan Assessment/Plan (1) COVID-19: PLAN: RECOMMENDATIONS: 1. Completed Decadron. No need for Decadron on discharge 2. Continue to wean FiO2 to maintain oxygen saturations at or above 90%. 3. Encourage incentive spirometer use and mobilize patient as tolerated. 4. Potential discharge if oxygen can be arranged. IMPRESSIONS: 1. Acute hypoxemic respiratory failure secondary to COVID-19 pneumonia Plan to continue current supportive measures including supplemental oxygen to maintain saturations at or above 90%. Continue Decadron to complete 10-day treatment course. The patient has since completed his treatment course of remdesivir. Encourage incentive spirometer use and mobilize patient as tolerated. Technically, patient could be discharged, but plans to go back to [place]. Logistic concerns about supplemental oxygen and exposure to Covid have limited ability to be discharged. Defer to case management, but patient would only require 3 L nasal cannula during most of the drive. Patient would have to establish with a PCP/photographer lithographic back home to arrange for cessation of oxygen. Case management is working to see if oxygen can be provided prior to his arrival at home using his sister is a contact. 2. Acute kidney injury Resolved. Creatinine has improved with volume expansion. Etiology for WOJCIECH is likely prerenal in nature. Nephrology is currently following. This note was generated with [employer] dictation software. It may contain incorrect words, spelling, and punctuation that were not noted in checking the note before signing. Subjective Subjective No issues reported over the last 24 hours. Patient was not discharged secondary to logistic issues with supplemental oxygen. No new complaints today. Objective Data Objective Data Vital Signs: Vital Signs Temp Pulse Resp BP Pulse Ox 36.8 C 90 18 93/67 96 11/09/20 05:34 11/09/20 05:34 11/09/20 05:34 11/09/20 05:34 11/09/20 05:34 Oxygen Flow Rate (L/min) [ 3 AMBULATING with Oxygen #2] Oxygen Flow Rate (L/min) [ 4 AMBULATING with Oxygen #3] Oxygen Flow Rate (L/min) 2 Oxygen Delivery Method Nasal Cannula Weight: 77.5 kg Body Mass Index (BMI) 27.6 Intake & Output: Intake and Output for Last 24 Hours 11/07/20 11/08/20 11/09/20 23:59 23:59 23:59 Intake Total 790 / 790 360 / 360 Output Total 900 / 900 1200 / 1200 250 / 250 Balance -110 / -110 -1200 / -1200 110 / 110 Medical Nutrition Assessment Dietitian: Malnutrition Criteria Met Start: 10/29/20 11:27 Freq: Status: Active Protocol: Document 11/08/20 12:10 RMA (Rec: 11/08/20 12:10 RMA [id number]) Nutrition Malnutrition Evidence of Malnutrition Exists Yes Malnutrition (moderate): Acute Illness/Injury Evidenced By Suboptimal Energy Intake ( Severe),Weight Loss (Moderate) Clinical Problem Acute Disease or Injury Related Malnutrition Etiology Moderate malnutrition in the context of acute illness related to inadequate energy intake Signs/Symptoms as evidenced by 5% wt loss x 1 month, </=50% energy intake compared to estimated energy needs x 5 days prior to admission, currently taking~50 % of meals. Status Active Problem Recommendation Dietitian Recommendations/Changes Continue Regular diet and will change solid food texture to regular, continue thin liquids as ordered. 120ml strawberry ensure enlive BID w/ break & dinner and magic cup w/ lunch. Lab / Micro Data Result Diagrams: 11/03/20 06:26 11/08/20 06:42 Micro: Microbiology 10/28/20 21:40 Blood Culture (Wb) #2 - Anticubital Right Blood Culture - Final No growth in 5 days. 10/28/20 13:45 Blood Culture (Wb) - Anticubital Left Blood Culture - Final No growth in 5 days. 10/28/20 11:55 Mucosa - Nose SARS-CoV-2 Antigen (Rapid) - Final SARS-CoV-2 (COVID 19) 10/28/20 11:55 Mucosa - Nose Influenza Types A,B Direct FA (KENNY) - Final Physical Exam Narrative Nasal cannula in place Const General Appearance: well developed HEENT moist oral mucous membranes Neck full ROM and no lymphadenopathy Chest inspection of chest normal Resp no use of accessory muscles Auscultation: diminished lung sounds; Negative for rales, rhonchi or wheezes Percussion: Negative for dullness Cardio S1 normal heart sound, S2 normal heart sound, no murmurs, no rub and no gallops no CVA tenderness Extremity Extremity Narrative: Right AKA General Extremity: Negative for cyanosis Skin Skin Narrative: Some ulcers of the lower extremities in various stages of healing, but none open or appearing infected General Skin Exam: dry skin Neuro moves all extremities Neuro Narrative: Much better mentation today compared to yesterday. Nonfocal exam Charges/Coding Visit Charges Inpatient E&M: 93721 Subs Hosp L1
[2020-11-09 09:55] VITALS: O2SAT 87; O2SAT 94
--- NOTE | 2020-11-09 10:32 | CASEMGMT ---
Addendum entered by Amaya Toro 11/09/20 14:38: RN BARRY spoke to pt nurse Lidia to make aware of dc plan with O2 and gave N95 masks to her. WILIAM REDDY in to pt room to make aware of all dc plans. Pt is aware of precautions while transporting, to call [facility] when he is almost home for delivery of concentrator, of his follow up appt on Saturday. Pt verbalizes understanding and denies any questions or concerns. Addendum entered by Amaya Toro 11/09/20 14:14: TC to [facility], spoke with Hakeem. Arrival of O2 should be shortly. She states that a tall portable tank should last approx 4-5 hours at 2L cont. Addendum entered by Amaya Toro 11/09/20 12:39: TC to [facility], Spoke with Kathy. She states that she will get a message to the [facility] regarding need for concentrator to be delivered tonight. She states to have pt call when close to home. She also will send a message to the [facility] as the phone call routed to her for transport O2. Addendum entered by Amaya Toro 11/09/20 12:12: Pt dtr also aware that she will be taught how to switch portable tanks over while traveling. Addendum entered by Amaya Toro 11/09/20 12:02: Pt qualifies for home O2, referral sent to [facility]. TC to pt sister Kyleigh to give phone number for [facility] in [place]. She took the number of [facility] but states that she does not have a johnson to the home and will not be able to get into the home for the O2 to be delivered prior to pt arrival. She also states that there is not a family member who can pick pt up to transport home. TC back to Alfred with pt employer. He states he just got off the phone with darius De Leon dtr, and she will be picking pt up today. He states he has prepaid for a rental car for her to picker. TC to pt dtr Haley [phone] who confirms that she is going to leave work at this time to picker rental car. Started to discuss with her precautions to take during the ride home. She states that she was not aware that her father had COVID 19. Made her aware that there are 4 N-95 masks for them to use on the way home. Instructed her to have her father sit as far away as possible in the car, roll the windows down some and to turn the recirculating button off. Also made her aware that when transport is complete to sanitize surfaces and wash hands. She verbalized understanding of all of these precautions. Original Note: Pt ready for dc today. 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 He will call this CM back as he thinks that pt family is transporting him.
--- NOTE | 2020-11-09 11:35 | PCM.DC.SUM ---
Providers Date of Admission: 10/28/20 Primary Care Physician: CHARLENE POOLE Consultations 10/28/20 16:36 Consult: Nephrology Routine Consulting Provider: Aliza Mccullough Reason for Consult: WOJCIECH, uremia EMERGENT Consult: No MD Notified: Yes Date Notified: 10/28/20 Time Notified: 18:04 Method of Notification: Answering Service 10/29/20 09:03 Consult: Cath Lab Radiological Technologist / Pulmonary Medicine Routine Consulting Provider: Pulmonary Medicine grady [place] Reason for Consult: hypoxia EMERGENT Consult: No MD Notified: Yes Date Notified: 10/29/20 Time Notified: 09:03 Method of Notification: Verbal 10/31/20 07:40 Consult: Infectious Disease Routine Consulting Provider: Tee Stacy Reason for Consult: COVID 19 pneumonia, had J&J vaccine, kidney failure EMERGENT Consult: No Notified: Yes Date Notified: 10/31/20 Time Notified: 08:52 Method of Notification: spoke to ans service Reason For Visit: COVID PNEUMONIA,LOBAR PNEUMONIA,ARF,HYPOXEMIA Diagnosis Discharge Diagnosis (1) COVID-19: Status: Acute Code(s): U07.1 - COVID-19 Medications at Discharge Home Medications lisinopril 20 mg PO DAILY 10/28/20 Hospital Course Operations None Procedures None Summary of Care Provided Minutes Spent on Discharge: 45 Hospital Course: Patient is a 70-year-old male with a past medical history as outlined was admitted through the ED on 10/28/2020 with a complaint of malaise, weakness and fatigue as well as generalized muscle aches and pains which have been going on for several days prior to admission. On admission, he was found to be Covid positive and was hypoxic. Patient had received the Gil and Gil vaccine in May. Creatinine was elevated at 10 on admission and sodium was 129 with bicarb of 17. Covid test done was positive. He was admitted and managed for acute hypoxic respiratory failure due to COVID-19 infection as well as WOJCIECH. Nephrology was consulted and patient was started on Decadron. He could not be started on remdesivir on account of acute kidney injury. He was hydrated with IV fluids. Creatinine gradually trended downwards. Chest x-ray done showed right upper lobe infiltrate versus atelectasis and CT of the chest done was negative for any evidence of PE. Critical care was also consulted. Patient kept requiring increasing amounts of oxygen and ended up being transferred to the ICU. He required AirVo with high flow oxygen. Kidney function gradually improved with fluids and he did not require dialysis. Renal ultrasound done showed a small left renal cysts and enlarged prostate but no evidence of hydronephrosis. Patient was gradually weaned off of AirVo and transferred out of the ICU. Patient initially kept on requiring over 6 L of oxygen with walking pulse ox and also became tachypneic. He was weaned down to 2 L of oxygen and required only 2 L of oxygen with ambulatory pulse ox on 11/09/2020. He did complete a course of remdesivir and Decadron. He was discharged home on 11/09/2020. He is to remain in isolation till 11/13/2020 which will complete a 20-day quarantine form start of symptoms on 10/24/2020. He is to follow-up with his primary care doctor in 1 to 2 weeks. Patient seen and examined prior to discharge. He felt well and had no complaints. Review of symptoms otherwise negative. Labs and vitals reviewed. Medication reviewed and reconciled. Physical Exam Const alert, oriented x3 and no apparent distress General Appearance: cooperative, comfortable, well kempt and well developed Orientation / Consciousness: awake, oriented to person, oriented to place and oriented to time Exam Limitations: no limitations HEENT normocephalic, head/scalp atraumatic and moist oral mucous membranes Eyes PERRL, EOMs intact bilaterally and conjunctivae normal Neck nuchal rigidity, no lymphadenopathy, supple, no JVD, thyroid normal and no carotid bruits General: trachea midline Resp normal respiratory effort, no retractions, no use of accessory muscles and clear to auscultation bilaterally Resp Narrative: diminished breath sounds bilaterally, bilateral crackles, no wheezing. on 2L of oxygen by nasal canula. Auscultation: Negative for rales, rhonchi or wheezes Cardio regular rate, regular rhythm, S1 normal heart sound, S2 normal heart sound and no murmurs GI normal to inspection, nondistended, normoactive bowel sounds, soft to palpation, non-tender and non-distended Extremity normal to inspection, full ROM and no clubbing, cyanosis or edema Extremity Narrative: Right AKA Skin no rashes or lesions noted General Skin Exam: no breakdown Neuro oriented x3, CN's II-XII intact bilaterally, moves all extremities, no focal motor deficits and no sensory deficits noted Sensorium / Orientation: awake and alert Speech: speech normal Psych thought process normal and affect normal Medical Records Data Medical Nutrition Assessment Dietitian: Malnutrition Criteria Met Start: 10/29/20 11:27 Freq: Status: Active Protocol: Document 11/08/20 12:10 RMA (Rec: 11/08/20 12:10 RMA [id number]) Nutrition Malnutrition Evidence of Malnutrition Exists Yes Malnutrition (moderate): Acute Illness/Injury Evidenced By Suboptimal Energy Intake ( Severe),Weight Loss (Moderate) Clinical Problem Acute Disease or Injury Related Malnutrition Etiology Moderate malnutrition in the context of acute illness related to inadequate energy intake Signs/Symptoms as evidenced by 5% wt loss x 1 month, </=50% energy intake compared to estimated energy needs x 5 days prior to admission, currently taking~50 % of meals. Status Active Problem Recommendation Dietitian Recommendations/Changes Continue Regular diet and will change solid food texture to regular, continue thin liquids as ordered. 120ml strawberry ensure enlive BID w/ break & dinner and magic cup w/ lunch. Weight / BMI Weight Weight: 170 lb 13.732 oz Body Mass Index (BMI) 27.6 ABG / Lab / Microbiology Data Result Diagrams: 11/03/20 06:26 11/08/20 06:42 Microbiology: Microbiology 10/28/20 21:40 Blood Culture (Wb) #2 - Anticubital Right Blood Culture - Final No growth in 5 days. 10/28/20 13:45 Blood Culture (Wb) - Anticubital Left Blood Culture - Final No growth in 5 days. 10/28/20 11:55 Mucosa - Nose SARS-CoV-2 Antigen (Rapid) - Final SARS-CoV-2 (COVID 19) 10/28/20 11:55 Mucosa - Nose Influenza Types A,B Direct FA (KENNY) - Final D/C Instructions Please Follow Up With: Dr Torres @ [facility] in [place], [place] Meaningful Use Info Meaningful Use Diagnoses (Choose all that apply): None applicable Discharge Plan Admission Admit Date/Time: 10/28/20 16:22 Primary Reason for Your Visit: acute hypoxic respiratory failure due to COVID 19 infection Attending Provider: Melissa Ingram Consulting Providers: Tee Stacy ; Shamar Irby ; Garcia Landry ; Kourtney Mosley RUBBER COMPOUNDER SUPERVISOR ; Aliza Mccullough ; Instructions Patient Instructions: Coronavirus Disease 2019 (COVID-19): Overview, Coronavirus Disease 2019 (COVID-19): Prevention, Coronavirus Disease 2019 (COVID-19): Caring for Yourself or Others Additional Instructions / Restrictions: To remain in self isolation till 11/13/2020. To use oxygen 2L as needed for shortness of breath Discharge Orders/Prescriptions Prescriptions: Continued lisinopril 20 mg Tablet 20 mg PO DAILY RF: 0 Referrals / Follow Up: CHARLENE POOLE [Other] - Within 2 Weeks Care Physician,No Primary [NON-STAFF] - Disposition Disposition (needs filled in before D/C Order can be placed): Home, Self Care Charges/Coding Visit Charges Inpatient E&M: 99962 Disch Hosp
[2020-11-09 11:44] VITALS: BP 108/86; PULSE 99; RESP 16; TEMP 36.1; O2SAT 98
[2020-11-09 16:17] VITALS: O2SAT 98
[2020-11-09 22:21] VITALS: BP 100/82; PULSE 109; RESP 18; TEMP 36.7; O2SAT 93
--- NOTE | 2020-11-10 14:17 | CASEMGMT ---
WILIAM REDDY COVID Follow Up Phone Call: MALACHIE: 8 Strata: 2 Call Date: 11/10/20 Discharge Date: 11/09/20 Time of Call: 1416 Duration:<1 min Admitting Dx: COVID 19 WILIAM REDDY attempted to complete follow up phone call after recent hospitalization for COVID 19. Call was transferred to an unidentified voicemail whose mailbox was full, unable to leave a message.
== END 2020-11-09 23:25 | disposition home or self-care (01) | DRG 177 ==
LOC: ED 14:59 → MS3 10-29 07:30 → ICU 11-03 10:00 → MS3 11-06 16:15
PROVIDERS: Internal Medicine; Internal Medicine Critical Care Medicine; Internal Medicine Infectious Disease; Internal Medicine Nephrology; Admitting Provider Internal Medicine; Emergency Provider Emergency Medicine; Visit Provider Student in an Organized Health Care Education/Training Program
DX: U07.1 COVID-19 (principal); J12.82 Pneumonia due to coronavirus disease 2019; J96.21 Acute and chronic respiratory failure with hypoxia; E43 Unspecified severe protein-calorie malnutrition; G93.41 Metabolic encephalopathy; N17.9 Acute kidney failure, unspecified; L97.929 Non-pressure chronic ulcer of unspecified part of left lower leg with unspecified severity; L97.919 Non-pressure chronic ulcer of unspecified part of right lower leg with unspecified severity; E87.2 Acidosis; I10 Essential (primary) hypertension; F17.210 Nicotine dependence, cigarettes, uncomplicated; I73.9 Peripheral vascular disease, unspecified; N40.0 Benign prostatic hyperplasia without lower urinary tract symptoms; Z89.611 Acquired absence of right leg above knee; Z79.899 Other long term (current) drug therapy; Z68.27 Body mass index [BMI] 27.0-27.9, adult
CPT/HCPCS: 36415; 71045; 71250; 71275; 76770; 80048; 80053; 80069; 81001; 82728; 83010; 83615; 83735; 83880; 84100; 84145; 84153; 84154; 84300; 84443; 84450; 84484; 85025; 85027; 85379; 85730; 86703; 87040; 87426; 87635; 87804; 92526; 92610; 93005; 94640; 94660; 97110; 97163; 97166; 97530; 97535; 97802; 97803; 99285; 99406; J7040; J7050; Q9967; U0005; A4216; J0696; J1940; U0003